=== PATIENT | female | born 1965 | race Caucasian/White ===

== ENCOUNTER 2017-08-16 19:47 | Emergency (ER) | payer OTHER ==
[2017-08-16 20:07] VITALS: BP 147/79; PULSE 69; TEMP 98.8; BMI 16.6
--- NOTE | 2017-08-16 20:09 | PDOC ---
Rapid Medical Evaluation Chief Complaint: Chest Pain Time Seen by Provider: 08/16/17 20:06 Medical Evaluation: Allergies Allergy/AdvReac Type Severity Reaction Status Date / Time No Known Allergies Allergy Verified 08/16/17 20:03 08/16/17 20:06 The patient presents with a chief complaint of: [Mid sternal chest pain to the left shoulder and back for one week. ] I have performed a brief in-person evaluation of this patient. Pertinent physical exam findings: vss, [Lungs clear, RRR,, ] I have ordered the following: [EKG] The patient will proceed to the ED for further evaluation. Discharge Disposition - Diagnosis Chest pain - Referrals - Patient Instructions - Post Discharge Activity
--- NOTE | 2017-08-16 20:58 | PDOC ---
History of Present Illness - General History Source: Patient <RosanaDari yuen - Last Filed: 08/17/17 00:51> <Nicky Landeros - Last Filed: 08/17/17 01:42> - General Chief Complaint: Chest Pain Stated Complaint: CHEST PAIN Time Seen by Provider: 08/16/17 20:06 - History of Present Illness Initial Comments: 08/16/17 22:29 The patient is a 52 year old female, with a significant past medical history of hypertension, H.Pylori, and a heart problem (reportedly prescribed verapamil in the past s/p echocardiogram) who presents to the emergency department with intermittent, anterior chest pain radiating to her posterior left shoulder for about 15 days. The patient states she was prompted to come to the ED today because her chest pain was much stronger. She reportedly took Tylenol for her chest pain with no relief. She denies any alleviating or exacerbating factors of pain. She also reports a few days with diffuse headache, nasal congestion, dry cough, nausea, and vomiting. The patients daughter at bedside states her mother vomits every day for a long time, however, the patient does not know why she vomits daily. The patient denies hematemesis or abdominal pain. She denies shortness of breath and dizziness. She denies fever, chills, diarrhea and constipation. She denies dysuria, frequency, urgency and hematuria. Allergies: NKDA Past surgical history: appendectomy, PCP: Dr. Slim Freed ([facility]) (Dari Harris) Past History <Dari Harris - Last Filed: 08/17/17 00:51> - Past Medical History COPD: No Diabetes: Yes Psychiatric Problems: Yes Other medical history: arthritis - Surgical History Appendectomy: Yes - Suicide/Smoking/Psychosocial Hx Smoking Status: No Smoking History: Never smoked Number of Cigarettes Smoked Daily: 0 If you are a former smoker, when did you quit?: 6 months ago Information on smoking cessation initiated: No <Nicky Landeros - Last Filed: 08/17/17 01:42> - Past Medical History Allergies/Adverse Reactions: Allergies Allergy/AdvReac Type Severity Reaction Status Date / Time No Known Allergies Allergy Verified 08/16/17 20:03 Review of Systems - Review of Systems Able to Perform ROS?: Yes <Dari Harris - Last Filed: 08/17/17 00:51> <Nicky Landeros - Last Filed: 08/17/17 01:42> - Review of Systems Comments:: 08/16/17 22:29 CONSTITUTIONAL: Absent: fever, chills, diaphoresis, generalized weakness, malaise, loss of appetite HEENT: (+) nasal congestion,Absent: rhinorrhea, throat pain, throat swelling, difficulty swallowing, mouth swelling, ear pain, eye pain, visual Changes CARDIOVASCULAR: (+) anterior chest pain radiating to back, Absent: syncope, palpitations, irregular heart rate, lightheadedness, peripheral edema RESPIRATORY: (+) dry cough. Absent: shortness of breath, dyspnea with exertion, orthopnea, wheezing, stridor, hemoptysis GASTROINTESTINAL: (+) nausea, vomiting, Absent: abdominal pain, abdominal distension,diarrhea, constipation, melena, hematochezia GENITOURINARY: Absent: dysuria, frequency, urgency, hesitancy, hematuria, flank pain, genital pain MUSCULOSKELETAL: Absent: myalgia, arthralgia, joint swelling SKIN: Absent: rash, itching, pallor HEMATOLOGIC/IMMUNOLOGIC: Absent: easy bleeding, easy bruising, lymphadenopathy, frequent infections ENDOCRINE: Absent: unexplained weight gain, unexplained weight loss, heat intolerance, cold intolerance NEUROLOGIC: (+) headache,Absent: focal weakness or paresthesias, dizziness, unsteady gait, seizure, mental status changes, bladder or bowel incontinence PSYCHIATRIC: Absent: anxiety, depression, suicidal or homicidal ideation, hallucinations. (Dari Harris) *Physical Exam <Dari Harris - Last Filed: 08/17/17 00:51> <Nicky Landeros - Last Filed: 08/17/17 01:42> - Vital Signs Last Vital Signs Temp Pulse Resp BP Pulse Ox 98.8 F 69 20 147/79 100 08/16/17 20:03 08/16/17 20:03 08/16/17 20:03 08/16/17 20:03 08/16/17 20:03 - Physical Exam Comments: 08/16/17 22:30 GENERAL: Well developed, well nourished. Awake and alert. No acute distress. HEENT: (+)dry mucous membranes. Normocephalic, atraumatic. PERRLA, EOMI. No conjunctival pallor. Sclera are non-icteric. Oropharynx is clear. NECK: Supple. Full ROM. No JVD. Carotid pulses 2+ and symmetric, without bruits. No thyromegaly. No lymphadenopathy. CARDIOVASCULAR: Regular rate and rhythm. No murmurs, rubs, or gallops. Distal pulses are 2+ and symmetric. PULMONARY: No evidence of respiratory distress. Lungs clear to auscultation bilaterally. No wheezing, rales or rhonchi. ABDOMINAL: Soft. Non-tender. Non-distended. No rebound or guarding. No organomegaly. Normoactive bowel sounds. MUSCULOSKELETAL Normal range of motion at all joints. No bony deformities or tenderness. No CVA tenderness. EXTREMITIES: No cyanosis. No clubbing. No edema. No calf tenderness. SKIN: Warm and dry. Normal capillary refill. No rashes. No jaundice. NEUROLOGICAL: Alert, awake, appropriate. Cranial nerves 2-12 intact. Normoreflexic in the upper and lower extremities. Normal speech. Toes are down-going bilaterally. Gait is normal without ataxia. PSYCHIATRIC: Cooperative. Good eye contact. Appropriate mood and affect. (Dari Harris) Heart Score/ECG Review <Dari Harris - Last Filed: 08/17/17 00:51> <Nicky Landeros - Last Filed: 08/17/17 01:42> - ECG Intrepretation Comment:: 08/16/17 23:58 EKG was read by Dr. Landeros at 20:13 Impression: Normal sinus rhythm, possible left atrial enlargement Vent. Rate: 63 bpm (Dari Harris) ED Treatment Course - LABORATORY CBC & Chemistry Diagram: 08/16/17 21:10 08/16/17 21:10 <Dari Harris - Last Filed: 08/17/17 00:51> - LABORATORY CBC & Chemistry Diagram: 08/16/17 21:10 08/16/17 21:10 <Nicky Landeros - Last Filed: 08/17/17 01:42> - ADDITIONAL ORDERS Additional order review: Laboratory Results 08/16/17 08/16/17 21:10 21:10 PT with INR 13.60 H INR 1.20 H Sodium 138 Potassium 4.4 Chloride 101 Carbon Dioxide 32 Anion Gap 5 L BUN 11 Creatinine 0.6 Creat Clearance w eGFR > 60 Random Glucose 296 H Calcium 8.0 L Magnesium 1.8 Total Bilirubin 0.1 L D AST 65 H ALT 94 H Alkaline Phosphatase 187 H Creatine Kinase 68 Troponin I < 0.02 Total Protein 6.6 Albumin 3.0 L 08/16/17 21:39 Influenza Types A,B Antigen (JOAO) - Final Nasopharyngeal Swab - Final 08/16/17 21:10 RBC 3.66 D MCV 85.5 MCHC 34.1 RDW 13.6 MPV 7.9 Neutrophils % 52.1 D Lymphocytes % 32.5 D Monocytes % 11.2 H Eosinophils % 3.1 Basophils % 1.1 D - RADIOLOGY Radiology Studies Ordered: Category Date Time Status CHEST X-RAY PORTABLE* [RAD] Stat Radiology 08/16/17 21:00 Completed ABDOMEN US -LIMITED [US] Stat Ultrasound 08/17/17 23:25 Taken Radiograph Interpretation: EXAM#: TYPE/EXAM: RESULT: [id number] RAD/CHEST X-RAY PORTABLE* Exam: Chest x-ray - single AP portable view. Indication: Chest pain. Comparison: None available. Findings: No evidence of airspace consolidation, pulmonary vascular congestion or pleural effusion. CT is more sensitive in detecting pulmonary nodules. There is no definable pneumothorax. Normal size of the cardiomediastinal silhouette. No abnormal deviation of the trachea. Impression: No evidence of airspace consolidation or pleural effusion. Reported By: Stefano Allen DO 08/17/17 0041 EXAM: ABDOMEN US -LIMITED HISTOR and Y: Abdominal pain COMPARISON: None. FINDINGS: Liver appears normal with no focal mass. Pancreas appears normal. Aorta appears normal. Inferior vena cava appears normal. Gallbladder is normal. Common bile duct is 4 mm which is normal. Right kidney appears normal. IMPRESSION: No acute findings Sohail Hobbs MD 08/17/2017 00:35 EST (Dari Harris) - Medications Given in the ED: ED Medications Discontinued Medications Generic Name Dose Route Start Last Admin Trade Name Freq PRN Reason Stop Dose Admin Aspirin 162 mg 08/16/17 20:59 08/16/17 21:15 Asa - PO 08/16/17 21:00 162 mg ONCE ONE Administration Diphenhydramine HCl 25 mg 08/16/17 23:32 08/16/17 23:51 Benadryl Injection - IVPUSH 08/16/17 23:33 25 mg ONCE ONE Administration Hydromorphone HCl 0.5 mg 08/16/17 23:23 08/16/17 23:25 Dilaudid Injection - IVPB 08/16/17 23:24 0.5 mg ONCE ONE Administration Sodium Chloride 1,000 mls @ 1,000 mls/hr 08/16/17 23:14 08/16/17 23:25 Normal Saline - IV 08/17/17 00:13 1,000 mls/hr ASDIR STA Administration Metoclopramide HCl 10 mg 08/16/17 23:31 08/16/17 23:51 Reglan Injection - IVPB 08/16/17 23:32 10 mg ONCE STA Administration Medical Decision Making <Dari Harris - Last Filed: 08/17/17 00:51> <Nicky Landeros - Last Filed: 08/17/17 01:42> - Medical Decision Making 08/16/17 22:01 52-year-old female presents with complaints of nasal congestion, headache, 15 days of left-sided chest pain radiating to his shoulder, chronic nausea and vomiting, hemorrhoids Past medical history significant for diabetes surgical history appendectomy, C- section 2 EKG is normal sinus rhythm at [address] Freed at [facility] cbc,comp,influenza (Nicky Landeros) *DC/Admit/Observation/Transfer <Dari Harris - Last Filed: 08/17/17 00:51> <Nicky Landeros - Last Filed: 08/17/17 01:42> Diagnosis at time of Disposition: Atypical chest pain, Nausea Diabetes Qualifiers: Diabetes mellitus type: type 1 Diabetes mellitus complication status: with hyperglycemia Qualified Code(s): E10.65 - Type 1 diabetes mellitus with hyperglycemia Pain in shoulder Qualifiers: Chronicity: unspecified Laterality: left Qualified Code(s): M25.512 - Pain in left shoulder - Discharge Dispostion Disposition: HOME Condition at time of disposition: Stable - Referrals Referrals: ON STAFF,NOT [Primary Care Provider] - - Patient Instructions Printed Discharge Instructions: DI for Nausea -- Adult, DI for Atypical Chest Pain, Type 1 Diabetes, DI for Diabetes Type 1 -- Adult, DI for Itching Additional Instructions: please followup with your doctor Continue your regular medications Print Language: BELARUSIAN - Post Discharge Activity - Attestations Scribe Attestion: 08/16/17 22:31 Documentation prepared by Dari Harris, acting as medical lab technologist for Nicky Landeros MD (Dari Harris)
[2017-08-16] MEDS ORDERED: ASPIRIN 81 MG CHEWABLE TABLETS PO ONE (20:59)
[2017-08-16] MEDS ORDERED: ASPIRIN COATED 81 MG TABLET.EC ONE (21:35)
[2017-08-16 21:42] LABS: BASO % 1.1 % (0-2.0); EOS % 3.1 % (0-4.5); HEMATOCRIT 31.3 % (32.4-45.2); HEMOGLOBIN 10.7 GM/dL (10.7-15.3); LYMPH % 32.5 % (8-40); MCH 29.2 pg (25.7-33.7); MCHC 34.1 g/dl (32.0-36.0); MEAN CELL VOLUME 85.5 fl (80-96); MEAN PLT VOLUME 7.9 fl (7.5-11.1); MONO % 11.2 % (3.8-10.2); NEUT % 52.1 % (42.8-82.8); PLATELET COUNT 401 K/MM3 (134-434); RBC 3.66 M/mm3 (3.60-5.2); RDW 13.6 % (11.6-15.6); WHITE BLOOD COUNT 6.5 K/mm3 (4.0-10.0)
[2017-08-16 21:52] LABS: INR 1.2 (0.82-1.09); PROTHROMBIN TIME (PATIENT) 13.6 SEC (9.98-11.88)
[2017-08-16 22:30] LABS: ANION GAP 5 (8-16); BILIRUBIN,TOTAL 0.1 mg/dL (0.2-1.0); BLOOD UREA NITROGEN 11 mg/dL (7-18); CHLORIDE 101 mmol/L (98-107); CO2 32 mmol/L (21-32); CREATININE 0.6 mg/dL (0.55-1.02); GLUCOSE,RANDOM 296 mg/dL (74-106); MAGNESIUM 1.8 mg/dL (1.8-2.4); POTASSIUM 4.4 mmol/L (3.5-5.1); SGOT/AST 65 U/L (15-37); SGPT/ALT 94 U/L (12-78); SODIUM 138 mmol/L (136-145); TOT PROT 6.6 g/dl (6.4-8.2)
[2017-08-16 22:34] LABS: ALK PHOS 187 U/L (45-117)
[2017-08-16] MEDS ORDERED: SODIUM CHLORIDE 1,000 ML IV STA (23:14)
[2017-08-16] MEDS ORDERED: HYDROmorphone HCL CARPU-JECT 1 MG/1 ML DISP.SYRIN IVPB ONE (23:23)
[2017-08-16] MEDS ORDERED: HYDROmorphone HCL CARPU-JECT 2 MG/1 ML DISP.SYRIN ONE (23:27)
[2017-08-16] MEDS ORDERED: METOCLOPRAMIDE HCL INJECTION 10 MG/2 ML VIAL IVPB STA (23:31)
[2017-08-16] MEDS ORDERED: METOCLOPRAMIDE HCL INJECTION 10 MG/2 ML VIAL ONE (23:32)
[2017-08-16] MEDS ORDERED: ONDANSETRON 4 MG/2 ML VIAL ONE (23:59)
--- NOTE | 2017-08-17 14:05 | EKG ---
Test Reason : Blood Pressure : / mmHG Vent. Rate : 063 BPM Atrial Rate : 063 BPM P-R Int : 146 ms QRS Dur : 090 ms QT Int : 416 ms P-R-T Axes : 065 078 079 degrees QTc Int : 425 ms NORMAL SINUS RHYTHM POSSIBLE LEFT ATRIAL ENLARGEMENT BORDERLINE ECG WHEN COMPARED WITH ECG OF 18-SEP-2011 15:45, NO SIGNIFICANT CHANGE WAS FOUND Confirmed by MD CHI, SHAYLA ([id number]) on 08/17/2017 2:05:41 PM Referred By: Confirmed By:SHAYLA MIRELES MD
== END 2017-08-17 01:38 | disposition home or self-care (01) ==
LOC: JER 19:47
PROC: 3E033NZ Introduction of Analgesics, Hypnotics, Sedatives into Peripheral Vein, Percutaneous Approach (ICD-10-PCS; principal; 2017-08-16)
PROC: 3E033GC Introduction of Other Therapeutic Substance into Peripheral Vein, Percutaneous Approach (ICD-10-PCS; 2017-08-16)
PROC: 3E033GC Introduction of Other Therapeutic Substance into Peripheral Vein, Percutaneous Approach (ICD-10-PCS; 2017-08-16)
DX: R07.89 Other chest pain (principal); M25.512 Pain in left shoulder; E10.65 Type 1 diabetes mellitus with hyperglycemia; I10 Essential (primary) hypertension
CPT/HCPCS: 36415; 71045-TC; 76705-TC; 80053; 82550; 83735; 84484; 85025; 85610; 87804; 93005; 93010; 96374; 96375; 96376; 99283-25

== ENCOUNTER 2017-12-04 11:08 | Emergency (ER) | payer OTHER ==
[2017-12-04 11:12] VITALS: BP 113/65; PULSE 79; TEMP 98.3; BMI 18.3
[2017-12-04] MEDS ORDERED: IBUPROFEN 400 MG TABLET (FP) PO ONE ×2 (12:20)
--- NOTE | 2017-12-04 12:32 | PDOC ---
History of Present Illness - General Chief Complaint: Eye Problem Stated Complaint: PAIN Time Seen by Provider: 12/04/17 11:31 History Source: Patient - History of Present Illness Timing/Duration: other (last night) Associated Symptoms: denies: headaches Past History - Past Medical History Allergies/Adverse Reactions: Allergies Allergy/AdvReac Type Severity Reaction Status Date / Time No Known Allergies Allergy Verified 12/04/17 11:11 Home Medications: Ambulatory Orders Hypromellose 0.5% Opth Soln [Artificial Tears] 1 - 2 drop OS DAILY #1 dropsbtl 12/04/17 Ibuprofen [Motrin -] 2 tab PO Q6H #30 tablet 12/04/17 COPD: No Diabetes: Yes Psychiatric Problems: Yes - Surgical History Appendectomy: Yes - Suicide/Smoking/Psychosocial Hx Smoking Status: No Smoking History: Never smoked Number of Cigarettes Smoked Daily: 0 If you are a former smoker, when did you quit?: 6 months ago Review of Systems - Review of Systems HEENTM: Yes: Eye Pain. No: Blurred Vision, Tearing Neurological: No: Headache, Dizziness *Physical Exam - Vital Signs Last Vital Signs Temp Pulse Resp BP Pulse Ox 98.3 F 79 18 113/65 100 12/04/17 11:09 12/04/17 11:09 12/04/17 11:09 12/04/17 11:09 12/04/17 11:09 - Physical Exam General Appearance: Yes: Appropriately Dressed. No: Apparent Distress HEENT: positive: Normal Voice, Other (b/l yellow fleshy deposits to nasal/ temporal conjunctiva of b/l eyes w/ erythema over L temporal pinguela extending to cornea w/ space between pinguela and edge of cornea c/w pingueculitis) Neck: positive: Supple Respiratory/Chest: negative: Respiratory Distress Integumentary: positive: Dry, Warm Neurologic: positive: Fully Oriented, Alert, Normal Mood/Affect Medical Decision Making - Medical Decision Making 12/04/17 12:23 52-year-old female, history of insulin-dependent diabetic, here with pain and redness to left eye that patient noticed last night. Denies discharge, tearing , photophobia, foreign body sensation or visual changes. No trauma and no contact lens use. No history of similar episode. Not on any blood thinners. See exam Possible pingueculitis Pt has b/l pinguecula w/ erythema over temporal pinguecula of L eye w/ space between pinguecula and edge of cornea -pain control in ER -dc w/ artificial tears and optho referral for further eval/management *DC/Admit/Observation/Transfer Diagnosis at time of Disposition: Pinguecula of both eyes, Pingueculitis of left eye - Discharge Dispostion Disposition: HOME Condition at time of disposition: Good - Prescriptions Prescriptions: Hypromellose 0.5% Opth Soln [Artificial Tears] 1 - 2 drop OS DAILY #1 dropsbtl Ibuprofen [Motrin -] 2 tab PO Q6H #30 tablet - Referrals Referrals: ON STAFF,NOT [Primary Care Provider] - Haseeb Ontiveros MD [Staff Physician] - - Patient Instructions Additional Instructions: It appears that she will have a condition called pinguecula of both eyes, which typically present as fleshy yellow deposits over the white area of your eyes. The redness and irritation of your left eye is possibly caused by inflammation of the pinguecula. Take Motrin for pain and use artificial tears as directed. You will need to follow-up with the eye doctor next week for further evaluation and management as necessary. Return to ER if symptoms worsen - Post Discharge Activity
== END 2017-12-04 12:48 | disposition home or self-care (01) ==
LOC: JERFT 11:08
DX: H10.813 Pingueculitis, bilateral (principal)
CPT/HCPCS: 99281-25

== ENCOUNTER 2018-04-26 01:49 | Inpatient (IN) | payer OTHER ==
[2018-04-26] MEDS ORDERED: PANTOPRAZOLE SODIUM 40 MG in SODIUM CHLORIDE 100 ML IVPB ONE (02:53)
[2018-04-26] MEDS ORDERED: ONDANSETRON 4 MG/2 ML VIAL IVPB ONE ×2 (02:53→05:50)
[2018-04-26] MEDS ORDERED: ACETAMINOPHEN 1000 MG/100 ML VIAL (NON FORMULARY) IVPB ONE (02:53)
--- NOTE | 2018-04-26 03:05 | PDOC ---
History of Present Illness - General Chief Complaint: Pain, Acute Stated Complaint: ABD PAIN,FEVER Time Seen by Provider: 04/26/18 02:45 - History of Present Illness Initial Comments: 04/26/18 02:55 52 F with h/o DM1, HTN, H pylori presenting with L sided abdominal pain and vomiting. Pt states that the pain began yesterday. It comes in waves and is severe when it occurs. Denies F/C. Endorses several episodes of vomiting. States that she started having dark colored vomitus with some blood. Denies BRBPR, denies melena. Has had prior and appendectomy. Denies flank pain. Past History - Past Medical History Allergies/Adverse Reactions: Allergies Allergy/AdvReac Type Severity Reaction Status Date / Time No Known Allergies Allergy Verified 04/26/18 02:03 Home Medications: Ambulatory Orders Hypromellose 0.5% Opth Soln [Artificial Tears] 1 - 2 drop OS DAILY #1 dropsbtl 12/04/17 Atorvastatin Calcium [Lipitor] 10 mg HS 04/26/18 Insulin Aspart [Novolog] 30 unit SQ AC 04/26/18 Insulin Glargine,Hum.rec.anlog [Basaglar Kwikpen U-100] 40 unit SQ BID 04/26/18 Montelukast Na [Singulair -] 10 mg PO HS 04/26/18 Polyethylene Glycol 3350 [Miralax (For Daily Use) -] 17 gm PO DAILY 04/26/18 Sennosides [Senna] 17.2 mg PO DAILY 04/26/18 Asthma: Yes COPD: No Diabetes: Yes GI Disorders: Yes (chronic constipation) HTN: No Hypercholesterolemia: Yes Psychiatric Problems: Yes - Surgical History Appendectomy: Yes - Immunization History Immunization Up to Date: Yes - Suicide/Smoking/Psychosocial Hx Smoking Status: No Smoking History: Never smoked Have you smoked in the past 12 months: No Number of Cigarettes Smoked Daily: 0 If you are a former smoker, when did you quit?: 6 months ago Information on smoking cessation initiated: No Hx Alcohol Use: No Drug/Substance Use Hx: No Review of Systems - Review of Systems Comments:: 04/26/18 02:58 GENERAL/CONSTITUTIONAL: No fever or chills. No weakness. HEAD, EYES, EARS, NOSE AND THROAT: No change in vision. No ear pain or discharge. No sore throat. CARDIOVASCULAR: No chest pain or shortness of breath. RESPIRATORY: No cough, wheezing, or hemoptysis. GASTROINTESTINAL: + abdominal pain, nausea, and vomiting, no diarrhea or constipation. GENITOURINARY: No dysuria, frequency, or change in urination. MUSCULOSKELETAL: No joint or muscle swelling or pain. No neck or back pain. SKIN: No rash NEUROLOGIC: No headache, vertigo, loss of consciousness, or change in strength/ sensation. ENDOCRINE: No increased thirst. No abnormal weight change. HEMATOLOGIC/LYMPHATIC: No anemia, easy bleeding, or history of blood clots. ALLERGIC/IMMUNOLOGIC: No hives or skin allergy. *Physical Exam - Vital Signs Last Vital Signs Temp Pulse Resp BP Pulse Ox 98.3 F 81 18 138/76 98 04/26/18 01:50 04/26/18 01:50 04/26/18 01:50 04/26/18 01:50 04/26/18 01:50 - Physical Exam Comments: 04/26/18 02:59 GENERAL: Awake, alert, and fully oriented, in no acute distress. HEAD: No signs of trauma EYES: PERRLA, EOMI, sclera anicteric, conjunctiva clear ENT: Auricles normal inspection, hearing grossly normal, nares patent, oropharynx clear without exudates. Moist mucosa NECK: Nontender, no stepoffs, Normal ROM, supple, no lymphadenopathy, JVD, or masses LUNGS: Breath sounds equal, clear to auscultation bilaterally. No wheezes, and no crackles HEART: Regular rate and rhythm, normal S1 and S2, no murmurs, rubs or gallops ABDOMEN: +LUQ and LLQ TTP, normoactive bowel sounds. No guarding, no rebound. No masses EXTREMITIES: Normal range of motion, no edema. No clubbing or cyanosis. No cords, erythema, or tenderness NEUROLOGICAL: Cranial nerves II through XII intact. 5/5 strength and sensation in all extremities, Normal speech, normal gait, normal cerebellar function SKIN: Warm, Dry, normal turgor, no rashes or lesions noted. ED Treatment Course - LABORATORY CBC & Chemistry Diagram: 04/26/18 03:18 04/26/18 03:18 - RADIOLOGY Radiology Studies Ordered: Category Date Time Status ABDOMEN & PELVIS CT WITH CONTR [CT] Stat CT Scan 04/26/18 02:53 Ordered Medical Decision Making - Medical Decision Making 04/26/18 02:59 52 F with L sided abdominal pain. Suspect gastritis vs PUD vs gastroparesis. Will obtain CT to r/o colitis vs diverticulitis. - Labs, lipase - CTAP - IVF, zofran, protonix 04/26/18 05:[address] shows duodenitis Pt reassessed - stilll complaining of nausea and lightheadedness. Will order more zofran, fluids, and maalox *DC/Admit/Observation/Transfer Diagnosis at time of Disposition: Duodenitis Nausea and vomiting Qualifiers: Vomiting type: unspecified Vomiting Intractability: intractable Qualified Code( s): R11.2 - Nausea with vomiting, unspecified Diabetes Qualifiers: Diabetes mellitus type: type 2 Diabetes mellitus care home insulin use: unspecified intermediate accountant insulin use status Diabetes mellitus complication status: with unspecified complications Qualified Code(s): E11.8 - Type 2 diabetes mellitus with unspecified complications - Discharge Dispostion Condition at time of disposition: Fair - Referrals - Patient Instructions - Post Discharge Activity - Attestations Physician Attestion: 04/26/18 20:22 I, Dr. Terrance Madrigal MD, attest that this document has been prepared under my direction and personally reviewed by me in its entirety. I further attest, that it accurately reflects all work, treatment, procedures and medical decision -making performed by me.
[2018-04-26 03:29] LABS: BASO % 0.2 % (0-2.0); EOS % 3.2 % (0-4.5); HEMATOCRIT 34.1 % (32.4-45.2); HEMOGLOBIN 11.7 GM/dL (10.7-15.3); LYMPH % 12.4 % (8-40); MCH 29.3 pg (25.7-33.7); MCHC 34.4 g/dl (32.0-36.0); MEAN CELL VOLUME 85.1 fl (80-96); MEAN PLT VOLUME 7.2 fl (7.5-11.1); MONO % 9.6 % (3.8-10.2); NEUT % 74.6 % (42.8-82.8); PLATELET COUNT 395 K/MM3 (134-434); RDW 12.9 % (11.6-15.6); WHITE BLOOD COUNT 11.6 K/mm3 (4.0-10.0)
[2018-04-26 03:54] LABS: ALBUMIN 3.2 g/dl (3.4-5.0); ALK PHOS 142 U/L (45-117); ANION GAP 5 MMOL/L (8-16); BILIRUBIN,TOTAL 0.3 mg/dL (0.2-1); BLOOD UREA NITROGEN 8 mg/dL (7-18); CALCIUM 8.6 mg/dL (8.5-10.1); CHLORIDE 99 mmol/L (98-107); CO2 31 mmol/L (21-32); CREATININE 0.5 mg/dL (0.55-1.3); GLUCOSE,RANDOM 255 mg/dL (74-106); LIPASE 69 U/L (73-393); POTASSIUM 4.8 mmol/L (3.5-5.1); SGOT/AST 21 U/L (15-37); SGPT/ALT 39 U/L (13-61); SODIUM 135 mmol/L (136-145)
[2018-04-26 04:30] LABS: ACETONE SERUM NEGATIVE (NEGATIVE)
[2018-04-26] MEDS ORDERED: morphine CARPU-JECT 4 MG/1 ML DISP.SYRIN IVPUSH ONE (04:42)
[2018-04-26 04:45] LABS: URINE APPEARANCE CLEAR; URINE BILIRUBIN NEGATIVE (<2.0 mg/dL); URINE COLOR STRAW; URINE GLUCOSE (UA) 3+ (NEGATIVE); URINE KETONE NEGATIVE (NEGATIVE); URINE LEUK ESTERASE NEGATIVE (NEGATIVE); URINE NITRITE NEGATIVE (NEGATIVE); URINE PROTEIN NEGATIVE (NEGATIVE); URINE UROBILINOGEN NEGATIVE mg/dL (0.2-1.0)
[2018-04-26] MEDS ORDERED: MAG HYDROX/AL HYDROX/SIMETH 30 ML UNIT-DOSE CUP PO ONE (05:50)
[2018-04-26] MEDS ORDERED: SODIUM CHLORIDE 1,000 ML IV STA (05:50)
[2018-04-26] MEDS ORDERED: MAG HYDROX/AL HYDROX/SIMETH 30 ML UNIT-DOSE CUP ONE (05:52)
[2018-04-26] MEDS ORDERED: ONDANSETRON 4 MG/2 ML VIAL ONE (05:53)
[2018-04-26] MEDS ORDERED: METOCLOPRAMIDE HCL INJECTION 10 MG/2 ML VIAL IVPUSH ONE (06:40)
[2018-04-26] MEDS ORDERED: METOCLOPRAMIDE HCL INJECTION 10 MG/2 ML VIAL ONE (06:47)
--- NOTE | 2018-04-26 07:52 | PDOC ---
*Physical Exam - Vital Signs Last Vital Signs Temp Pulse Resp BP Pulse Ox 98.3 F 81 18 138/76 98 04/26/18 01:50 04/26/18 01:50 04/26/18 01:50 04/26/18 01:50 04/26/18 01:50 - Physical Exam Comments: 04/26/18 07:48 Vital signs within normal limits Generally weak appearing, dry mucosa, no jaundice or pallor Heart is regular, lungs are clear Abdomen is soft and nondistended, diffusely tender without focal guarding or rebound, bowel sounds are slightly decreased ED Treatment Course - LABORATORY CBC & Chemistry Diagram: 04/26/18 03:18 04/26/18 03:18 - ADDITIONAL ORDERS Additional order review: Laboratory Results 04/26/18 04/26/18 04/26/18 04:38 03:18 03:18 Sodium Potassium Chloride Carbon Dioxide Anion Gap BUN Creatinine Creat Clearance w eGFR Random Glucose Calcium Phosphorus 3.3 Magnesium 1.9 Total Bilirubin AST ALT Alkaline Phosphatase Creatine Kinase Troponin I Total Protein Albumin Lipase Urine Color Straw Urine Appearance Clear Urine pH 7.0 Ur Specific [place] 1.020 Urine Protein Negative Urine Glucose (UA) 3+ H Urine Ketones Negative Urine Blood Negative Urine Nitrite Negative Urine Bilirubin Negative Urine Urobilinogen Negative Ur Leukocyte Esterase Negative Acetone, Qual 04/26/18 04/26/18 03:18 03:18 Sodium 135 L Potassium 4.8 Chloride 99 Carbon Dioxide 31 Anion Gap 5 L BUN 8 Creatinine 0.5 L Creat Clearance w eGFR > 60 Random Glucose 255 H Calcium 8.6 Phosphorus Magnesium Total Bilirubin 0.3 AST 21 ALT 39 Alkaline Phosphatase 142 H Creatine Kinase 46 Troponin I < 0.02 Total Protein 7.0 Albumin 3.2 L Lipase 69 L Urine Color Urine Appearance Urine pH Ur Specific [place] Urine Protein Urine Glucose (UA) Urine Ketones Urine Blood Urine Nitrite Urine Bilirubin Urine Urobilinogen Ur Leukocyte Esterase Acetone, Qual Negative L 04/26/18 03:18 RBC 4.00 MCV 85.1 MCHC 34.4 RDW 12.9 MPV 7.2 L Neutrophils % 74.6 D Lymphocytes % 12.4 D Monocytes % 9.6 Eosinophils % 3.2 Basophils % 0.2 - Medications Given in the ED: ED Medications Discontinued Medications Generic Name Dose Route Start Last Admin Trade Name Freq PRN Reason Stop Dose Admin Acetaminophen 1,000 mg 04/26/18 02:53 04/26/18 03:15 Ofirmev Injection - IVPB 04/26/18 02:54 1,000 mg ONCE ONE Administration Al Hydroxide/Mg Hydroxide 30 ml 04/26/18 05:50 04/26/18 06:00 Mylanta Oral Suspension - PO 04/26/18 05:51 30 ml ONCE ONE Administration Pantoprazole Sodium 40 mg/ 100 mls @ 200 mls/hr 04/26/18 02:53 04/26/18 03:15 Sodium Chloride IVPB 04/26/18 03:22 200 mls/hr ONCE ONE Administration Sodium Chloride 1,000 mls @ 1,000 mls/hr 04/26/18 05:50 04/26/18 06:00 Normal Saline - IV 04/26/18 06:49 1,000 mls/hr ASDIR STA Administration Metoclopramide HCl 10 mg 04/26/18 06:40 04/26/18 06:51 Reglan Injection - IVPUSH 04/26/18 06:41 10 mg ONCE ONE Administration Morphine Sulfate 4 mg 04/26/18 04:42 04/26/18 05:00 Morphine Injection - IVPUSH 04/26/18 04:43 4 mg ONCE ONE Administration Ondansetron HCl 4 mg 04/26/18 02:53 04/26/18 03:15 Zofran Injection IVPB 04/26/18 02:54 4 mg ONCE ONE Administration Ondansetron HCl 4 mg 04/26/18 05:50 04/26/18 06:00 Zofran Injection IVPB 04/26/18 05:51 4 mg ONCE ONE Administration Medical Decision Making - Medical Decision Making 04/26/18 07:49 This is a 52-year-old female with history of hypertension, diabetes, possible gastritis versus ulcer disease, surgical history significant for appendectomy and presents today with nausea/vomiting, possibly bloody. Vitals in the emergency department have been within normal limits, labs were also normal including lipase and urinalysis, a CAT scan of the abdomen and pelvis was preliminarily read as duodenitis but no evidence of obstruction. The patient's symptoms improved after one round of medications but then returned and required a second round. Plan at sign out was to reassess and disposition accordingly. On my reevaluation, the patient remains nauseous and in pain and is unwilling to tolerate by mouth at this time. Suspect severe gastritis with intractable nausea/vomiting versus gastroparesis picture in this diabetic patient. Patient states prior similar episodes have required admission , her last endoscopy was many years ago. Her primary care and GI specialist are D[facility]. Continue IV fluid hydration, admit. 04/26/18 08:23 Accepted for inpt med/surg by Dr. Andrews, signout given to Dr. Ibrahim *DC/Admit/Observation/Transfer Diagnosis at time of Disposition: Duodenitis Nausea and vomiting Qualifiers: Vomiting type: unspecified Vomiting Intractability: intractable Qualified Code( s): R11.2 - Nausea with vomiting, unspecified Diabetes Qualifiers: Diabetes mellitus type: type 2 Diabetes mellitus roasterman insulin use: unspecified roasterman insulin use status Diabetes mellitus complication status: with unspecified complications Qualified Code(s): E11.8 - Type 2 diabetes mellitus with unspecified complications - Discharge Dispostion Condition at time of disposition: Fair Decision to Admit order: Yes - Referrals - Patient Instructions - Post Discharge Activity
--- NOTE | 2018-04-26 08:26 | HP ---
CHIEF COMPLAINT: N/V and abdominal pain PCP: [facility] HISTORY OF PRESENT ILLNESS: 52yo F with history of DM1, HTN, previous H. Pylori infection multiple years ago who presents with nause, nonbilious vomiting and abdominal pain. With translation by her daughter, pt reports her nausea and vomiting starting about a month ago, however she came today to the ER because she started to see streaks of blood in her emesis. She reports seeing a submarine operator in [facility] who she follows with. Her last endoscopy was around 8 years ago and last colonscopy was around 6 years ago without any notable findings (per pt). Her last BM was around 2-3 days ago which was normal in caliber and quality, however she admits to using Miralax and Senna regularly due to constipation. Currently her abdominal pain as resolved, however upon admission she reports the pain was mostly LUQ without any particular radiation which gets better when eating food. ER course was notable for: (1) IVF hydration (1L NS total) (2) Multiple doses of Zofran and Reglan (3) Failed PO trial after treatment has initiated Recent Travel: Denies PAST MEDICAL HISTORY: As above PAST SURGICAL HISTORY: Appendectomy (when pt was child) x1 Social History: Smoking: Denies Alcohol: Denies Drugs: Denies Lives at home with daughter Family History: No history of colon, gastric, or pancreatic cancer Allergies No Known Allergies Allergy (Verified 04/26/18 02:03) HOME MEDICATIONS: Home Medications Medication Instructions Recorded Hypromellose 0.5% Opth Soln 1 - 2 drop OS DAILY #1 dropsbtl 12/04/17 [Artificial Tears] Atorvastatin Calcium [Lipitor] 10 mg HS 04/26/18 Montelukast Na [Singulair -] 10 mg PO HS 04/26/18 Polyethylene Glycol 3350 [Miralax 17 gm PO DAILY 04/26/18 (For Daily Use) -] Sennosides [Senna] 17.2 mg PO DAILY 04/26/18 REVIEW OF SYSTEMS CONSTITUTIONAL: Present: Loss of appetite Absent: fever, chills, diaphoresis, generalized weakness, malaise, weight change HEENT: Absent: rhinorrhea, nasal congestion, throat pain, throat swelling, difficulty swallowing, mouth swelling, ear pain, eye pain, visual changes CARDIOVASCULAR: Absent: chest pain, syncope, palpitations, irregular heart rate, lightheadedness , peripheral edema RESPIRATORY: Absent: cough, shortness of breath, dyspnea with exertion, orthopnea, wheezing, stridor, hemoptysis GASTROINTESTINAL: Present: Abdominal pain, nausea, vomiting Absent: abdominal distension, diarrhea, melena, hematochezia GENITOURINARY: Absent: dysuria, frequency, urgency, hesitancy, hematuria, flank pain MUSCULOSKELETAL: Absent: myalgia, arthralgia, joint swelling, back pain, neck pain SKIN: Absent: rash, itching, pallor PHYSICAL EXAMINATION Vital Signs - 24 hr 04/26/18 01:50 Temperature 98.3 F Pulse Rate 81 Respiratory 18 Rate Blood Pressure 138/76 O2 Sat by Pulse 98 Oximetry (%) GENERAL: NAD, awake, alert, and fully oriented HEENT: NC/AT, EOMi, SHAMA, sclera anicteric, [id number] mucosa NECK: No JVD LUNGS: CTA bilaterally. No wheezes, and no crackles. No accessory muscle use. HEART: RRR, normal S1 and S2 without murmur ABDOMEN: Soft, hypoactive BS, nondistended, tenderness in epigastric region L>R , minimal voluntary guarding, no masses, no ecchymotic regions, no hepatomegaly via percussion. RECTAL: Pt declined MUSCULOSKELETAL: No CVA tenderness. EXTREMITIES: 2+ DP pulses, warm, well-perfused. No peripheral edema PSYCHIATRIC: Cooperative. Good eye contact. Appropriate mood and affect. SKIN: Warm, dry, normal turgor, no rashes or lesions noted Laboratory Results - last 24 hr 04/26/18 04/26/18 04/26/18 03:18 03:18 03:18 WBC 11.6 H RBC 4.00 Hgb 11.7 Hct 34.1 MCV 85.1 MCH 29.3 MCHC 34.4 RDW 12.9 Plt Count 395 MPV 7.2 L Absolute Neuts (auto) 8.6 H Neutrophils % 74.6 D Lymphocytes % 12.4 D Monocytes % 9.6 Eosinophils % 3.2 Basophils % 0.2 Nucleated RBC % 0 Sodium 135 L Potassium 4.8 Chloride 99 Carbon Dioxide 31 Anion Gap 5 L BUN 8 Creatinine 0.5 L Creat Clearance w eGFR > 60 Random Glucose 255 H Calcium 8.6 Phosphorus Magnesium Total Bilirubin 0.3 AST 21 ALT 39 Alkaline Phosphatase 142 H Creatine Kinase 46 Troponin I < 0.02 Total Protein 7.0 Albumin 3.2 L Lipase 69 L Urine Color Urine Appearance Urine pH Ur Specific [place] Urine Protein Urine Glucose (UA) Urine Ketones Urine Blood Urine Nitrite Urine Bilirubin Urine Urobilinogen Ur Leukocyte Esterase Acetone, Qual Negative L 04/26/18 04/26/18 04/26/18 03:18 03:18 04:38 WBC RBC Hgb Hct MCV MCH MCHC RDW Plt Count MPV Absolute Neuts (auto) Neutrophils % Lymphocytes % Monocytes % Eosinophils % Basophils % Nucleated RBC % Sodium Potassium Chloride Carbon Dioxide Anion Gap BUN Creatinine Creat Clearance w eGFR Random Glucose Calcium Phosphorus 3.3 Magnesium 1.9 Total Bilirubin AST ALT Alkaline Phosphatase Creatine Kinase Troponin I Total Protein Albumin Lipase Urine Color Straw Urine Appearance Clear Urine pH 7.0 Ur Specific [place] 1.020 Urine Protein Negative Urine Glucose (UA) 3+ H Urine Ketones Negative Urine Blood Negative Urine Nitrite Negative Urine Bilirubin Negative Urine Urobilinogen Negative Ur Leukocyte Esterase Negative Acetone, Qual ASSESSMENT/PLAN: 52yo F with prolonged duration of nause and vomiting found to have duodenitis on CT a/p noncontrast and failed PO trial 1) Duodenitis with possible component of diabetic gastroparesis --Likely will need to r/o causes of duodenitis --H. Pylori stool Ag testing --TTG IgA --Streaks of blood seen is likely Vivi-Clemente tearing from multiple episodes of vomiting --GI consult placed --Zofran 4mg q4h PRN nausea --Reglan can alternate PRN for nausea if second agent needed --PO Trial once nausea and vomiting under control 2) DM --ISS --BGM ACHS --Pt's home medication Basaglar 40U BID and Novolog flexpen 20U TIDAC --Will place on Levem[place] 20U BID for basal insulin due to NPO status and will titrate as needed FEN: Fluids: LR@100cc/hr Electrolyte abnormalities: None currently Nutrition: Bowel rest for now PPX: DVT - SCDs; early ambulation GI - Protonix 40mg qDaily IVP Medications confirmed with pharmacy and patient Dispo: Admit to M/S Case discussed with Dr. Darryl Ibrahim, DO - IM PGY-2 Visit type - Emergency Visit Emergency Visit: Yes ED Registration Date: 04/26/18 Care time: The patient presented to the Emergency Department on the above date and was hospitalized for further evaluation of their emergent condition. - New Patient This patient is new to me today: Yes Date on this admission: 04/26/18 - Critical Care Critical Care patient: No
[2018-04-26] MEDS ORDERED: ONDANSETRON 4 MG/2 ML VIAL IVPUSH PRN (08:27)
[2018-04-26] MEDS ORDERED: SODIUM CHLORIDE 1,000 ML IV ONE (09:07)
[2018-04-26] MEDS: LACTATED RINGERS SOLUTION 1,000 ML/1,000 ML INFUS.BAG IV SCH ×2 (09:13→16:52)
--- NOTE | 2018-04-26 09:41 | PN ---
Teaching Attending Note Name of Resident: Earnest Ibrahim ATTENDING PHYSICIAN STATEMENT I saw and evaluated the patient. I reviewed the resident's note and discussed the case with the resident. I agree with the resident's findings and plan as documented. SUBJECTIVE: This is a 52 year old woman with a history of HTN, type 1 DM, H. pylori who comes to the ED complaining of abdominal pain, nausea, and vomiting. The pain is located in the LUQ and is relieved by eating. She has had symptoms for about 1 month. Today she noticed some bloody streaks when she vomited so she decided to come to the ED. She denies melena, rectal bleeding, weight loss, fever, chills. In the ED, she has been treated with IV fluid, Zofran, Reglan with no significant improvement. OBJECTIVE: Vital Signs Period Temp Pulse Resp BP Sys/Regalado Pulse Ox Last 24 Hr 98.3 F-98.4 F 64-81 17-18 89-138/56-76 98-98 HEART: S1S2, RRR LUNGS: Clear ABDOMEN: Soft, (+) epigastric tenderness, non-distended, normal BS EXTREMITIES: No edema Laboratory Tests 04/26/18 04/26/18 04/26/18 03:18 03:18 03:18 WBC 11.6 H RBC 4.00 Hgb 11.7 Hct 34.1 MCV 85.1 MCH 29.3 MCHC 34.4 RDW 12.9 Plt Count 395 MPV 7.2 L Absolute Neuts (auto) 8.6 H Neutrophils % 74.6 D Lymphocytes % 12.4 D Monocytes % 9.6 Eosinophils % 3.2 Basophils % 0.2 Nucleated RBC % 0 Sodium 135 L Potassium 4.8 Chloride 99 Carbon Dioxide 31 Anion Gap 5 L BUN 8 Creatinine 0.5 L Creat Clearance w eGFR > 60 Random Glucose 255 H Calcium 8.6 Phosphorus Magnesium Total Bilirubin 0.3 AST 21 ALT 39 Alkaline Phosphatase 142 H Creatine Kinase 46 Troponin I < 0.02 Total Protein 7.0 Albumin 3.2 L Lipase 69 L Urine Color Urine Appearance Urine pH Ur Specific [place] Urine Protein Urine Glucose (UA) Urine Ketones Urine Blood Urine Nitrite Urine Bilirubin Urine Urobilinogen Ur Leukocyte Esterase Acetone, Qual Negative L 04/26/18 04/26/18 04/26/18 03:18 03:18 04:38 WBC RBC Hgb Hct MCV MCH MCHC RDW Plt Count MPV Absolute Neuts (auto) Neutrophils % Lymphocytes % Monocytes % Eosinophils % Basophils % Nucleated RBC % Sodium Potassium Chloride Carbon Dioxide Anion Gap BUN Creatinine Creat Clearance w eGFR Random Glucose Calcium Phosphorus 3.3 Magnesium 1.9 Total Bilirubin AST ALT Alkaline Phosphatase Creatine Kinase Troponin I Total Protein Albumin Lipase Urine Color Straw Urine Appearance Clear Urine pH 7.0 Ur Specific [place] 1.020 Urine Protein Negative Urine Glucose (UA) 3+ H Urine Ketones Negative Urine Blood Negative Urine Nitrite Negative Urine Bilirubin Negative Urine Urobilinogen Negative Ur Leukocyte Esterase Negative Acetone, Qual Home Medications Medication Instructions Recorded Hypromellose 0.5% Opth Soln 1 - 2 drop OS DAILY #1 dropsbtl 12/04/17 [Artificial Tears] Atorvastatin Calcium [Lipitor] 10 mg HS 04/26/18 Montelukast Na [Singulair -] 10 mg PO HS 04/26/18 Polyethylene Glycol 3350 [Miralax 17 gm PO DAILY 04/26/18 (For Daily Use) -] Sennosides [Senna] 17.2 mg PO DAILY 04/26/18 ASSESSMENT AND PLAN: This is a 52 year old woman with a history of HTN, hyperlipidemia, asthma, type 1 DM, H. pylori who presented to the ED with abdominal pain, nausea, and vomiting, and was found to have duodenitis on CT. 1. Duodenitis with intractable nausea, vomiting - Blood may be secondary to Vivi-Clemente tear - NPO - IV fluid - Protonix - Monitor hgb - GI consult - will need EGD to evaluate for causes of duodenitis 2. Type 1 DM - Decrease long acting insulin while NPO - Fingersticks with Novolog sliding scale 3. Hyperlipidemia - Continue Lipitor 4. Asthma - Stable - Continue Singulair
[2018-04-26] MEDS ORDERED: PANTOPRAZOLE SODIUM 40 MG VIAL IVPUSH SCH (10:00)
[2018-04-26] MEDS ORDERED: PANTOPRAZOLE SODIUM 40 MG/100 ML BAG IVPB ONE (10:32)
[2018-04-26] MEDS: INSULIN SLIDING SCALE (NOVOLOG) 1 VIAL SQ SCH ×3 (11:07→22:51)
--- NOTE | 2018-04-26 11:46 | EKG ---
Test Reason : Blood Pressure : / mmHG Vent. Rate : 071 BPM Atrial Rate : 071 BPM P-R Int : 142 ms QRS Dur : 084 ms QT Int : 378 ms P-R-T Axes : 060 059 058 degrees QTc Int : 410 ms NORMAL SINUS RHYTHM NONSPECIFIC T WAVE ABNORMALITY ABNORMAL ECG WHEN COMPARED WITH ECG OF 16-AUG-2017 20:13, NO SIGNIFICANT CHANGE WAS FOUND Confirmed by Jose Enrique Springer MD ([id number]) on 04/26/2018 11:46:10 AM Referred By: Confirmed By:Jose Enrique Springer MD
[2018-04-26] MEDS: INSULIN (LEVEMIR) 100 UNITS/ML UNITS SQ SCH ×2 (11:51→22:50)
[2018-04-26] MEDS ORDERED: diphenhydrAMINE HCL 25 MG CAPSULE (FP) PO ONE ×2 (14:53→15:00)
[2018-04-26] MEDS ORDERED: PANTOPRAZOLE 40 MG TABLET (FP) PO SCH (18:45)
--- NOTE | 2018-04-26 18:58 | CON.GI ---
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 She received IV fluids, PPI, and Reglan which provided complete relief of her symptoms. - Alcohol/Substance Use Hx Alcohol Use: No - Smoking History Smoking history: Never smoked Have you smoked in the past 12 months: No Aproximately how many cigarettes per day: 0 If you are a former smoker, when did you quit?: 6 months ago Home Medications - Allergies Allergies/Adverse Reactions: Allergies Allergy/AdvReac Type Severity Reaction Status Date / Time No Known Allergies Allergy Verified 04/26/18 02:03 - Home Medications Home Medications: Ambulatory Orders Hypromellose 0.5% Opth Soln [Artificial Tears] 1 - 2 drop OS DAILY #1 dropsbtl 12/04/17 Atorvastatin Calcium [Lipitor] 10 mg HS 04/26/18 Insulin Aspart [Novolog] 30 unit SQ AC 04/26/18 Insulin Glargine,Hum.rec.anlog [Basaglar Kwikpen U-100] 40 unit SQ BID 04/26/18 Montelukast Na [Singulair -] 10 mg PO HS 04/26/18 Polyethylene Glycol 3350 [Miralax (For Daily Use) -] 17 gm PO DAILY 04/26/18 Sennosides [Senna] 17.2 mg PO DAILY 04/26/18 Physical Exam-GI Vital Signs: Vital Signs Temperature 98.6 F 04/26/18 18:00 Pulse Rate 69 04/26/18 18:00 Respiratory Rate 18 04/26/18 18:00 Blood Pressure 139/77 04/26/18 18:00 O2 Sat by Pulse Oximetry (%) 100 04/26/18 14:32 Constitutional: Yes: Well Nourished Eyes: Yes: Conjunctiva Clear HENT: Yes: Atraumatic Neck: Yes: Supple Cardiovascular: Yes: Regular Rate and Rhythm Respiratory: Yes: CTA Bilaterally ...Palpate: Yes: Soft. No: Firm/Rigid, Guarding, Hepatomegaly, Mass, Pulsatile Mass, Splenomegaly, Tenderness, Tenderness, Epigastium Labs: CBC, BMP 04/26/18 03:18 04/26/18 03:18 Problem List - Problems (1) Intractable vomiting Assessment/Plan: possibly MW tear R> Protonix 40mg bid for 1 week then daily Reglan 5mg 30 min ac made aware to follow for outpatient EGD advance diet as tolerated. Code(s): R11.10 - VOMITING, UNSPECIFIED
[2018-04-26 20:56] VITALS: BMI 20.1
[2018-04-26] MEDS: METOCLOPRAMIDE HCL 10 MG TABLET (FP) PO SCH (22:50)
[2018-04-27] MEDS: LACTATED RINGERS SOLUTION 1,000 ML/1,000 ML INFUS.BAG IV SCH ×3 (02:57→14:57)
[2018-04-27 06:11] LABS: HEMATOCRIT 31.3 % (32.4-45.2); HEMOGLOBIN 10.4 GM/dL (10.7-15.3); MCH 28.6 pg (25.7-33.7); MCHC 33.2 g/dl (32.0-36.0); MEAN CELL VOLUME 86.1 fl (80-96); MEAN PLT VOLUME 7.5 fl (7.5-11.1); PLATELET COUNT 318 K/MM3 (134-434); RBC 3.64 M/mm3 (3.60-5.2); WHITE BLOOD COUNT 7.8 K/mm3 (4.0-10.0)
[2018-04-27] MEDS: METOCLOPRAMIDE HCL 10 MG TABLET (FP) PO SCH ×3 (06:36→17:51)
[2018-04-27 06:41] LABS: ALBUMIN 2.8 g/dl (3.4-5.0); ALK PHOS 190 U/L (45-117); ANION GAP 5 MMOL/L (8-16); BILIRUBIN,TOTAL 0.2 mg/dL (0.2-1); BLOOD UREA NITROGEN 5 mg/dL (7-18); CALCIUM 8.6 mg/dL (8.5-10.1); CHLORIDE 105 mmol/L (98-107); CO2 29 mmol/L (21-32); CREATININE 0.5 mg/dL (0.55-1.3); GLUCOSE,RANDOM 201 mg/dL (74-106); PHOSPHOROUS 4.2 mg/dL (2.5-4.9); POTASSIUM 4.4 mmol/L (3.5-5.1); SGOT/AST 181 U/L (15-37); SGPT/ALT 94 U/L (13-61); SODIUM 139 mmol/L (136-145); TOT PROT 6.1 g/dl (6.4-8.2)
[2018-04-27] MEDS: INSULIN SLIDING SCALE (NOVOLOG) 1 VIAL SQ SCH ×5 (06:41→22:05)
[2018-04-27] MEDS: INSULIN (LEVEMIR) 100 UNITS/ML UNITS SQ SCH ×2 (06:41→22:06)
[2018-04-27] MEDS: PANTOPRAZOLE 40 MG TABLET (FP) PO SCH ×2 (10:08→22:05)
[2018-04-27 10:39] LABS: INR 1.14 (0.83-1.09); PROTHROMBIN TIME (PATIENT) 13.5 SEC (9.7-13.0)
[2018-04-27] MEDS: POLYETHYLENE GLYCOL 3350 119 GM BTL PO SCH ×2 (14:51→22:06)
[2018-04-27] MEDS: SENNOSIDES 8.6MG TABLET (FP) PO SCH ×2 (14:52→22:05)
--- NOTE | 2018-04-27 15:00 | PN ---
Physical Exam: SUBJECTIVE: Patient seen and examined this AM. She says that she still has some abdominal pain in the LLQ and also states she has not had a bowel movement in 4 days. Events noted overnight as per nursing pt refused protonix and reglan. OBJECTIVE: Vital Signs Period Temp Pulse Resp BP Sys/Regalado Pulse Ox Last 24 Hr 98.4 F-98.6 F 61-69 18-18 121-139/73-78 100 GENERAL: A&O, no acute distress HEAD: Normocephalic, atraumatic. EYES: PERRL, no scleral icterus EARS, NOSE, THROAT: oropharynx clear without exudates. Moist mucous membranes. NECK: supple without lymphadenopathy LUNGS: CTA b/l, no crackles or wheezes HEART: Regular rate and rhythm, normal S1 and S2 without murmur ABDOMEN: Soft, tender to palpation in LLQ, normoactive bowel sounds MUSCULOSKELETAL: No bony deformities or tenderness. EXTREMITIES: 2+ pulses, warm, well-perfused. No peripheral edema. NEUROLOGICAL: Cranial nerves II-XII grossly intact. Normal speech. PSYCHIATRIC: Cooperative. Good eye contact. Appropriate mood and affect. Laboratory Results - last 24 hr 04/26/18 04/26/18 04/27/18 16:52 22:46 03:21 WBC RBC Hgb Hct MCV MCH MCHC RDW Plt Count MPV PT with INR INR Sodium Potassium Chloride Carbon Dioxide Anion Gap BUN Creatinine Creat Clearance w eGFR POC Glucometer 99.92059 236 71 Random Glucose Calcium Phosphorus Magnesium Total Bilirubin AST ALT Alkaline Phosphatase Total Protein Albumin 04/27/18 04/27/18 04/27/18 03:38 06:00 06:00 WBC 7.8 RBC 3.64 Hgb 10.4 L Hct 31.3 L MCV 86.1 MCH 28.6 MCHC 33.2 RDW 13.0 Plt Count 318 MPV 7.5 PT with INR INR Sodium 139 Potassium 4.4 Chloride 105 Carbon Dioxide 29 Anion Gap 5 L BUN 5 L Creatinine 0.5 L Creat Clearance w eGFR > 60 POC Glucometer 93 Random Glucose 201 H Calcium 8.6 Phosphorus 4.2 Magnesium 2.0 Total Bilirubin 0.2 AST 181 H ALT 94 H Alkaline Phosphatase 190 H Total Protein 6.1 L Albumin 2.8 L 04/27/18 04/27/18 04/27/18 06:38 09:20 11:18 WBC RBC Hgb Hct MCV MCH MCHC RDW Plt Count MPV PT with INR 13.50 H INR 1.14 H Sodium Potassium Chloride Carbon Dioxide Anion Gap BUN Creatinine Creat Clearance w eGFR POC Glucometer 269 103 Random Glucose Calcium Phosphorus Magnesium Total Bilirubin AST ALT Alkaline Phosphatase Total Protein Albumin Active Medications Generic Name Dose Route Start Last Admin Trade Name Freq PRN Reason Stop Dose Admin Lactated Ringer's 1,000 ml in 1,000 mls @ 100 mls/hr 04/26/18 08:30 04/27/18 14:57 Lactated Ringers Solution IV 100 mls/hr ASDIR DARON Administration Insulin Aspart 1 vial 04/26/18 11:00 04/27/18 14:02 Novolog Vial Sliding Scale - SQ Not Given ACHS [facility] Protocol Insulin Detemir 20 units 04/26/18 11:30 04/27/18 06:41 Levemir Vial SQ 20 units BID@0700,2200 DARON Administration Metoclopramide HCl 5 mg 04/26/18 18:45 04/27/18 10:08 Reglan - PO 5 mg TIDAC DARON Administration Ondansetron HCl 4 mg 04/26/18 08:27 Zofran Injection IVPUSH Q4H PRN NAUSEA AND/OR VOMITING Pantoprazole Sodium 40 mg 04/27/18 10:00 04/27/18 10:08 Protonix - PO Not Given BID [facility] Polyethylene Glycol 17 gm 04/27/18 11:00 04/27/18 14:51 Miralax (For Daily Use) - PO 17 grams BID DARON Administration Senna 1 tab 04/27/18 11:00 04/27/18 14:52 Senna - PO 1 tab BID DARON Administration ASSESSMENT/PLAN: 52yo F with history of IDDM, HTN, previous H. Pylori infection multiple years ago, admitted for abdominal pain, nausea, and vomiting, likely duodenitis. Duodenitis with possible gastric paresis vs H. pylori -Pt pain and nausea greatly improved, refused reglan and protonix overnight -Requesting full diet, advanced to diabetic diet -Protonix 40 mg PO BID -Reglan 5 mg PO TIDAC -GI consult appreciated - outpatient f/u for EGD Transaminitis -RUQ US noted: no gall stones, possible fatty liver infiltrate -Trend LFTs -Hepatitis panel IDDM -Glargine 40 mg BID and Levemir 30 AC, as per pt and pharmacy on admission -Levemir 20 units BID, consider advancing to 40 as pt tolerates full diet Chronic Constipation -Pt with LLQ abdominal pain without bm in 4 days -CT scan noted with stool -Myralax and Senna -Bladder scan for possible retention, 25 cc's DVT Prophylaxis -SCDs FEN -Fluids: LR @ 100 cc/hr -Electrolytes: No electrolyte abnormalities, BMP in AM -Nutrition: Diabetic Diet Disposition Med/Surg Visit type - Emergency Visit Emergency Visit: Yes ED Registration Date: 04/26/18 Care time: The patient presented to the Emergency Department on the above date and was hospitalized for further evaluation of their emergent condition. - New Patient This patient is new to me today: Yes Date on this admission: 04/27/18 - Critical Care Critical Care patient: No
--- NOTE | 2018-04-27 15:15 | PN ---
Teaching Attending Note Name of Resident: Erlin Watkins ATTENDING PHYSICIAN STATEMENT I saw and evaluated the patient. I reviewed the resident's note and discussed the case with the resident. I agree with the resident's findings and plan as documented with exceptions below. SUBJECTIVE: patient seen and examined, some nausea, no further vomitting. reports some lower abdominal pain, no urinary symptoms. OBJECTIVE: Vital Signs Period Temp Pulse Resp BP Sys/Regalado Pulse Ox Last 24 Hr 98.4 F-98.6 F 61-69 -18 121-139/73-78 100 Intake & Output 04/24/18 04/25/18 04/26/18 04/27/18 23:59 23:59 23:59 23:59 Intake Total 550 900 Balance 550 900 Weight 121 lb 4 oz General: sitting in bed in no acute distress Abdomen:soft mild LLQ tenderness, no epigasric/upper quadrant tenderness,no voluntary or involuntary guarding or rigidity, positive bowel sounds, no CVA tenderness Chest: CTAB, no rales or wheezing Extremities: no edema Active Medications Lactated Ringer's (Lactated Ringers Solution) 1,000 ml in 1,000 mls @ 100 mls/ hr IV ASDIR [facility] Last Admin: 04/27/18 14:57 Dose: 100 mls/hr Insulin Aspart (Novolog Vial Sliding Scale -) 1 vial SQ [facility]; Protocol Last Admin: 04/27/18 14:02 Dose: Not Given Insulin Detemir (Levemir Vial) 20 units SQ BID@0700,2200 [facility] Last Admin: 04/27/18 06:41 Dose: 20 units Metoclopramide HCl (Reglan -) 5 mg PO TIDAC [facility] Last Admin: 04/27/18 10:08 Dose: 5 mg Ondansetron HCl (Zofran Injection) 4 mg IVPUSH Q4H PRN PRN Reason: NAUSEA AND/OR VOMITING Pantoprazole Sodium (Protonix -) 40 mg PO BID [facility] Last Admin: 04/27/18 10:08 Dose: Not Given Polyethylene Glycol (Miralax (For Daily Use) -) 17 gm PO BID [facility] Last Admin: 04/27/18 14:51 Dose: 17 grams Senna (Senna -) 1 tab PO BID [facility] Last Admin: 04/27/18 14:52 Dose: 1 tab Laboratory Results - last 24 hr 04/26/18 04/26/18 04/27/18 16:52 22:46 03:21 WBC RBC Hgb Hct MCV MCH MCHC RDW Plt Count MPV PT with INR INR Sodium Potassium Chloride Carbon Dioxide Anion Gap BUN Creatinine Creat Clearance w eGFR POC Glucometer 99.19145 236 71 Random Glucose Calcium Phosphorus Magnesium Total Bilirubin AST ALT Alkaline Phosphatase Total Protein Albumin 04/27/18 04/27/18 04/27/18 03:38 06:00 06:00 WBC 7.8 RBC 3.64 Hgb 10.4 L Hct 31.3 L MCV 86.1 MCH 28.6 MCHC 33.2 RDW 13.0 Plt Count 318 MPV 7.5 PT with INR INR Sodium 139 Potassium 4.4 Chloride 105 Carbon Dioxide 29 Anion Gap 5 L BUN 5 L Creatinine 0.5 L Creat Clearance w eGFR > 60 POC Glucometer 93 Random Glucose 201 H Calcium 8.6 Phosphorus 4.2 Magnesium 2.0 Total Bilirubin 0.2 AST 181 H ALT 94 H Alkaline Phosphatase 190 H Total Protein 6.1 L Albumin 2.8 L 04/27/18 04/27/18 04/27/18 06:38 09:20 11:18 WBC RBC Hgb Hct MCV MCH MCHC RDW Plt Count MPV PT with INR 13.50 H INR 1.14 H Sodium Potassium Chloride Carbon Dioxide Anion Gap BUN Creatinine Creat Clearance w eGFR POC Glucometer 269 103 Random Glucose Calcium Phosphorus Magnesium Total Bilirubin AST ALT Alkaline Phosphatase Total Protein Albumin Abdominal US - no gallstone, fatty liver ASSESSMENT AND PLAN: 52 yof with IDDM, Rondon's esophagus, ?h pylori infection admitted with vomiting, transient bloody vomitus and abdominal pain. -VOmitting/abdominal pain, ?gastroparesis, vs gastritis/duodenitis/PUD, r/o H.pylori infection -Transient hemetemesis,likely anton weston tear, resolved -Abnormal LFTs, ?etiology, ?hepatic steatosis, medication related -Constipation -Fibroid Plan: GI input noted. Protonix 40 mg BID, reglan AC outpatient follow up for EGD. Advance diet. Abdominal US noted, check hep panel. Trend LFts. Aggressive bowel regimen. Bladder scan x 1. levemir 20 units BID, ISs, titrate once po intake improved. DVTPPX with SCDs dispo pending clinical improvement. Plan discussed with patient in detail,all questions answered.
--- NOTE | 2018-04-27 15:24 | PN ---
Progress Note (short form) - Note Progress Note: patient noted to have mildly elevated LFTS mostlikely secondaryt ot statin use R> decrease statin to every other day further w/u as an outpatient Problem List - Problems (1) Intractable vomiting Code(s): R11.10 - VOMITING, UNSPECIFIED
[2018-04-27] MEDS ORDERED: diphenhydrAMINE HCL 25 MG CAPSULE (FP) PO ONE (19:34)
[2018-04-27] MEDS ORDERED: INSULIN (NOVOLOG) ASPART 100 UNITS/ML 10ML VIAL ONE (21:16)
[2018-04-28] MEDS ORDERED: IBUPROFEN 400 MG TABLET (FP) PO ONE (03:06)
[2018-04-28] MEDS: LACTATED RINGERS SOLUTION 1,000 ML/1,000 ML INFUS.BAG IV SCH ×2 (03:10→10:18)
[2018-04-28] MEDS: INSULIN SLIDING SCALE (NOVOLOG) 1 VIAL SQ SCH ×2 (06:49→12:07)
[2018-04-28] MEDS: INSULIN (LEVEMIR) 100 UNITS/ML UNITS SQ SCH (06:49)
[2018-04-28] MEDS: METOCLOPRAMIDE HCL 10 MG TABLET (FP) PO SCH ×2 (06:49→12:04)
[2018-04-28 07:38] LABS: ALBUMIN 2.8 g/dl (3.4-5.0); ALK PHOS 188 U/L (45-117); ANION GAP 5 MMOL/L (8-16); BILIRUBIN,TOTAL 0.2 mg/dL (0.2-1); BLOOD UREA NITROGEN 15 mg/dL (7-18); CALCIUM 9.2 mg/dL (8.5-10.1); CHLORIDE 101 mmol/L (98-107); CO2 32 mmol/L (21-32); CREATININE 0.6 mg/dL (0.55-1.3); GLUCOSE,RANDOM 179 mg/dL (74-106); MAGNESIUM 2.1 mg/dL (1.8-2.4); PHOSPHOROUS 4.9 mg/dL (2.5-4.9); POTASSIUM 4.5 mmol/L (3.5-5.1); SGOT/AST 45 U/L (15-37); SGPT/ALT 69 U/L (13-61); SODIUM 137 mmol/L (136-145); TOT PROT 6.5 g/dl (6.4-8.2)
--- NOTE | 2018-04-28 08:29 | PN ---
Teaching Attending Note Name of Resident: Erlin Watkins ATTENDING PHYSICIAN STATEMENT I saw and evaluated the patient. I reviewed the resident's note and discussed the case with the resident. I agree with the resident's findings and plan as documented with exceptions below. SUBJECTIVE: Patient seen and examined. no further nausea/vomiting/bleeding or abdominal pain. had a BM this AM OBJECTIVE: Vital Signs Period Temp Pulse Resp BP Sys/Regalado Pulse Ox Last 24 Hr 97.9 F-98.7 F 62-75 18-20 117-156/61-87 99-100 Intake & Output 04/25/18 04/26/18 04/27/18 04/28/18 23:59 23:59 23:59 23:59 Intake Total 550 2000 700 Balance 550 2000 700 Weight 121 lb 4 oz General: lying in bed in no acute distress Abdomen: soft, NT throughout, ND Active Medications Lactated Ringer's (Lactated Ringers Solution) 1,000 ml in 1,000 mls @ 100 mls/ hr IV ASDIR [facility] Last Admin: 04/28/18 03:10 Dose: 100 mls/hr Insulin Aspart (Novolog Vial Sliding Scale -) 1 vial SQ [facility]; Protocol Last Admin: 04/28/18 06:49 Dose: 4 units Insulin Detemir (Levemir Vial) 20 units SQ BID@0700,2200 [facility] Last Admin: 04/28/18 06:49 Dose: 20 units Metoclopramide HCl (Reglan -) 5 mg PO TIDAC [facility] Last Admin: 04/28/18 06:49 Dose: 5 mg Ondansetron HCl (Zofran Injection) 4 mg IVPUSH Q4H PRN PRN Reason: NAUSEA AND/OR VOMITING Pantoprazole Sodium (Protonix -) 40 mg PO BID [facility] Last Admin: 04/27/18 22:05 Dose: 40 mg Polyethylene Glycol (Miralax (For Daily Use) -) 17 gm PO BID [facility] Last Admin: 04/27/18 22:06 Dose: 17 grams Senna (Senna -) 1 tab PO BID [facility] Last Admin: 04/27/18 22:05 Dose: 1 tab Sodium Phosphate (Fleet Adult Rectal Enema -) 133 ml AL ONCE ONE Stop: 04/28/18 08:51 Laboratory Results - last 24 hr 04/27/18 04/27/18 04/27/18 09:20 11:18 16:52 PT with INR 13.50 H INR 1.14 H Sodium Potassium Chloride Carbon Dioxide Anion Gap BUN Creatinine Creat Clearance w eGFR POC Glucometer 103 143 Random Glucose Calcium Phosphorus Magnesium Total Bilirubin AST ALT Alkaline Phosphatase Total Protein Albumin 04/28/18 04/28/18 04/28/18 03:22 06:15 06:24 PT with INR INR Sodium 137 Potassium 4.5 Chloride 101 Carbon Dioxide 32 Anion Gap 5 L BUN 15 Creatinine 0.6 Creat Clearance w eGFR > 60 POC Glucometer 79 185 Random Glucose 179 H Calcium 9.2 Phosphorus 4.9 Magnesium 2.1 Total Bilirubin 0.2 AST 45 H ALT 69 H Alkaline Phosphatase 188 H Total Protein 6.5 Albumin 2.8 L 04/28/18 08:20 PT with INR INR Sodium Potassium Chloride Carbon Dioxide Anion Gap BUN Creatinine Creat Clearance w eGFR POC Glucometer 78 Random Glucose Calcium Phosphorus Magnesium Total Bilirubin AST ALT Alkaline Phosphatase Total Protein Albumin ASSESSMENT AND PLAN: 52 yof with IDDM, Rondon's esophagus, ?h pylori infection admitted with vomiting, transient bloody vomitus and abdominal pain. -Vomitting/abdominal pain, ?gastroparesis, vs gastritis/duodenitis/PUD, r/o H.pylori infection -Transient hemetemesis,likely anton weston tear, resolved -Abnormal LFTs, ?etiology, ?hepatic steatosis, vs statin induced vs from vomitting -Constipation -Fibroid Plan: GI input noted. Protonix 40 mg BID, reglan AC outpatient follow up for EGD. Tolerating diet. LFts improved,Abdominal US noted. Hep panel pending. Change statin to every other day. Bladder scan with no evidence of retention. Resume home insulin on dc Hep panel/h pylori ag pending Above dc instructions, pending labs, need for outpatient follow up for LFTs/EGD and change in statin dosing to every other day discussed in detail with patient. She relays full understanding and agrees to comply. DVTPPX with SCDs dispo d/c home with outpatient GI follow up and LFTs monitoring. Plan discussed with patient in detail,all questions answered.
[2018-04-28] MEDS ORDERED: SODIUM PHOSPHATE/NA BIPHOS 133 ML ENEMA PR ONE (09:15)
[2018-04-28] MEDS: POLYETHYLENE GLYCOL 3350 119 GM BTL PO SCH (10:17)
[2018-04-28] MEDS: PANTOPRAZOLE 40 MG TABLET (FP) PO SCH (10:18)
[2018-04-28] MEDS: SENNOSIDES 8.6MG TABLET (FP) PO SCH (10:18)
[2018-04-28] MEDS ORDERED: INSULIN SLIDING SCALE (NOVOLOG) 1 VIAL SQ SCH ×2 (11:49→11:50)
--- NOTE | 2018-04-28 12:32 | DS ---
Physical Exam: SUBJECTIVE: Patient seen and examined this AM. She says she is feeling much better and her pain is resolved. OBJECTIVE: Vital Signs Period Temp Pulse Resp BP Sys/Regalado Pulse Ox Last 24 Hr 97.8 F-98.7 F 64-75 20-20 115-156/61-87 99 PHYSICAL EXAM GENERAL: A&O, no acute distress HEAD: Normocephalic, atraumatic. EYES: PERRL, no scleral icterus EARS, NOSE, THROAT: oropharynx clear without exudates. Moist mucous membranes. NECK: supple without lymphadenopathy LUNGS: CTA b/l, no crackles or wheezes HEART: Regular rate and rhythm, normal S1 and S2 without murmur ABDOMEN: Soft, nontender to palpation, normoactive bowel sounds MUSCULOSKELETAL: No bony deformities or tenderness. EXTREMITIES: 2+ pulses, warm, well-perfused. No peripheral edema. NEUROLOGICAL: Cranial nerves II-XII grossly intact. Normal speech. PSYCHIATRIC: Cooperative. Good eye contact. Appropriate mood and affect. LABS Laboratory Results - last 24 hr 04/27/18 04/27/18 04/28/18 16:52 21:58 03:22 Sodium Potassium Chloride Carbon Dioxide Anion Gap BUN Creatinine Creat Clearance w eGFR POC Glucometer 143 441 79 Random Glucose Calcium Phosphorus Magnesium Total Bilirubin AST ALT Alkaline Phosphatase Total Protein Albumin 04/28/18 04/28/18 04/28/18 06:15 06:24 08:20 Sodium 137 Potassium 4.5 Chloride 101 Carbon Dioxide 32 Anion Gap 5 L BUN 15 Creatinine 0.6 Creat Clearance w eGFR > 60 POC Glucometer 185 78 Random Glucose 179 H Calcium 9.2 Phosphorus 4.9 Magnesium 2.1 Total Bilirubin 0.2 AST 45 H ALT 69 H Alkaline Phosphatase 188 H Total Protein 6.5 Albumin 2.8 L 04/28/18 04/28/18 08:52 11:41 Sodium Potassium Chloride Carbon Dioxide Anion Gap BUN Creatinine Creat Clearance w eGFR POC Glucometer 141 176 Random Glucose Calcium Phosphorus Magnesium Total Bilirubin AST ALT Alkaline Phosphatase Total Protein Albumin IMAGING: CT Abdomen/Pelvis: Questionable wall thickness of gastric antrum wall and duodenum, r/o gastritis, r/o duodenitis Abdomen US: Mild fatty infiltration of the liver HOSPITAL COURSE: Date of Admission:04/26/18 Date of Discharge: 04/28/18 52yo F with history of DM1, HTN, previous H. Pylori infection multiple years ago who presents with nause, nonbilious vomiting and abdominal pain. With translation by her daughter, pt reports her nausea and vomiting starting about a month ago, however she came today to the ER because she started to see streaks of blood in her emesis. She reports seeing a garde manger in [facility] who she follows with. Her last endoscopy was around 8 years ago and last colonscopy was around 6 years ago without any notable findings (per pt). Her last BM was around 2-3 days ago which was normal in caliber and quality, however she admits to using Miralax and Senna regularly due to constipation. Currently her abdominal pain as resolved, however upon admission she reports the pain was mostly LUQ without any particular radiation which gets better when eating food. Pt was seen by GI who recommended EGD as an outpatient. She had continued constipation and was given a fleet enema. As her pain and nausea had resolved, and she was tolerating PO intake well, she was deemed medically safe for discharge with follow up by GI. She was discharged with scripts for Protonix 40 mg PO BID, Reglan 5 mg PO TIDAC, Senna, Colace, and Myralax. Minutes to complete discharge: 40 Discharge Summary Reason For Visit: NAUSEA AND VOMITING/DUODENITIS Current Active Problems Diabetes (Chronic) Duodenitis (Chronic) Condition: Good - Instructions Diet, Activity, Other Instructions: You were admitted to the hospital with abdominal pain, nausea, and vomiting. You were found to have duodenitis, which is inflammation of a section of your intestine. The exact cause of the inflammation is unknown, however at this time your symptoms have resolved. You were seen by a GI doctor who recommended an EGD (a camera through your mouth and into your digestive tract) as an outpatient after you are discharged from the hospital for further evaluation. Of note, you were also having constipation for which you were given Myralax, Senna, and a fleet enema. At this time you are medically safe for discharge. You should begin taking Protonix 40 mg by mouth twice daily, one pill in the morning and one at night for 2 weeks. Your doctor may choose to continue this longer than 2 weeks. You should take Reglan 5 mg by mouth three times per day 30 minutes before meals for 2 weeks. Your doctor may also wish to continue this for longer. You should take Senna 1 tablet in the morning and one at night. You should take Colace 1 tablet daily. You can take Miralax up to 3 times daily as needed if you are still not having bowel movements. You should otherwise continue all of your home medications as they are prescribed to you prior to your admission to the hospital. Following blood work was sent results of which are pending: Transglutaminase A H. pylori antigen Hepatitis panel Please have your doctor follow up on the results in 1 week. You liver test were abnormal and will need close monitoring. Please take your atorvastatin every other day till seen by your doctor. Do not take tylenol or any OTC medications without discussion with your doctor. Following blood work in 1 week: LFT (liver function test) DIETARY CHANGES: Small meals at frequent intervals Do not eat for 2 hours before going to bed Avoid motrin or any other NSAIDs Try to keep head end of bed elevated Avoid alcohol/spicy foods. Continue insulin as before and advise blood sugar checks before meals and at bedtime till next doctor visit. Maintain a diary and notify your doctor if < 75 or persistently > 200 noted. You should follow up with your primary care physician within one week of discharge from the hospital. You should follow up with your GI doctor within one week to set up an EGD ( Endoscopy). The information for the GI doctor that saw you in the hospital has been provided in the discharge packet. If you have severe worsening of your abdominal pain, bloody or dark vomiting, or any bloody or abnormally dark stools, you should call your doctor or return to the emergency department for evaluation. Referrals: Darío Davalos MD [Staff Physician] - Disposition: HOME - Home Medications Comprehensive Discharge Medication List: Ambulatory Orders Hypromellose 0.5% Opth Soln [Artificial Tears] 1 - 2 drop OS DAILY #1 dropsbtl 12/04/17 Atorvastatin Calcium [Lipitor] 10 mg HS 04/26/18 Insulin Aspart [Novolog Flexpen] 30 unit SQ AC 04/26/18 Insulin Glargine,Hum.rec.anlog [Basaglar Kwikpen U-100] 40 unit SQ BID 04/26/18 Montelukast Na [Singulair -] 10 mg PO HS 04/26/18 Polyethylene Glycol 3350 [Miralax 119 gm Btl -] 17 gm PO DAILY 04/26/18 Docusate Sodium [Colace -] 100 mg PO DAILY #30 capsule 04/28/18 Metoclopramide HCl [Reglan -] 5 mg PO TIDAC #45 tablet 04/28/18 Pantoprazole Sodium [Protonix -] 40 mg PO BID #28 tablet.ec 04/28/18 Sennosides [Senna -] 1 tab PO BID #60 tablet 04/28/18 This patient is new to me today: No Emergency Visit: Yes ED Registration Date: 04/26/18 Care time: The patient presented to the Emergency Department on the above date and was hospitalized for further evaluation of their emergent condition. Critical Care patient: No - Discharge Referral Referred to [facility] Med P.C.: No
[2018-04-28 13:50] VITALS: BP 141/81; PULSE 69; TEMP 97.9
[2018-04-29 06:05] LABS: HEP.C VIRUS AB <0.1 s/co ratio (0.0-0.9)
== END 2018-04-28 13:50 | disposition home or self-care (01) | DRG 391 ==
LOC: JER 01:49 → JERBED 08:24 → J7W 19:51
PROVIDERS: ADMIT Internal Medicine; ATTEND Hospitalist
DX: K29.80 Duodenitis without bleeding (principal); K22.6 Gastro-esophageal laceration-hemorrhage syndrome; K22.70 Barrett's esophagus without dysplasia; I10 Essential (primary) hypertension; E78.00 Pure hypercholesterolemia, unspecified; Z79.4 Long term (current) use of insulin; E10.43 Type 1 diabetes mellitus with diabetic autonomic (poly)neuropathy; K31.84 Gastroparesis; J45.909 Unspecified asthma, uncomplicated; E78.5 Hyperlipidemia, unspecified; Z87.891 Personal history of nicotine dependence; R74.0 Nonspecific elevation of levels of transaminase and lactic acid dehydrogenase [LDH]; K59.09 Other constipation; D25.9 Leiomyoma of uterus, unspecified; R94.5 Abnormal results of liver function studies
CPT/HCPCS: 36415; 74177-TC; 76700-TC; 80053; 80074; 81003; 82009; 82550; 82962; 83516; 83690; 83735; 84100; 84484; 85025; 85027; 85610; 87338; 93005; 93010; 99284-25; J0131; J7030

== ENCOUNTER 2018-08-29 16:44 | Observation (INO) | payer OTHER ==
[2018-08-29 17:12] VITALS: BMI 25.6
--- NOTE | 2018-08-29 17:23 | PDOC ---
History of Present Illness - General Chief Complaint: Chest Pain Stated Complaint: CHEST PAIN Time Seen by Provider: 08/29/18 17:00 - History of Present Illness Initial Comments: 08/29/18 17:33 The patient is a 53 year old female with a PMH of IDDM, Depression, HLD presents to our ED c/o acute onset of chest pain. Pain is stabbing, L sided and sometimes radiates to her back and down her L arm. Onset @ 10:30 a.m. this morning while she was laying in bed. Worse with breathing and laying supine. Measured her blood glucose was in the 600's, so patient took 80 units of insulin and did not recheck her sugar. As her chest pain persisted she decided to come to the ED. Notes a 2-3 week h/o daily NBNB emesis, weakness. Recent evaluation by her PMD in 07/2018, was called and told there was an abnormal lab value and she needed to make a follow-up appointment which she has scheduled for later this week. Patient states her most recent HbA1c was 13 and states she measures her BS at home and they are usually 400-500's. H/o of previous cardiac evaluation for possible arrhythmia. Notes a 30 pound weight loss since March 2018. NKDA Surgical: C/S x2, Hysterectomy PMD: Dr. Freed ([facility]) Social: former smoker (1 ppd) quit two years previous, denies other toxic habits As per EMR patient previously evaluated for chest pain in our ED in 07/2017. Troponin (-) x1, was discharged home with supportive care and follow-up with PMD. Past History - Past Medical History Allergies/Adverse Reactions: Allergies Allergy/AdvReac Type Severity Reaction Status Date / Time No Known Allergies Allergy Verified 04/26/18 02:03 Home Medications: Ambulatory Orders Insulin Glargine,Hum.rec.anlog [Basaglar Kwikpen U-100] 40 unit SQ BID 04/26/18 Acetaminophen 325 mg PO PRN PRN 08/29/18 Aspirin [Aspirin EC] 81 mg PO DAILY 08/29/18 Atorvastatin Ca [Lipitor] 40 mg PO HS 08/29/18 Baclofen 10 mg PO BID 08/29/18 Diphenhydramine HCl 25 mg PO PRN PRN 08/29/18 Esomeprazole Magnesium 20 mg PO DAILY 08/29/18 Loratadine 10 mg PO DAILY 08/29/18 Metoclopramide HCl 5 mg PO AC 08/29/18 Mirtazapine 15 mg PO HS 08/29/18 Montelukast Sodium [Singulair] 10 mg PO DAILY 08/29/18 traZODone HCL [Trazodone HCl] 150 mg PO HS 08/29/18 Asthma: Yes COPD: No Diabetes: Yes GI Disorders: Yes (chronic constipation) HTN: No Hypercholesterolemia: Yes Psychiatric Problems: Yes - Surgical History Appendectomy: Yes - Immunization History Immunization Up to Date: Yes - Suicide/Smoking/Psychosocial Hx Smoking Status: No Smoking History: Never smoked Have you smoked in the past 12 months: No Number of Cigarettes Smoked Daily: 0 If you are a former smoker, when did you quit?: 6 months ago Information on smoking cessation initiated: No Hx Alcohol Use: No Drug/Substance Use Hx: No Hx Substance Use Treatment: No Review of Systems - Review of Systems Constitutional: No: Chills, Fever HEENTM: No: Recent change in vision, Throat Pain Respiratory: Yes: Cough. No: Shortness of Breath, Wheezing, Hemoptysis Cardiac (ROS): Yes: Chest Pain. No: Lightheadedness, Palpitations, Syncope ABD/GI: No: Constipated, Diarrhea, Nausea, Vomiting *Physical Exam - Vital Signs Last Vital Signs Temp Pulse Resp BP Pulse Ox 97.6 F 78 16 109/76 100 08/29/18 16:50 08/29/18 16:50 08/29/18 16:50 08/29/18 16:50 08/29/18 16:50 - Physical Exam General Appearance: Yes: Nourished, Thin HEENT: positive: Normal Voice, Hearing Grossly Normal Neck: positive: Trachea midline, Supple Respiratory/Chest: positive: Lungs Clear, Normal Breath Sounds. negative: Labored Respiration, Rapid RR Cardiovascular: positive: S1, S2. negative: Edema, JVD Vascular Pulses: Dorsalis-Pedis (R): 2+, Doralis-Pedis (L): 2+ Gastrointestinal/Abdominal: positive: Normal Bowel Sounds, Soft Musculoskeletal: negative: CVA Tenderness (R), CVA Tenderness (L) Extremity: positive: Normal Capillary Refill, Normal Inspection Integumentary: positive: Normal Color, Dry, Warm Neurologic: positive: Fully Oriented, Alert Moderate Sedation - Procedure Monitoring Vital Signs: Procedure Monitoring Vital Signs Temperature 97.6 F 08/29/18 16:50 Pulse Rate 78 08/29/18 16:50 Respiratory Rate 16 08/29/18 16:50 Blood Pressure 109/76 08/29/18 16:50 O2 Sat by Pulse Oximetry (%) 100 08/29/18 16:50 Heart Score/ECG Review - ECG Impressions Comment:: 08/29/18 17:28 EKG showing HR 81, MS 140, QRS 88, [id number], and normal axis with PVCs. ED Treatment Course - LABORATORY CBC & Chemistry Diagram: 08/30/18 07:43 08/30/18 07:43 Medical Decision Making - Medical Decision Making 08/29/18 18:45 53 year old female with pleuritic chest pain. VS unremarkable. DDx: includes r /o PE, r/o ACS, pericarditis, PNA, costochondritis, as well as DKA, HHONK, consider malignancy. Will obtain basic labs,D-dimer, VBG, Serum Acetone, CXR, Troponin x1. 1 L IV NS pending K+, patient possibly requires additional insulin. Fingerstick pending. Heart Score 4, moreover patient MMP with additional RF of poorly controlled IDDM, h/o limited cardiac evaluation. Likely disposition is admission. 08/29/18 19:00 My read of CXR shows no consolidation/infiltrate, clear costophrenic angles. Repeat FS 393 - will continue IV fluids, withold insulin at this time Labs including VBG, Serum Acetone, K+, D-dimer. Patient to be signed out to Dr. Carrillo (Resident) and Dr. Flaherty (Attending) with plan for stabilization and admission. 08/30/18 12:48 *DC/Admit/Observation/Transfer Diagnosis at time of Disposition: Chest pain Qualifiers: Chest pain type: unspecified Qualified Code(s): R07.9 - Chest pain, unspecified - Discharge Dispostion Condition at time of disposition: Fair - Referrals Referrals: ON STAFF,NOT [Primary Care Provider] - - Patient Instructions - Post Discharge Activity
[2018-08-29] MEDS ORDERED: SODIUM CHLORIDE 0.9% 500 ML INFUS.BAG IV ONE ×2 (18:16→19:35)
[2018-08-29] MEDS ORDERED: ACETAMINOPHEN 1000 MG/100 ML VIAL (NON FORMULARY) IVPB ONE (18:30)
[2018-08-29] MEDS ORDERED: ACETAMINOPHEN INJECTION 100 ML IVPB ONE (18:38)
[2018-08-29 18:39] LABS: BASO % 0.3 % (0-2.0); EOS % 6.1 % (0-4.5); HEMATOCRIT 33.5 % (32.4-45.2); HEMOGLOBIN 11.6 GM/dL (10.7-15.3); LYMPH % 26.9 % (8-40); MCH 30.5 pg (25.7-33.7); MCHC 34.7 g/dl (32.0-36.0); MEAN CELL VOLUME 88.1 fl (80-96); MEAN PLT VOLUME 8.1 fl (7.5-11.1); MONO % 10.8 % (3.8-10.2); NEUT % 55.9 % (42.8-82.8); PLATELET COUNT 381 K/MM3 (134-434); RBC 3.81 M/mm3 (3.60-5.2); RDW 12.7 % (11.6-15.6); WHITE BLOOD COUNT 7.5 K/mm3 (4.0-10.0)
[2018-08-29 18:40] LABS: VENOUS PC02 58.6 mmHg (38-52); VENOUS PH 7.35 (7.32-7.42); VENOUS PO2 24.6 mmHg (28-48)
--- NOTE | 2018-08-29 18:46 | PDOC ---
Attending Attestation - Resident Resident Name: Ayanna Avalos - ED Attending Attestation I have performed the following: I have examined & evaluated the patient, The case was reviewed & discussed with the resident, I agree w/resident's findings & plan, Exceptions are as noted - HPI HPI: 08/29/18 18:40 The patient is a 53 year old female with a PMH of IDDM, Depression, HLD who presents to the ER with chest pain today. Patient describes the chest pain as stabbing in nature, left sided, with associated left arm pain that worsens with coughing and deep inspiration. Endorses SOB. Pt denies any leg swelling. No recent travel/immobilization. Patient also reports vomiting daily for the past 3 weeks and has had 30 lbs weight loss over the past 5 months. Denies diarrhea. Denies abdominal pain. She notes that her sugars have been running very high as well. She states that they are usually 400-500. Today, her sugar was 600. She gave herself 80u insulin and came to ED. Patient was seen by her PCP in July and was told to follow up this week for abnormal blood work, but pt does not know what was abnormal. Allergies: NKA Past surgical history: None reported. Social history: No reported alcohol, drug or cigarette use. - Physicial Exam PE: 08/29/18 18:46 GENERAL: Awake, alert, and fully oriented, in no acute distress. HEAD: No signs of trauma EYES: PERRLA, EOMI, sclera anicteric, conjunctiva clear ENT: Auricles normal inspection, hearing grossly normal, nares patent, oropharynx clear without exudates. Moist mucosa NECK: Nontender, no stepoffs, Normal ROM, supple, no lymphadenopathy, JVD, or masses LUNGS: Breath sounds equal, clear to auscultation bilaterally. No wheezes, and no crackles HEART: Regular rate and rhythm, normal S1 and S2, no murmurs, rubs or gallops ABDOMEN: Soft, nontender, normoactive bowel sounds. No guarding, no rebound. No masses EXTREMITIES: Normal range of motion, no edema. No clubbing or cyanosis. No cords, erythema, or tenderness NEUROLOGICAL: Cranial nerves II through XII intact. 5/5 strength and sensation in all extremities, Normal speech, normal gait, normal cerebellar function SKIN: Warm, Dry, normal turgor, no rashes or lesions noted. - Medical Decision Making 08/29/18 18:46 53 F with pleuritic chest pain and SOB. Etiology unclear. Pain is very atypical for ACS but will obtain serial trops. Pt with no cough or fevers to suggest infectious process. Will r/o PE with ddimer. Pt also with elevated sugars and vomiting. Will need to evaluate for DKA. - Labs, acetone, trop, ddimer - CXR - IVF, tylenol - CTA chest if indicated
[2018-08-29 19:11] LABS: ALBUMIN 3.2 g/dl (3.4-5.0); ALK PHOS 203 U/L (45-117); ANION GAP 7 MMOL/L (8-16); BILIRUBIN,TOTAL 0.2 mg/dL (0.2-1); BLOOD UREA NITROGEN 17 mg/dL (7-18); CALCIUM 9.2 mg/dL (8.5-10.1); CHLORIDE 97 mmol/L (98-107); CO2 30 mmol/L (21-32); CREATININE 0.8 mg/dL (0.55-1.3); SGOT/AST 26 U/L (15-37); SGPT/ALT 46 U/L (13-61); SODIUM 134 mmol/L (136-145); TOT PROT 6.9 g/dl (6.4-8.2)
[2018-08-29 19:12] LABS: GLUCOSE,RANDOM 371 mg/dL (74-106)
--- NOTE | 2018-08-29 21:17 | PDOC ---
*Physical Exam - Vital Signs Last Vital Signs Temp Pulse Resp BP Pulse Ox 97.6 F 78 16 109/76 100 08/29/18 16:50 08/29/18 16:50 08/29/18 16:50 08/29/18 16:50 08/29/18 16:50 Heart Score/ECG Review - History History: Moderately suspicious - Electrocardiogram EKG: Non specific repolarization disturbance - Age Age: 45-65 - Risk Factors Risk Factors Heart Score: Yes Hx Hypercholesterolemia, Yes Hx Diabetes Based on the list above the patient has:: 1-2 risk factors - Troponin Troponin: </= normal limit - Score Heart Score - Total: 4 ED Treatment Course - LABORATORY CBC & Chemistry Diagram: 08/29/18 18:04 08/29/18 18:04 - ADDITIONAL ORDERS Additional order review: Laboratory Results 08/29/18 08/29/18 08/29/18 18:30 18:09 18:08 D-Dimer 230 VBG pH 7.35 POC VBG pCO2 58.6 H POC VBG pO2 24.6 L Mixed VBG HCO3 31.6 H Sodium Potassium Chloride Carbon Dioxide Anion Gap BUN Creatinine Creat Clearance w eGFR POC Glucometer Random Glucose Calcium Total Bilirubin AST ALT Alkaline Phosphatase Creatine Kinase Troponin I B-Natriuretic Peptide Total Protein Albumin Acetone, Qual Negative L 08/29/18 08/29/18 08/29/18 18:04 18:02 17:22 D-Dimer VBG pH POC VBG pCO2 POC VBG pO2 Mixed VBG HCO3 Sodium 134 L Potassium 5.0 Chloride 97 L Carbon Dioxide 30 Anion Gap 7 L BUN 17 Creatinine 0.8 Creat Clearance w eGFR > 60 POC Glucometer 393 Random Glucose 371 H* Calcium 9.2 Total Bilirubin 0.2 AST 26 ALT 46 Alkaline Phosphatase 203 H Creatine Kinase 52 Troponin I < 0.02 B-Natriuretic Peptide 21.3 Total Protein 6.9 Albumin 3.2 L Acetone, Qual 08/29/18 08/29/18 18:04 18:02 RBC 3.81 MCV 88.1 MCHC 34.7 RDW 12.7 MPV 8.1 Neutrophils % 55.9 D Lymphocytes % 26.9 D Monocytes % 10.8 H Eosinophils % 6.1 H D Basophils % 0.3 POC Glucometer 393 - Medications Given in the ED: ED Medications Discontinued Medications Generic Name Dose Route Start Last Admin Trade Name Freq PRN Reason Stop Dose Admin Acetaminophen 1,000 mg 08/29/18 18:30 08/29/18 18:58 Ofirmev Injection - IVPB 08/29/18 18:31 1,000 mg ONCE ONE Administration Sodium Chloride 1,000 ml 08/29/18 18:16 08/29/18 18:58 Normal Saline - IV 08/29/18 18:17 1,000 ml ONCE ONE Administration Sodium Chloride 1,000 ml 08/29/18 19:35 08/29/18 20:47 Normal Saline - IV 08/29/18 19:36 1,000 ml ONCE ONE Administration Medical Decision Making - Medical Decision Making 53 year old with chest pain and HS of 4. EKG showing rate 81, OK 140, QRS 88, [id number], and normal axis with PVCs. Spoke to Jesus Manuel and she wants to consult Dr. Mcfarlane as well. 08/29/18 21:12 *DC/Admit/Observation/Transfer Diagnosis at time of Disposition: Chest pain Qualifiers: Chest pain type: unspecified Qualified Code(s): R07.9 - Chest pain, unspecified - Discharge Dispostion Condition at time of disposition: Fair Decision to Admit order: Yes Decision to Admit order Date/Time: Decision to Admit Order Category Date Time Status Decision to Admit to Hospital Routine Admission 08/29/18 21:06 Ordered - Referrals Referrals: ON STAFF,NOT [Primary Care Provider] - - Patient Instructions - Post Discharge Activity
[2018-08-29] MEDS ORDERED: ASPIRIN 81 MG CHEWABLE TABLETS PO ONE (21:53)
--- NOTE | 2018-08-29 22:49 | HP ---
Admitting History and Physical - Primary Care Physician PCP: Carmen Ken - Admission Chief Complaint: chest pain History of Present Illness: 53 year old female with a PMH of IDDM, Depression, HLD presents to our ED c/o acute onset of chest pain. Pain is stabbing, L sided and sometimes radiates to her back and down her arm and started around 10:30 a.m. this morning while she was laying in bed. Worse with breathing and laying supine. Measured her blood glucose was in the 600's, so patient took 80 units of insulin and did not recheck her sugar. As her chest pain persisted she decided to come to the ED. Notes a 2-3 week h/o daily NBNB emesis, weakness. Recent evaluation by her PMD in 07/2018, was called and told there was an abnormal lab value and she needed to make a follow-up appointment which she has scheduled for later this week. At that time patient states her HbA1c was 13 and states she measures her BS at home and they are usually 400-500's. H/o of previous cardiac evaluation for possible arrhythmia. Notes a 30 pound weight loss since March 2018. - Past Medical History Cardiovascular: Yes: Hyperlipdemia Endocrine: Yes: Diabetes Mellitus - Smoking History Smoking history: Never smoked Have you smoked in the past 12 months: No Aproximately how many cigarettes per day: 0 If you are a former smoker, when did you quit?: 6 months ago - Alcohol/Substance Use Hx Alcohol Use: No Home Medications - Allergies Allergies/Adverse Reactions: Allergies Allergy/AdvReac Type Severity Reaction Status Date / Time No Known Allergies Allergy Verified 04/26/18 02:03 - Home Medications Home Medications: Ambulatory Orders Insulin Glargine,Hum.rec.anlog [Basaglar Kwikpen U-100] 40 unit SQ BID 04/26/18 Acetaminophen 325 mg PO PRN PRN 08/29/18 Aspirin [Aspirin EC] 81 mg PO DAILY 08/29/18 Atorvastatin Ca [Lipitor] 40 mg PO HS 08/29/18 Baclofen 10 mg PO BID 08/29/18 Diphenhydramine HCl 25 mg PO PRN PRN 08/29/18 Esomeprazole Magnesium 20 mg PO DAILY 08/29/18 Loratadine 10 mg PO DAILY 08/29/18 Metoclopramide HCl 5 mg PO AC 08/29/18 Mirtazapine 15 mg PO HS 08/29/18 Montelukast Sodium [Singulair] 10 mg PO DAILY 08/29/18 traZODone HCL [Trazodone HCl] 150 mg PO HS 08/29/18 Physical Examination Vital Signs: Vital Signs Temperature 97.6 F 08/29/18 16:50 Pulse Rate 78 08/29/18 16:50 Respiratory Rate 16 08/29/18 16:50 Blood Pressure 109/76 08/29/18 16:50 O2 Sat by Pulse Oximetry (%) 100 08/29/18 16:50 Constitutional: Yes: No Distress HENT: Yes: Atraumatic Neck: Yes: Supple Cardiovascular: Yes: Regular Rate and Rhythm Respiratory: Yes: CTA Bilaterally Gastrointestinal: Yes: Normal Bowel Sounds Extremities: Yes: WNL Edema: No Peripheral Pulses WNL: Yes Neurological: Yes: Alert, Oriented Labs: CBC, BMP 08/29/18 18:04 08/29/18 18:04 Imaging - Results X-ray: Report Reviewed Problem List - Problems (1) HLD (hyperlipidemia) Assessment/Plan: on meds Code(s): E78.5 - HYPERLIPIDEMIA, UNSPECIFIED (2) Chest pain Assessment/Plan: tele monitoring fu cardiac profile cardiology consult Code(s): R07.9 - CHEST PAIN, UNSPECIFIED Qualifiers: Chest pain type: unspecified Qualified Code(s): R07.9 - Chest pain, unspecified (3) Diabetes Assessment/Plan: on insulin bgms Code(s): E11.9 - TYPE 2 DIABETES MELLITUS WITHOUT COMPLICATIONS Assessment/Plan Laboratory Results - last 24 hr 08/29/18 08/29/18 08/29/18 17:22 18:02 18:04 WBC 7.5 RBC 3.81 Hgb 11.6 Hct 33.5 MCV 88.1 MCH 30.5 MCHC 34.7 RDW 12.7 Plt Count 381 MPV 8.1 Absolute Neuts (auto) 4.2 Neutrophils % 55.9 D Lymphocytes % 26.9 D Monocytes % 10.8 H Eosinophils % 6.1 H D Basophils % 0.3 Nucleated RBC % 0 D-Dimer VBG pH POC VBG pCO2 POC VBG pO2 Mixed VBG HCO3 Sodium Potassium Chloride Carbon Dioxide Anion Gap BUN Creatinine Creat Clearance w eGFR POC Glucometer 393 Random Glucose Calcium Total Bilirubin AST ALT Alkaline Phosphatase Creatine Kinase Troponin I B-Natriuretic Peptide 21.3 Total Protein Albumin Acetone, Qual 08/29/18 08/29/18 08/29/18 18:04 18:08 18:09 WBC RBC Hgb Hct MCV MCH MCHC RDW Plt Count MPV Absolute Neuts (auto) Neutrophils % Lymphocytes % Monocytes % Eosinophils % Basophils % Nucleated RBC % D-Dimer VBG pH 7.35 POC VBG pCO2 58.6 H POC VBG pO2 24.6 L Mixed VBG HCO3 31.6 H Sodium 134 L Potassium 5.0 Chloride 97 L Carbon Dioxide 30 Anion Gap 7 L BUN 17 Creatinine 0.8 Creat Clearance w eGFR > 60 POC Glucometer Random Glucose 371 H* Calcium 9.2 Total Bilirubin 0.2 AST 26 ALT 46 Alkaline Phosphatase 203 H Creatine Kinase 52 Troponin I < 0.02 B-Natriuretic Peptide Total Protein 6.9 Albumin 3.2 L Acetone, Qual Negative L 08/29/18 08/29/18 18:30 22:08 WBC RBC Hgb Hct MCV MCH MCHC RDW Plt Count MPV Absolute Neuts (auto) Neutrophils % Lymphocytes % Monocytes % Eosinophils % Basophils % Nucleated RBC % D-Dimer 230 VBG pH POC VBG pCO2 POC VBG pO2 Mixed VBG HCO3 Sodium Potassium Chloride Carbon Dioxide Anion Gap BUN Creatinine Creat Clearance w eGFR POC Glucometer 292 Random Glucose Calcium Total Bilirubin AST ALT Alkaline Phosphatase Creatine Kinase Troponin I B-Natriuretic Peptide Total Protein Albumin Acetone, Qual Active Medications Generic Name Dose Route Start Last Admin Trade Name Freq PRN Reason Stop Dose Admin Atorvastatin Calcium 10 mg 08/30/18 22:00 08/29/18 23:40 Lipitor - PO 10 mg Q2D@2200 DARON Administration Insulin Aspart 30 units 08/30/18 07:00 08/30/18 11:07 Novolog Vial SQ Not Given TIDAC DARON Insulin Aspart 1 vial 08/30/18 07:00 08/30/18 11:06 Novolog Vial Sliding Scale - SQ 6 units ACHS DARON Administration Protocol Montelukast Sodium 10 mg 08/30/18 22:00 Singulair - PO HS DARON Pantoprazole Sodium 40 mg 08/30/18 10:00 08/30/18 10:40 Protonix - PO 40 mg BID DARON Administration Polyethylene Glycol 17 gm 08/30/18 10:00 08/30/18 10:40 Miralax (For Daily Use) - PO 17 grams DAILY DARON Administration Senna 1 tab 08/30/18 10:00 08/30/18 10:41 Senna - PO Not Given BID DARON
[2018-08-29] MEDS ORDERED: ATORVASTATIN CA 10 MG TABLET (FP) ONE (23:38)
[2018-08-30 08:20] LABS: BASO % 0.3 % (0-2.0); EOS % 6.6 % (0-4.5); HEMATOCRIT 31.1 % (32.4-45.2); HEMOGLOBIN 11.1 GM/dL (10.7-15.3); LYMPH % 34.9 % (8-40); MCH 31.5 pg (25.7-33.7); MCHC 35.8 g/dl (32.0-36.0); MONO % 10.4 % (3.8-10.2); NEUT % 47.8 % (42.8-82.8); PLATELET COUNT 363 K/MM3 (134-434); RBC 3.53 M/mm3 (3.60-5.2); RDW 12.7 % (11.6-15.6); WHITE BLOOD COUNT 6.9 K/mm3 (4.0-10.0)
[2018-08-30 08:27] LABS: ANION GAP 3 MMOL/L (8-16); BLOOD UREA NITROGEN 13 mg/dL (7-18); CALCIUM 8.3 mg/dL (8.5-10.1); CHLORIDE 104 mmol/L (98-107); CO2 32 mmol/L (21-32); CREATININE 0.5 mg/dL (0.55-1.3); GLUCOSE,RANDOM 95 mg/dL (74-106); POTASSIUM 4.2 mmol/L (3.5-5.1); SODIUM 138 mmol/L (136-145)
[2018-08-30] MEDS: INSULIN SLIDING SCALE (NOVOLOG) 1 VIAL SQ SCH ×2 (09:10→11:06)
[2018-08-30] MEDS: INSULIN (NOVOLOG) ASPART 100 UNITS/ML 10ML VIAL SQ SCH ×2 (09:10→11:07)
[2018-08-30] MEDS ORDERED: POLYETHYLENE GLYCOL 3350 119 GM BTL PO SCH (10:00)
[2018-08-30] MEDS ORDERED: PANTOPRAZOLE 40 MG TABLET (FP) PO SCH (10:00)
[2018-08-30] MEDS ORDERED: SENNOSIDES 8.6MG TABLET (FP) PO SCH (10:00)
[2018-08-30] MEDS ORDERED: PANTOPRAZOLE 40 MG TABLET (FP) ONE ×2 (10:39→10:57)
--- NOTE | 2018-08-30 15:03 | PN ---
Progress Note, Physician History of Present Illness: feeling good no chest pain - Current Medication List Current Medications: Active Medications Atorvastatin Calcium (Lipitor -) 10 mg PO Q2D@2200 [facility] Last Admin: 08/29/18 23:40 Dose: 10 mg Insulin Aspart (Novolog Vial) 30 units SQ TIDAC [facility] Last Admin: 08/30/18 11:07 Dose: Not Given Insulin Aspart (Novolog Vial Sliding Scale -) 1 vial SQ ACHS [facility]; Protocol Last Admin: 08/30/18 11:06 Dose: 6 units Montelukast Sodium (Singulair -) 10 mg PO [facility] Pantoprazole Sodium (Protonix -) 40 mg PO BID [facility] Last Admin: 08/30/18 10:40 Dose: 40 mg Polyethylene Glycol (Miralax (For Daily Use) -) 17 gm PO DAILY [facility] Last Admin: 08/30/18 10:40 Dose: 17 grams Senna (Senna -) 1 tab PO BID [facility] Last Admin: 08/30/18 10:41 Dose: Not Given - Objective Vital Signs: Vital Signs Temperature 98.2 F 08/30/18 09:00 Pulse Rate 72 08/30/18 09:00 Respiratory Rate 22 H 08/30/18 09:00 Blood Pressure 114/78 08/30/18 09:00 O2 Sat by Pulse Oximetry (%) 98 08/30/18 09:00 Constitutional: Yes: No Distress HENT: Yes: Atraumatic Neck: Yes: Supple Cardiovascular: Yes: Regular Rate and Rhythm Respiratory: Yes: CTA Bilaterally Gastrointestinal: Yes: Normal Bowel Sounds Extremities: Yes: WNL Edema: No Peripheral Pulses WNL: Yes Neurological: Yes: Alert, Oriented Labs: CBC, BMP 08/30/18 07:43 08/30/18 07:43 Problem List - Problems (1) HLD (hyperlipidemia) Assessment/Plan: on meds Code(s): E78.5 - HYPERLIPIDEMIA, UNSPECIFIED (2) Chest pain Assessment/Plan: tele monitoring fu cardiac profile...troponins negative cardiology consult..awaiting Code(s): R07.9 - CHEST PAIN, UNSPECIFIED Qualifiers: Chest pain type: unspecified Qualified Code(s): R07.9 - Chest pain, unspecified (3) Diabetes Assessment/Plan: on insulin bgms Code(s): E11.9 - TYPE 2 DIABETES MELLITUS WITHOUT COMPLICATIONS
[2018-08-30 15:38] VITALS: BP 111/74; PULSE 74; TEMP 98.8
--- NOTE | 2018-08-30 15:38 | ECHO ---
Name: MARLEE DE LEON Exam:Adult Echocardiogram Study Date: 08/30/2018 10:36 AM Age: 53 yrs Reason For Study: Chest pain Height: 62 in Weight: 140 lb BSA: 1.6 m2 MMode/2D Measurements & Calculations IVSd: 1.3 cm Ao root diam: 2.9 cm LVIDd: 4.0 cm LA dimension: 2.5 cm LVIDs: 2.1 cm LVPWd: 0.87 cm EDV(Teich): 69.1 ml LAV (MOD-bp): 59.1 ml ESV(Teich): 14.5 ml Doppler Measurements & Calculations MV E max kalani: 86.3 cm/sec MV A max kalani: 84.9 cm/sec MV dec slope: 709.7 cm/sec2 MV E/A: 1.0 MV dec time: 0.10 sec TR max kalani: 245.7 cm/sec Med Peak E' Kalani: 8.3 cm/sec TR max P.1 mmHg Med E/e': 10.4 Lat Peak E' Kalani: 9.8 cm/sec Lat E/e': 8.8 PI Vmax: 182.6 cm/sec Procedure A complete two-dimensional transthoracic echocardiogram was performed (2D, M-mode, Doppler and color flow Doppler). The study was technically good with many images being of high quality. Left Ventricle The left ventricle is normal in size. Left ventricular systolic function is normal. Left Ventricular Filling pattern is normal for age. No regional wall motion abnormalities noted. Right Ventricle The right ventricle is normal size. The right ventricular systolic function is normal. Atria The left atrial size is normal. Right atrial size is normal. Mitral Valve The mitral valve is normal in structure and function. There is no mitral regurgitation noted. Tricuspid Valve The tricuspid valve is normal in structure and function. No tricuspid regurgitation. There was insuff icient TR detected to calculate RV systolic pressure. Aortic Valve The aortic valve is normal in structure and function. No aortic regurgitation is present. Pulmonic Valve The pulmonic valve is not well visualized. Great Vessels The aortic root is normal size. Pericardium/Pleura There is no pericardial effusion. Interpretation Summary This was essentially a normal study. Dhruv Sue 08/30/2018 03:37 PM
--- NOTE | 2018-08-30 16:31 | EKG ---
Test Reason : Blood Pressure : / mmHG Vent. Rate : 081 BPM Atrial Rate : 081 BPM P-R Int : 140 ms QRS Dur : 088 ms QT Int : 358 ms P-R-T Axes : 049 061 069 degrees QTc Int : 415 ms NORMAL SINUS RHYTHM POSSIBLE LEFT ATRIAL ENLARGEMENT NONSPECIFIC T WAVE ABNORMALITY ABNORMAL ECG WHEN COMPARED WITH ECG OF 26-APR-2018 03:32, NO SIGNIFICANT CHANGE WAS FOUND Confirmed by Dhruv Sue ([id number]) on 08/30/2018 4:30:59 PM Referred By: Confirmed By:Dhruv Sue
[2018-08-30] MEDS ORDERED: ATORVASTATIN CA 10 MG TABLET (FP) PO SCH (22:00)
[2018-08-30] MEDS ORDERED: MONTELUKAST NA 10 MG TABLET PO SCH (22:00)
--- NOTE | 2018-08-31 16:43 | DS ---
Physical Examination Vital Signs: Vital Signs Temperature 98.8 F 08/30/18 12:30 Pulse Rate 74 08/30/18 12:30 Respiratory Rate 18 08/30/18 12:30 Blood Pressure 111/74 08/30/18 12:30 O2 Sat by Pulse Oximetry (%) 99 08/30/18 12:30 Labs: CBC, BMP 08/30/18 07:43 08/30/18 07:43 Discharge Summary Reason For Visit: CHEST PAIN Condition: Fair - Instructions Referrals: ON STAFF,NOT [Primary Care Provider] - Disposition: AGAINST MEDICAL ADVICE - Home Medications Comprehensive Discharge Medication List: Ambulatory Orders Insulin Glargine,Hum.rec.anlog [Basaglar Kwikpen U-100] 40 unit SQ BID 04/26/18 Acetaminophen 325 mg PO PRN PRN 08/29/18 Aspirin [Aspirin EC] 81 mg PO DAILY 08/29/18 Atorvastatin Ca [Lipitor] 40 mg PO HS 08/29/18 Baclofen 10 mg PO BID 08/29/18 Diphenhydramine HCl 25 mg PO PRN PRN 08/29/18 Esomeprazole Magnesium 20 mg PO DAILY 08/29/18 Loratadine 10 mg PO DAILY 08/29/18 Metoclopramide HCl 5 mg PO AC 08/29/18 Mirtazapine 15 mg PO HS 08/29/18 Montelukast Sodium [Singulair] 10 mg PO DAILY 08/29/18 traZODone HCL [Trazodone HCl] 150 mg PO HS 08/29/18 AMA
== END 2018-08-30 16:20 | disposition left against medical advice (07) ==
LOC: JER 16:44 → JERBED 21:06
PROVIDERS: ADMIT Internal Medicine; ATTEND Internal Medicine
PROC: 3E033NZ Introduction of Analgesics, Hypnotics, Sedatives into Peripheral Vein, Percutaneous Approach (ICD-10-PCS; principal; 2018-08-29)
PROC: 3E0337Z Introduction of Electrolytic and Water Balance Substance into Peripheral Vein, Percutaneous Approach (ICD-10-PCS; 2018-08-29)
PROC: 3E013VG Introduction of Insulin into Subcutaneous Tissue, Percutaneous Approach (ICD-10-PCS; 2018-08-29)
DX: R07.9 Chest pain, unspecified (principal); E11.9 Type 2 diabetes mellitus without complications; E78.5 Hyperlipidemia, unspecified; F32.9 Major depressive disorder, single episode, unspecified; J45.909 Unspecified asthma, uncomplicated; Z79.82 Long term (current) use of aspirin; Z79.4 Long term (current) use of insulin; Z90.710 Acquired absence of both cervix and uterus
CPT/HCPCS: 36415; 71045-TC-FY; 80048; 80053; 82009; 82550; 82803; 82962; 83880; 84484; 85025; 85379; 93005; 93010; 93306-TC; 96372; 96374; 99285-25; G0378; J0131

== ENCOUNTER 2020-08-08 22:15 | Inpatient (IN) | payer OTHER ==
[2020-08-08] MEDS ORDERED: ONDANSETRON 4 MG/2 ML VIAL IVPUSH ONE (22:24)
[2020-08-08] MEDS ORDERED: PANTOPRAZOLE SODIUM 40 MG VIAL IVPUSH ONE (22:24)
[2020-08-08] MEDS ORDERED: SODIUM CHLORIDE 1,000 ML IV SCH (22:30)
[2020-08-08] MEDS ORDERED: ONDANSETRON 4 MG/2 ML VIAL ONE ×2 (22:41→22:46)
[2020-08-08] MEDS ORDERED: PANTOPRAZOLE SODIUM 40 MG VIAL ONE (22:46)
[2020-08-08] MEDS ORDERED: ACETAMINOPHEN 1000 MG/100 ML VIAL (NON FORMULARY) IVPB ONE (22:54)
[2020-08-08 22:55] LABS: BASO % 0.6 % (0-2.0); EOS % 0.1 % (0-4.5); HEMATOCRIT 34.7 % (32.4-45.2); HEMOGLOBIN 10.7 GM/dL (10.7-15.3); MCH 29.2 pg (25.7-33.7); MCHC 30.9 g/dl (32.0-36.0); MEAN CELL VOLUME 94.4 fl (80-96); MEAN PLT VOLUME 8.3 fl (7.5-11.1); MONO % 5.7 % (3.8-10.2); NEUT % 86.6 % (42.8-82.8); PLATELET COUNT 609 K/MM3 (134-434); RBC 3.68 M/mm3 (3.60-5.2); RDW 13.8 % (11.6-15.6); WHITE BLOOD COUNT 19.7 K/mm3 (4.0-10.0)
[2020-08-08 22:56] LABS: VENOUS BASE EXCESS -22.2 mmol/L (-2-2); VENOUS O2 SATURATION 81.3 % (70-80); VENOUS PCO2 21.8 mmHg (38-52)
[2020-08-08] MEDS ORDERED: ACETAMINOPHEN INJECTION 100 ML IVPB ONE (22:59)
[2020-08-08 23:03] LABS: INR 1.07 (0.83-1.09); PROTHROMBIN TIME (PATIENT) 12.9 SEC (9.7-13.0)
[2020-08-08 23:16] LABS: CHLORIDE 90 mmol/L (98-107); POTASSIUM 5.3 mmol/L (3.5-5.1); SODIUM 131 mmol/L (136-145)
[2020-08-08 23:18] LABS: ALBUMIN 3.3 g/dl (3.4-5.0); ANION GAP 33 MMOL/L (8-16); CALCIUM 9.6 mg/dL (8.5-10.1); CO2 8 mmol/L (21-32)
[2020-08-08 23:19] LABS: BLOOD UREA NITROGEN 41.1 mg/dL (7-18); MAGNESIUM 3.8 mg/dL (1.8-2.4)
[2020-08-08 23:21] LABS: SGPT/ALT 17 U/L (13-61)
[2020-08-08 23:22] LABS: SGOT/AST 8 U/L (15-37)
[2020-08-08 23:23] LABS: BILIRUBIN,TOTAL 0.5 mg/dL (0.2-1); PHOSPHOROUS 8.3 mg/dL (2.5-4.9); TOT PROT 7.3 g/dl (6.4-8.2)
[2020-08-08 23:24] LABS: ALK PHOS 153 U/L (45-117)
[2020-08-08] MEDS ORDERED: INSULIN REGULAR HUMAN 100 UNITS/ML *VIAL* (FOR IVP) IVPUSH ONE (23:29)
[2020-08-08] MEDS ORDERED: INSULIN REGULAR 100 UNITS in SODIUM CHLORIDE 99 ML IVPB SCH (23:30)
[2020-08-08] MEDS ORDERED: INSULIN REGULAR HUMAN 100 UNITS/ML *VIAL ONE (23:32)
[2020-08-08] MEDS ORDERED: LACTATED RINGERS SOLUTION 1000 ML INFUS.BAG IV ONE (23:32)
[2020-08-08 23:34] LABS: VENOUS PH 7.072 (7.310-7.410)
[2020-08-08 23:39] LABS: ANISOCYTOSIS 0; MACROCYTOSIS 0; PLATELET ESTIMATE INCREASED; TARGET CELLS 1+
[2020-08-08 23:46] LABS: GLUCOSE,RANDOM 797 mg/dL (74-106)
[2020-08-09] MEDS ORDERED: HEPARIN NA (PORCINE) 5,000 UNITS/ML 1ML VIAL IVPUSH ONE (01:34)
[2020-08-09] MEDS ORDERED: LACTATED RINGERS SOLUTION 1,000 ML/1,000 ML INFUS.BAG IV SCH (01:45)
[2020-08-09] MEDS ORDERED: ONDANSETRON 4 MG/2 ML VIAL IVPUSH ONE (02:42)
[2020-08-09] MEDS ORDERED: HEPARIN NA (PORCINE) 5,000 UNITS/ML 1ML VIAL SQ ONE (02:50)
[2020-08-09] MEDS ORDERED: MUPIROCIN 2% TOPICAL OINTMENT FOR DECOLONIZATION NS SCH ×2 (10:00→22:00)
[2020-08-09 10:12] LABS: BASO % 0.4 % (0-2.0); HEMATOCRIT 28.3 % (32.4-45.2); HEMOGLOBIN 9.6 GM/dL (10.7-15.3); LYMPH % 7.5 % (8-40); MCH 29.5 pg (25.7-33.7); MEAN CELL VOLUME 86.7 fl (80-96); MEAN PLT VOLUME 7.8 fl (7.5-11.1); MONO % 11.3 % (3.8-10.2); NEUT % 80.8 % (42.8-82.8); PLATELET COUNT 458 K/MM3 (134-434); RBC 3.27 M/mm3 (3.60-5.2); RDW 12.9 % (11.6-15.6); WHITE BLOOD COUNT 19.1 K/mm3 (4.0-10.0)
[2020-08-09 10:37] LABS: CALCIUM 8.7 mg/dL (8.5-10.1)
[2020-08-09 10:38] LABS: ALBUMIN 2.6 g/dl (3.4-5.0); BLOOD UREA NITROGEN 32.8 mg/dL (7-18); MAGNESIUM 3.7 mg/dL (1.8-2.4)
[2020-08-09 10:41] LABS: CREATININE 1.5 mg/dL (0.55-1.3); PHOSPHOROUS 1.8 mg/dL (2.5-4.9)
[2020-08-09 10:42] LABS: BILIRUBIN,TOTAL 0.3 mg/dL (0.2-1); TOT PROT 6.1 g/dl (6.4-8.2)
[2020-08-09] MEDS ORDERED: DEXTROSE 5%-LACTATED RINGERS 1,000 ML IV SCH (10:45)
[2020-08-09] MEDS ORDERED: INSULIN (LEVEMIR) 100 UNITS/ML UNITS SQ SCH (11:00)
[2020-08-09] MEDS: INSULIN SLIDING SCALE (NOVOLOG) 1 VIAL SQ SCH ×3 (12:20→21:16)
[2020-08-09 12:46] LABS: HEMATOCRIT 28.7 % (32.4-45.2); HEMOGLOBIN 9.5 GM/dL (10.7-15.3); MCH 28.7 pg (25.7-33.7); MCHC 33.2 g/dl (32.0-36.0); MEAN PLT VOLUME 7.6 fl (7.5-11.1); PLATELET COUNT 495 K/MM3 (134-434); RBC 3.32 M/mm3 (3.60-5.2); RDW 12.9 % (11.6-15.6); WHITE BLOOD COUNT 19.3 K/mm3 (4.0-10.0)
[2020-08-09 13:19] LABS: MEAN CELL VOLUME 86.4 fl (80-96)
[2020-08-09 13:20] LABS: BLOOD UREA NITROGEN 30.3 mg/dL (7-18); CALCIUM 8.8 mg/dL (8.5-10.1)
[2020-08-09 13:23] LABS: CREATININE 1.3 mg/dL (0.55-1.3)
[2020-08-09] MEDS: HEPARIN NA (PORCINE) 5,000 UNITS/ML 1ML VIAL SQ SCH ×2 (15:24→21:14)
[2020-08-09] MEDS ORDERED: SODIUM CHLORIDE 1,000 ML IV SCH (16:15)
[2020-08-09 17:21] LABS: POTASSIUM 4.6 mmol/L (3.5-5.1)
[2020-08-09 17:22] LABS: BLOOD UREA NITROGEN 25.2 mg/dL (7-18); CALCIUM 8.5 mg/dL (8.5-10.1)
[2020-08-09 17:26] LABS: CREATININE 1.1 mg/dL (0.55-1.3)
[2020-08-09] MEDS ORDERED: ALBUTEROL SO4 HFA INHALER IH PRN (18:03)
[2020-08-09] MEDS: MIRTAZAPINE 15 MG TABLET (FP) PO SCH (21:14)
[2020-08-09] MEDS: ATORVASTATIN CA 40 MG TABLET (FP) PO SCH (21:14)
[2020-08-09] MEDS: INSULIN (LEVEMIR) 100 UNITS/ML UNITS SQ SCH (21:14)
[2020-08-09] MEDS ORDERED: CHLORHEXIDINE GLUCONATE 4% CLEANSER FOR DECOLONIZATION TP SCH ×2 (22:00)
[2020-08-09] MEDS ORDERED: ATORVASTATIN CA 40 MG TABLET (FP) PO SCH (22:00)
[2020-08-10] MEDS: HEPARIN NA (PORCINE) 5,000 UNITS/ML 1ML VIAL SQ SCH ×3 (06:12→21:30)
[2020-08-10] MEDS: INSULIN SLIDING SCALE (NOVOLOG) 1 VIAL SQ SCH ×5 (06:13→21:28)
[2020-08-10] MEDS: INSULIN (LEVEMIR) 100 UNITS/ML UNITS SQ SCH ×2 (06:13→21:24)
[2020-08-10] MEDS: MONTELUKAST NA 10 MG TABLET PO SCH (10:06)
[2020-08-10] MEDS: ASPIRIN COATED 81 MG TABLET.EC PO SCH (10:06)
[2020-08-10 12:52] LABS: BASO % 0.7 % (0-2.0); HEMATOCRIT 27.3 % (32.4-45.2); HEMOGLOBIN 9.4 GM/dL (10.7-15.3); LYMPH % 19.3 % (8-40); MCH 29.9 pg (25.7-33.7); MCHC 34.4 g/dl (32.0-36.0); MEAN CELL VOLUME 86.8 fl (80-96); MEAN PLT VOLUME 8.1 fl (7.5-11.1); PLATELET COUNT 385 K/MM3 (134-434); RBC 3.15 M/mm3 (3.60-5.2); RDW 13.4 % (11.6-15.6); WHITE BLOOD COUNT 8.3 K/mm3 (4.0-10.0)
[2020-08-10 13:15] LABS: POTASSIUM 3.9 mmol/L (3.5-5.1)
[2020-08-10 13:20] LABS: CREATININE 0.9 mg/dL (0.55-1.3)
[2020-08-10] MEDS ORDERED: ONDANSETRON 4 MG/2 ML VIAL IVPUSH PRN (13:31)
[2020-08-10] MEDS: DOCUSATE SODIUM 100 MG CAPSULE (FP) PO SCH ×2 (17:21→21:23)
[2020-08-10] MEDS: ATORVASTATIN CA 40 MG TABLET (FP) PO SCH (21:23)
[2020-08-10] MEDS: MIRTAZAPINE 15 MG TABLET (FP) PO SCH (21:23)
[2020-08-10] MEDS: SENNOSIDES 8.6MG TABLET (FP) PO SCH (21:23)
[2020-08-11] MEDS: INSULIN (LEVEMIR) 100 UNITS/ML UNITS SQ SCH (06:22)
[2020-08-11] MEDS: HEPARIN NA (PORCINE) 5,000 UNITS/ML 1ML VIAL SQ SCH (06:22)
[2020-08-11] MEDS: INSULIN SLIDING SCALE (NOVOLOG) 1 VIAL SQ SCH ×2 (06:22→11:41)
[2020-08-11] MEDS: ASPIRIN COATED 81 MG TABLET.EC PO SCH (09:52)
[2020-08-11] MEDS: SENNOSIDES 8.6MG TABLET (FP) PO SCH (09:52)
[2020-08-11] MEDS: MONTELUKAST NA 10 MG TABLET PO SCH (09:53)
[2020-08-11] MEDS: DOCUSATE SODIUM 100 MG CAPSULE (FP) PO SCH (09:53)
[2020-08-11 10:27] VITALS: BP 127/74; PULSE 71; TEMP 98.7
[2020-08-11] MEDS ORDERED: POLYETHYLENE GLYCOL 3350 119 GM BTL PO ONE (12:10)
== END 2020-08-11 14:25 | disposition home or self-care (01) | DRG 638 ==
LOC: JER 22:15 → JERBED 23:30 → JICU 08-09 02:26 → J6S 08-09 19:08
PROVIDERS: ADMIT Internal Medicine; ATTEND Student in an Organized Health Care Education/Training Program
DX: E11.10 Type 2 diabetes mellitus with ketoacidosis without coma (principal); E87.1 Hypo-osmolality and hyponatremia; N17.9 Acute kidney failure, unspecified; K92.0 Hematemesis; J45.909 Unspecified asthma, uncomplicated; E78.5 Hyperlipidemia, unspecified; F32.9 Major depressive disorder, single episode, unspecified; E87.5 Hyperkalemia; K59.09 Other constipation; D64.9 Anemia, unspecified; Z79.4 Long term (current) use of insulin; G47.00 Insomnia, unspecified; K21.9 Gastro-esophageal reflux disease without esophagitis
CPT/HCPCS: 36415; 71045-TC-FY; 80048; 80053; 82010; 82550; 82803; 82962; 83036; 83605; 83690; 83735; 84100; 84484; 85025; 85027; 85610; 85730; 86850; 86900; 86901; 93005; 93010; 99291; C9803; J0131; J1644; U0003

== ENCOUNTER 2020-11-26 15:31 | Inpatient (IN) | payer OTHER ==
[2020-11-26] MEDS ORDERED: LACTATED RINGERS SOLUTION 1000 ML INFUS.BAG IV ONE ×4 (16:15→18:53)
[2020-11-26] MEDS ORDERED: METOCLOPRAMIDE HCL INJECTION 10 MG/2 ML VIAL IVPUSH ONE (16:46)
[2020-11-26] MEDS ORDERED: METOCLOPRAMIDE HCL INJECTION 10 MG/2 ML VIAL ONE (16:58)
[2020-11-26] MEDS ORDERED: INSULIN REGULAR HUMAN 100 UNITS/ML *VIAL* (FOR IVP) IVPUSH ONE ×2 (16:59→18:51)
[2020-11-26] MEDS ORDERED: INSULIN REGULAR 100 UNITS in SODIUM CHLORIDE 99 ML IVPB SCH ×2 (17:00→19:00)
[2020-11-26 17:06] LABS: BASO % 0.6 % (0-2.0); EOS % 0.1 % (0-4.5); HEMOGLOBIN 11.2 GM/dL (10.7-15.3); LYMPH % 6.4 % (8-40); MCH 29.9 pg (25.7-33.7); MCHC 32.8 g/dl (32.0-36.0); MEAN CELL VOLUME 91.2 fl (80-96); MEAN PLT VOLUME 8.4 fl (7.5-11.1); MONO % 3.9 % (3.8-10.2); PLATELET COUNT 586 K/MM3 (134-434); RBC 3.73 M/mm3 (3.60-5.2); RDW 14.1 % (11.6-15.6); VENOUS BASE EXCESS -20.4 mmol/L (-2-2); VENOUS O2 SATURATION 39.4 % (70-80); VENOUS PCO2 26.4 mmHg (38-52); WHITE BLOOD COUNT 11.4 K/mm3 (4.0-10.0)
[2020-11-26 17:13] LABS: INR 1.13 (0.83-1.09); PROTHROMBIN TIME (PATIENT) 13.6 SEC (9.7-13.0)
[2020-11-26 17:16] LABS: ACTIVATED PTT 34.2 SECONDS (25.2-36.5)
[2020-11-26 17:18] LABS: VENOUS PH 7.093 (7.310-7.410)
[2020-11-26 17:31] LABS: CHLORIDE 100 mmol/L (98-107); MAGNESIUM 2.1 mg/dL (1.8-2.4); SODIUM 134 mmol/L (136-145)
[2020-11-26 17:34] LABS: ANION GAP 27 MMOL/L (8-16); BLOOD UREA NITROGEN 22.8 mg/dL (7-18); CO2 7 mmol/L (21-32)
[2020-11-26 17:35] LABS: PHOSPHOROUS 6.5 mg/dL (2.5-4.9)
[2020-11-26 17:37] LABS: CREATININE 1.4 mg/dL (0.55-1.3); SGOT/AST 6 U/L (15-37); SGPT/ALT 10 U/L (13-61)
[2020-11-26 17:38] LABS: BILIRUBIN,TOTAL 0.4 mg/dL (0.2-1); TOT PROT 7.3 g/dl (6.4-8.2)
[2020-11-26 17:39] LABS: ALK PHOS 144 U/L (45-117)
[2020-11-26] MEDS ORDERED: ONDANSETRON 4 MG/2 ML VIAL IVPUSH ONE (17:48)
[2020-11-26 18:01] LABS: GLUCOSE,RANDOM 613 mg/dL (74-106); LACTIC ACID 2.2 mmol/L (0.4-2.0)
[2020-11-26] MEDS ORDERED: ONDANSETRON 4 MG/2 ML VIAL ONE (18:30)
[2020-11-26] MEDS ORDERED: INSULIN REGULAR HUMAN 100 UNITS/ML *VIAL ONE (18:30)
[2020-11-26] MEDS ORDERED: LACTATED RINGERS SOLUTION 1,000 ML/1,000 ML INFUS.BAG IV SCH ×2 (19:00→19:41)
[2020-11-26 20:22] LABS: VENOUS BASE EXCESS -18.5 mmol/L (-2-2); VENOUS O2 SATURATION 27.5 % (70-80); VENOUS PCO2 29.1 mmHg (38-52)
[2020-11-26 20:25] LABS: VENOUS PH 7.126 (7.310-7.410)
[2020-11-26 20:45] LABS: CHLORIDE 106 mmol/L (98-107); SODIUM 140 mmol/L (136-145)
[2020-11-26 20:46] LABS: CALCIUM 8.4 mg/dL (8.5-10.1)
[2020-11-26 20:47] LABS: ANION GAP 23 MMOL/L (8-16); BLOOD UREA NITROGEN 21.2 mg/dL (7-18); CO2 11 mmol/L (21-32); MAGNESIUM 1.7 mg/dL (1.8-2.4)
[2020-11-26 20:50] LABS: CREATININE 1.3 mg/dL (0.55-1.3); GLUCOSE,RANDOM 480 mg/dL (74-106); PHOSPHOROUS 4.1 mg/dL (2.5-4.9)
[2020-11-26] MEDS ORDERED: LACTATED RINGERS SOLUTION 1,000 ML with POTASSIUM CHLORIDE 20 MEQ IV ONE (21:11)
[2020-11-26] MEDS ORDERED: MAGNESIUM SULF 50% (8.12 MEQ/2 ML-1 GM VIAL) IVPB ONE (21:15)
[2020-11-26] MEDS ORDERED: METOCLOPRAMIDE HCL INJECTION 10 MG/2 ML VIAL IVPUSH PRN (21:22)
[2020-11-26] MEDS ORDERED: MAGNESIUM SULF 50% (8.12 MEQ/2 ML-1 GM VIAL) ONE (21:26)
[2020-11-26] MEDS: PANTOPRAZOLE SODIUM 40 MG VIAL IVPUSH SCH (21:42)
[2020-11-26] MEDS: MUPIROCIN 2% TOPICAL OINTMENT FOR DECOLONIZATION NS SCH (21:48)
[2020-11-26 21:57] LABS: LIPASE 84 U/L (73-393)
[2020-11-26] MEDS ORDERED: CHLORHEXIDINE GLUCONATE 4% CLEANSER FOR DECOLONIZATION TP SCH (22:00)
[2020-11-26 22:10] LABS: CHLORIDE 107 mmol/L (98-107); SODIUM 139 mmol/L (136-145)
[2020-11-26 22:11] LABS: CALCIUM 8.7 mg/dL (8.5-10.1)
[2020-11-26 22:12] LABS: ANION GAP 17 MMOL/L (8-16); BLOOD UREA NITROGEN 19.8 mg/dL (7-18); CO2 15 mmol/L (21-32)
[2020-11-26 22:15] LABS: CREATININE 1.1 mg/dL (0.55-1.3)
[2020-11-26 22:27] LABS: GLUCOSE,RANDOM 402 mg/dL (74-106)
[2020-11-26 23:55] LABS: EPI CELLS 3 /uL (0-25.1); HYALINE CASTS 0 /uL (0-3.1); URINE APPEARANCE CLEAR; URINE BACTERIA 131 /uL (0-1359); URINE BILIRUBIN NEGATIVE (NEGATIVE); URINE COLOR YELLOW; URINE GLUCOSE (UA) 3+ (NEGATIVE); URINE KETONE 4+ (NEGATIVE); URINE LEUK ESTERASE NEGATIVE (NEGATIVE); URINE NITRITE NEGATIVE (NEGATIVE); URINE PROTEIN 2+ (NEGATIVE); URINE RBC 5 /uL (0-23.9); URINE UROBILINOGEN 0.2 mg/dL (0.2-1.0); URINE WBC 7 /uL (0-25.8)
[2020-11-27 00:11] LABS: CALCIUM 8.3 mg/dL (8.5-10.1)
[2020-11-27 00:13] LABS: BLOOD UREA NITROGEN 19.2 mg/dL (7-18)
[2020-11-27 00:15] LABS: CREATININE 1.2 mg/dL (0.55-1.3)
[2020-11-27] MEDS ORDERED: INSULIN (LEVEMIR) 100 UNITS/ML UNITS SQ SCH ×4 (01:45→15:24)
[2020-11-27] MEDS: INSULIN (LEVEMIR) 100 UNITS/ML UNITS SQ SCH ×3 (01:58→22:30)
[2020-11-27] MEDS ORDERED: SODIUM CHLORIDE NASAL SPRAY 44 ML BOTTLE NS ONE (03:55)
[2020-11-27] MEDS: SODIUM CHLORIDE 1,000 ML IV SCH ×2 (04:06→14:28)
[2020-11-27 06:11] LABS: VENOUS BASE EXCESS -0.9 mmol/L (-2-2); VENOUS O2 SATURATION 94.6 % (70-80); VENOUS PCO2 36.9 mmHg (38-52); VENOUS PH 7.42 (7.310-7.410)
[2020-11-27 06:24] LABS: EOS % 0.2 % (0-4.5); HEMATOCRIT 24.1 % (32.4-45.2); HEMOGLOBIN 8.6 GM/dL (10.7-15.3); LYMPH % 12.7 % (8-40); MCH 30.6 pg (25.7-33.7); MCHC 35.8 g/dl (32.0-36.0); MEAN CELL VOLUME 85.6 fl (80-96); MEAN PLT VOLUME 7.7 fl (7.5-11.1); MONO % 11.1 % (3.8-10.2); PLATELET COUNT 449 K/MM3 (134-434); RBC 2.82 M/mm3 (3.60-5.2); RDW 13.6 % (11.6-15.6); WHITE BLOOD COUNT 13.4 K/mm3 (4.0-10.0)
[2020-11-27 06:25] LABS: INR 1.09 (0.83-1.09); PROTHROMBIN TIME (PATIENT) 13.1 SEC (9.7-13.0)
[2020-11-27 06:27] LABS: ACTIVATED PTT 29.3 SECONDS (25.2-36.5)
[2020-11-27] MEDS: INSULIN SLIDING SCALE (NOVOLOG) 1 VIAL SQ SCH ×4 (06:31→21:44)
[2020-11-27 06:33] LABS: MAGNESIUM 1.9 mg/dL (1.8-2.4)
[2020-11-27 06:37] LABS: PHOSPHOROUS 2.2 mg/dL (2.5-4.9)
[2020-11-27] MEDS ORDERED: PNEUMOC 13-VAL CONJ-DIP CRM/PF 0.5 ML DISP.SYRIN IM ONE (10:00)
[2020-11-27] MEDS ORDERED: ONDANSETRON 4 MG/2 ML VIAL IVPUSH ONE (10:27)
[2020-11-27] MEDS: PANTOPRAZOLE SODIUM 40 MG VIAL IVPUSH SCH (10:49)
[2020-11-27] MEDS: MUPIROCIN 2% TOPICAL OINTMENT FOR DECOLONIZATION NS SCH (10:51)
[2020-11-27] MEDS ORDERED: METOCLOPRAMIDE HCL INJECTION 10 MG/2 ML VIAL IVPUSH PRN (17:04)
[2020-11-27] MEDS ORDERED: MUPIROCIN 2% TOPICAL OINTMENT FOR DECOLONIZATION NS SCH (22:00)
[2020-11-27] MEDS ORDERED: CHLORHEXIDINE GLUCONATE 4% CLEANSER FOR DECOLONIZATION TP SCH (22:00)
[2020-11-28] MEDS: INSULIN (LEVEMIR) 100 UNITS/ML UNITS SQ SCH ×2 (06:28→22:04)
[2020-11-28] MEDS: INSULIN SLIDING SCALE (NOVOLOG) 1 VIAL SQ SCH ×4 (06:29→22:04)
[2020-11-28 08:37] LABS: BASO % 0.9 % (0-2.0); EOS % 0.9 % (0-4.5); HEMATOCRIT 24.6 % (32.4-45.2); HEMOGLOBIN 8.6 GM/dL (10.7-15.3); LYMPH % 24.4 % (8-40); MCHC 34.9 g/dl (32.0-36.0); MEAN CELL VOLUME 86.1 fl (80-96); MEAN PLT VOLUME 7.8 fl (7.5-11.1); MONO % 9.1 % (3.8-10.2); NEUT % 64.7 % (42.8-82.8); PLATELET COUNT 321 K/MM3 (134-434); RBC 2.86 M/mm3 (3.60-5.2); RDW 13.8 % (11.6-15.6)
[2020-11-28 09:08] LABS: CALCIUM 7.8 mg/dL (8.5-10.1)
[2020-11-28 09:09] LABS: BLOOD UREA NITROGEN 8.3 mg/dL (7-18); MAGNESIUM 1.7 mg/dL (1.8-2.4)
[2020-11-28 09:12] LABS: CREATININE 0.5 mg/dL (0.55-1.3)
[2020-11-28 09:13] LABS: BILIRUBIN,TOTAL 0.5 mg/dL (0.2-1)
[2020-11-28 09:14] LABS: TOT PROT 5.3 g/dl (6.4-8.2)
[2020-11-28 09:16] LABS: ALBUMIN 2.2 g/dl (3.4-5.0)
[2020-11-28] MEDS: PANTOPRAZOLE SODIUM 40 MG VIAL IVPUSH SCH (10:07)
[2020-11-28] MEDS ORDERED: MAGNESIUM SULF 50% (8.12 MEQ/2 ML-1 GM VIAL) IVPB ONE (12:15)
[2020-11-28] MEDS: ENOXAPARIN NA (PORCINE) 40 MG/0.4 ML DISP.SYRIN SQ SCH (15:03)
[2020-11-28] MEDS ORDERED: BISACODYL 5 MG TABLET.DR (FP) PO ONE (19:10)
[2020-11-29] MEDS: INSULIN (LEVEMIR) 100 UNITS/ML UNITS SQ SCH ×2 (06:29→22:53)
[2020-11-29] MEDS: INSULIN SLIDING SCALE (NOVOLOG) 1 VIAL SQ SCH ×4 (06:31→22:52)
[2020-11-29] MEDS ORDERED: INSULIN (NOVOLOG) ASPART 100 UNITS/ML 10ML VIAL ONE ×3 (08:00→22:38)
[2020-11-29 08:22] LABS: BASO % 1.3 % (0-2.0); EOS % 3.1 % (0-4.5); HEMATOCRIT 27.2 % (32.4-45.2); HEMOGLOBIN 9.5 GM/dL (10.7-15.3); LYMPH % 31.5 % (8-40); MCH 29.9 pg (25.7-33.7); MEAN CELL VOLUME 85.5 fl (80-96); MEAN PLT VOLUME 7.7 fl (7.5-11.1); MONO % 9.8 % (3.8-10.2); NEUT % 54.3 % (42.8-82.8); PLATELET COUNT 369 K/MM3 (134-434); RBC 3.19 M/mm3 (3.60-5.2); RDW 13.3 % (11.6-15.6); WHITE BLOOD COUNT 5.5 K/mm3 (4.0-10.0)
[2020-11-29] MEDS ORDERED: BISACODYL 10 MG SUPP.RECT PR ONE ×2 (08:27→11:30)
[2020-11-29 08:56] LABS: ALBUMIN 2.3 g/dl (3.4-5.0)
[2020-11-29 08:57] LABS: BLOOD UREA NITROGEN 10.1 mg/dL (7-18)
[2020-11-29 09:00] LABS: CREATININE 0.5 mg/dL (0.55-1.3)
[2020-11-29 09:01] LABS: BILIRUBIN,TOTAL 0.3 mg/dL (0.2-1); TOT PROT 5.8 g/dl (6.4-8.2)
[2020-11-29] MEDS: PANTOPRAZOLE SODIUM 40 MG VIAL IVPUSH SCH (10:22)
[2020-11-29] MEDS: ENOXAPARIN NA (PORCINE) 40 MG/0.4 ML DISP.SYRIN SQ SCH (10:22)
[2020-11-29] MEDS ORDERED: PT OWN MED DRAWER 7, Y5N ONE (11:03)
[2020-11-29] MEDS ORDERED: BISACODYL 5 MG TABLET.DR (FP) PO ONE (11:30)
[2020-11-29] MEDS: POTASSIUM CHLORIDE TABS 20 MEQ TABLET.ER (FP) PO SCH ×2 (11:36→21:20)
[2020-11-30] MEDS: INSULIN (LEVEMIR) 100 UNITS/ML UNITS SQ SCH ×2 (06:22→21:31)
[2020-11-30] MEDS: INSULIN SLIDING SCALE (NOVOLOG) 1 VIAL SQ SCH ×4 (06:23→21:31)
[2020-11-30 08:21] LABS: EOS % 3.4 % (0-4.5); HEMATOCRIT 27.7 % (32.4-45.2); HEMOGLOBIN 9.6 GM/dL (10.7-15.3); LYMPH % 27.5 % (8-40); MCHC 34.7 g/dl (32.0-36.0); MEAN CELL VOLUME 86.4 fl (80-96); MEAN PLT VOLUME 7.8 fl (7.5-11.1); MONO % 9.9 % (3.8-10.2); NEUT % 58.2 % (42.8-82.8); PLATELET COUNT 394 K/MM3 (134-434); RBC 3.21 M/mm3 (3.60-5.2); RDW 13.5 % (11.6-15.6); WHITE BLOOD COUNT 6.3 K/mm3 (4.0-10.0)
[2020-11-30 08:32] LABS: ALBUMIN 2.4 g/dl (3.4-5.0); BLOOD UREA NITROGEN 12.6 mg/dL (7-18)
[2020-11-30 08:33] LABS: CALCIUM 8.3 mg/dL (8.5-10.1)
[2020-11-30 08:36] LABS: PHOSPHOROUS 3.4 mg/dL (2.5-4.9)
[2020-11-30 08:37] LABS: BILIRUBIN,TOTAL 0.2 mg/dL (0.2-1); CREATININE 0.6 mg/dL (0.55-1.3); TOT PROT 5.8 g/dl (6.4-8.2)
[2020-11-30] MEDS: ENOXAPARIN NA (PORCINE) 40 MG/0.4 ML DISP.SYRIN SQ SCH (09:36)
[2020-11-30] MEDS: PANTOPRAZOLE SODIUM 40 MG VIAL IVPUSH SCH (09:36)
[2020-11-30 19:01] VITALS: BMI 17.8
[2020-11-30] MEDS ORDERED: INSULIN (NOVOLOG) ASPART 100 UNITS/ML 10ML VIAL ONE (21:14)
[2020-12-01] MEDS: INSULIN (LEVEMIR) 100 UNITS/ML UNITS SQ SCH (06:23)
[2020-12-01] MEDS: INSULIN SLIDING SCALE (NOVOLOG) 1 VIAL SQ SCH ×2 (06:23→11:35)
[2020-12-01] MEDS ORDERED: INSULIN (LEVEMIR) 100 UNITS/ML UNITS SQ SCH (08:17)
[2020-12-01] MEDS ORDERED: LISINOPRIL 5 MG TABLET PO SCH (10:00)
[2020-12-01] MEDS ORDERED: POLYETHYLENE GLYCOL 3350 119 GM BTL PO SCH (10:00)
[2020-12-01] MEDS: ENOXAPARIN NA (PORCINE) 40 MG/0.4 ML DISP.SYRIN SQ SCH (11:19)
[2020-12-01] MEDS ORDERED: PANTOPRAZOLE 40 MG TABLET PO SCH (11:45)
[2020-12-01] MEDS: PANTOPRAZOLE SODIUM 40 MG VIAL IVPUSH SCH (12:33)
[2020-12-01 14:57] VITALS: BP 122/72; PULSE 79; TEMP 98.4
== END 2020-12-01 14:59 | disposition home or self-care (01) | DRG 638 ==
LOC: JER 15:31 → JERBED 18:06 → JICU 20:45 → J6S 11-27 16:25
PROVIDERS: ADMIT Internal Medicine; ATTEND Student in an Organized Health Care Education/Training Program
DX: E11.10 Type 2 diabetes mellitus with ketoacidosis without coma (principal); N17.9 Acute kidney failure, unspecified; K29.80 Duodenitis without bleeding; E78.5 Hyperlipidemia, unspecified; H11.153 Pinguecula, bilateral; K21.9 Gastro-esophageal reflux disease without esophagitis; K59.00 Constipation, unspecified; J45.20 Mild intermittent asthma, uncomplicated; E11.65 Type 2 diabetes mellitus with hyperglycemia
CPT/HCPCS: 36415; 70486-TC; 71045-TC-FY; 80048; 80053; 81003; 82010; 82550; 82570; 82803; 82962; 83036; 83605; 83690; 83735; 84100; 84156; 84484; 85025; 85027; 85610; 85730; 87086; 87804; 93005; 93010; 99291; C9803; U0003; U0005

== ENCOUNTER 2021-05-21 15:29 | Emergency (ER) | payer OTHER ==
[2021-05-21 15:56] VITALS: PULSE 73; TEMP 99; BMI 18.8
[2021-05-21] MEDS ORDERED: SODIUM CHLORIDE 1,000 ML IV STA (16:08)
[2021-05-21 18:20] LABS: VENOUS BASE EXCESS 1.1 mmol/L (-2-2); VENOUS O2 SATURATION 20.9 % (70-80); VENOUS PCO2 52.3 mmHg (38-52); VENOUS PH 7.334 (7.310-7.410)
[2021-05-21 18:26] LABS: EPI CELLS 18 /uL (0-25.1); HYALINE CASTS 0 /uL (0-3.1); PH,URINE 7.5 (5.0-8.0); URINE APPEARANCE CLEAR; URINE BACTERIA 140 /uL (0-1359); URINE BILIRUBIN NEGATIVE (NEGATIVE); URINE COLOR YELLOW; URINE GLUCOSE (UA) 3+ (NEGATIVE); URINE KETONE NEGATIVE (NEGATIVE); URINE LEUK ESTERASE NEGATIVE (NEGATIVE); URINE NITRITE NEGATIVE (NEGATIVE); URINE PROTEIN 2+ (NEGATIVE); URINE RBC 17 /uL (0-23.9); URINE UROBILINOGEN 0.2 mg/dL (0.2-1.0); URINE WBC 5 /uL (0-25.8)
[2021-05-21 18:29] LABS: INR 1.11 (0.83-1.09)
[2021-05-21 18:32] LABS: ACTIVATED PTT 34.7 SECONDS (25.2-36.5)
[2021-05-21 18:39] LABS: BASO % 2.2 % (0-2.0); EOS % 6.6 % (0-4.5); HEMATOCRIT 29.3 % (32.4-45.2); HEMOGLOBIN 9.8 GM/dL (10.7-15.3); LYMPH % 22.8 % (8-40); MCH 28.5 pg (25.7-33.7); MCHC 33.3 g/dl (32.0-36.0); MEAN CELL VOLUME 85.5 fl (80-96); MEAN PLT VOLUME 7.7 fl (7.5-11.1); MONO % 8.3 % (3.8-10.2); NEUT % 60.1 % (42.8-82.8); PLATELET COUNT 506 10^3/uL (134-434); RBC 3.43 M/mm3 (3.60-5.2); RDW 13.7 % (11.6-15.6); WHITE BLOOD COUNT 6.9 K/mm3 (4.0-10.0)
[2021-05-21 18:42] LABS: CHLORIDE 100 mmol/L (98-107); SODIUM 135 mmol/L (136-145)
[2021-05-21 18:45] LABS: ALBUMIN 2.2 g/dl (3.4-5.0); ANION GAP 8 MMOL/L (8-16); BLOOD UREA NITROGEN 18.2 mg/dL (7-18); CALCIUM 8.6 mg/dL (8.5-10.1); CO2 27 mmol/L (21-32)
[2021-05-21 18:47] LABS: CREATININE 1.1 mg/dL (0.55-1.3); MAGNESIUM 2.3 mg/dL (1.8-2.4); SGOT/AST 13 U/L (15-37); SGPT/ALT 18 U/L (13-61)
[2021-05-21 18:49] LABS: BILIRUBIN,TOTAL 0.1 mg/dL (0.2-1); TOT PROT 6.5 g/dl (6.4-8.2)
[2021-05-21 18:51] LABS: ALK PHOS 176 U/L (45-117)
[2021-05-21] MEDS ORDERED: INSULIN (NOVOLOG) ASPART 100 UNITS/ML 10ML VIAL SQ ONE (18:53)
[2021-05-21 18:56] LABS: GLUCOSE,RANDOM 532 mg/dL (74-106)
[2021-05-21] MEDS ORDERED: INSULIN REGULAR HUMAN 100 UNITS/ML *VIAL ONE (19:03)
[2021-05-21 20:18] VITALS: BP 172/95
== END 2021-05-21 20:49 | disposition home or self-care (01) ==
LOC: JER 15:29
PROC: 3E0337Z Introduction of Electrolytic and Water Balance Substance into Peripheral Vein, Percutaneous Approach (ICD-10-PCS; principal; 2021-05-21)
DX: E11.65 Type 2 diabetes mellitus with hyperglycemia (principal); V87.7XXA Person injured in collision between other specified motor vehicles (traffic), initial encounter; Y92.9 Unspecified place or not applicable
CPT/HCPCS: 36415; 70450-TC; 71045-TC-FY; 80053; 80307; 81003; 82010; 82550; 82803; 82962; 83735; 84484; 85025; 85610; 85730; 93005; 93010; 99284-25; C9803; U0003; U0005

== ENCOUNTER 2021-07-17 13:49 | Emergency (ER) | payer OTHER ==
[2021-07-17 14:52] VITALS: BP 168/83; PULSE 68; TEMP 98; BMI 19.1
[2021-07-18 16:11] LABS: SARS-CoV-2 NAA Not Detected (Not Detected)
== END 2021-07-17 16:35 | disposition home or self-care (01) ==
LOC: JER 13:49 → JCOVINFU 13:49 → JER 16:35
DX: B34.9 Viral infection, unspecified (principal)
CPT/HCPCS: 87804; 99283-25; C9803; U0003; U0005

== ENCOUNTER 2021-09-11 11:36 | Emergency (ER) | payer OTHER ==
[2021-09-11 11:54] VITALS: PULSE 75; BMI 19.8
[2021-09-11 12:54] LABS: BASO % 1.3 % (0-2.0); EOS % 6.1 % (0-4.5); HEMATOCRIT 25.8 % (32.4-45.2); HEMOGLOBIN 8.9 GM/dL (10.7-15.3); LYMPH % 25.6 % (8-40); MCH 28.9 pg (25.7-33.7); MCHC 34.3 g/dl (32.0-36.0); MEAN CELL VOLUME 84.2 fl (80-96); MEAN PLT VOLUME 7.5 fl (7.5-11.1); MONO % 9.7 % (3.8-10.2); NEUT % 57.3 % (42.8-82.8); PLATELET COUNT 495 10^3/uL (134-434); RBC 3.07 M/mm3 (3.60-5.2); RDW 14.1 % (11.6-15.6); WHITE BLOOD COUNT 6.3 K/mm3 (4.0-10.0)
[2021-09-11 12:59] LABS: VENOUS BASE EXCESS -1.5 mmol/L (-2-2); VENOUS O2 SATURATION 39.6 % (70-80); VENOUS PCO2 45.9 mmHg (38-52); VENOUS PH 7.342 (7.310-7.410)
[2021-09-11 13:24] LABS: ALBUMIN 2.3 g/dl (3.4-5.0); BLOOD UREA NITROGEN 18.6 mg/dL (7-18); CALCIUM 8.3 mg/dL (8.5-10.1)
[2021-09-11 13:29] LABS: BILIRUBIN,TOTAL 0.1 mg/dL (0.2-1); TOT PROT 6.3 g/dl (6.4-8.2)
[2021-09-11] MEDS ORDERED: ONDANSETRON 4 MG/2 ML VIAL IVPUSH ONE (14:56)
[2021-09-11] MEDS ORDERED: SODIUM PHOSPHATE/NA BIPHOS 133 ML ENEMA PR ONE (14:57)
[2021-09-11] MEDS ORDERED: ONDANSETRON 4 MG/2 ML VIAL ONE (15:17)
[2021-09-11 17:16] VITALS: BP 156/79; TEMP 98.6
== END 2021-09-11 17:16 | disposition home or self-care (01) ==
LOC: JER 11:36
PROC: 3E033GC Introduction of Other Therapeutic Substance into Peripheral Vein, Percutaneous Approach (ICD-10-PCS; principal; 2021-09-11)
DX: K59.00 Constipation, unspecified (principal); R10.9 Unspecified abdominal pain
CPT/HCPCS: 36415; 71045-TC-FY; 74177-TC; 80053; 82010; 82550; 82803; 83690; 84484; 85025; 93005; 93010; 99285-25; Q9967

== ENCOUNTER 2022-02-08 14:41 | Emergency (ER) | payer OTHER ==
[2022-02-08 14:50] VITALS: BMI 23.3
[2022-02-08] MEDS ORDERED: ONDANSETRON 4 MG/2 ML VIAL IVPB ONE (15:11)
[2022-02-08] MEDS ORDERED: FAMOTIDINE 20 MG/50 ML IVPB 20 MG in PREMIX 50 IVPB ONE (15:11)
[2022-02-08] MEDS ORDERED: SODIUM CHLORIDE 1,000 ML IV ONE ×2 (15:11→17:17)
[2022-02-08] MEDS ORDERED: ACETAMINOPHEN 1000 MG/100 ML BAG IVPB ONE (15:16)
[2022-02-08] MEDS ORDERED: ACETAMINOPHEN INJECTION 100 ML IVPB ONE (15:33)
[2022-02-08] MEDS ORDERED: ONDANSETRON 4 MG/2 ML VIAL ONE (15:33)
[2022-02-08] MEDS ORDERED: FAMOTIDINE 20 MG/50 ML IVPB 20 MG/50 ML MG IVPB ONE (15:33)
[2022-02-08 16:17] LABS: HEMATOCRIT 25.7 % (32.4-45.2); HEMOGLOBIN 8.8 GM/dL (10.7-15.3); MCH 28.3 pg (25.7-33.7); MCHC 34.3 g/dl (32.0-36.0); MEAN CELL VOLUME 82.5 fl (80-96); MEAN PLT VOLUME 7.5 fl (7.5-11.1); PLATELET COUNT 326 10^3/uL (134-434); RBC 3.11 M/mm3 (3.60-5.2); RDW 13.9 % (11.6-15.6); WHITE BLOOD COUNT 3.2 K/mm3 (4.0-10.0)
[2022-02-08 16:23] LABS: INR 1.16 (0.83-1.09); PROTHROMBIN TIME (PATIENT) 13.4 SEC (9.7-13.0)
[2022-02-08 16:24] LABS: VENOUS BASE EXCESS -2.6 mmol/L (-2-2); VENOUS O2 SATURATION 70.3 % (70-80); VENOUS PCO2 42.6 mmHg (38-52); VENOUS PH 7.348 (7.310-7.410)
[2022-02-08 16:43] LABS: CALCIUM 7.9 mg/dL (8.5-10.1)
[2022-02-08 16:44] LABS: ALBUMIN 2.4 g/dl (3.4-5.0); ANISOCYTOSIS 0; BLOOD UREA NITROGEN 32.5 mg/dL (7-18); HELMET CELLS 0; HOWELL-JOLLY BODIES 0; MACROCYTOSIS 0; OVALOCYTE 0; ROULEAU 0; SICKELED CELLS 0; TARGET CELLS 0; TEAR DROP CELLS 0; TOXIC GRANULATION 0
[2022-02-08 16:47] LABS: CREATININE 1.6 mg/dL (0.55-1.3)
[2022-02-08 16:48] LABS: BILIRUBIN,TOTAL 0.1 mg/dL (0.2-1); TOT PROT 6.2 g/dl (6.4-8.2)
[2022-02-08 18:10] VITALS: TEMP 99.6
[2022-02-08 18:47] LABS: EPI CELLS 13 /uL (0-25.1); HYALINE CASTS 2 /uL (0-3.1); PH,URINE 6.5 (5.0-8.0); URINE APPEARANCE CLEAR; URINE BACTERIA 58 /uL (0-1359); URINE BILIRUBIN NEGATIVE (NEGATIVE); URINE COLOR YELLOW; URINE GLUCOSE (UA) TRACE (NEGATIVE); URINE KETONE NEGATIVE (NEGATIVE); URINE LEUK ESTERASE NEGATIVE (NEGATIVE); URINE NITRITE NEGATIVE (NEGATIVE); URINE PROTEIN 3+ (NEGATIVE); URINE RBC 85 /uL (0-23.9); URINE UROBILINOGEN 0.2 mg/dL (0.2-1.0); URINE WBC 6 /uL (0-25.8)
[2022-02-08 20:51] VITALS: BP 150/73; PULSE 68; RESP 18
[2022-02-08 21:19] LABS: BLOOD UREA NITROGEN 29.3 mg/dL (7-18); CALCIUM 7.1 mg/dL (8.5-10.1)
[2022-02-08 21:23] LABS: CREATININE 1.3 mg/dL (0.55-1.3)
[2022-02-08] MEDS ORDERED: ONDANSETRON *ODT* 4 MG TABLET SL ONE (21:44)
[2022-02-08] MEDS ORDERED: ONDANSETRON *ODT* 4 MG TABLET ONE (21:46)
== END 2022-02-08 22:49 | disposition home or self-care (01) ==
LOC: JER 14:41
PROC: 3E0333Z Introduction of Anti-inflammatory into Peripheral Vein, Percutaneous Approach (ICD-10-PCS; principal; 2022-02-08)
PROC: 3E033GC Introduction of Other Therapeutic Substance into Peripheral Vein, Percutaneous Approach (ICD-10-PCS; 2022-02-08)
PROC: 3E033GC Introduction of Other Therapeutic Substance into Peripheral Vein, Percutaneous Approach (ICD-10-PCS; 2022-02-08)
PROC: 3E0337Z Introduction of Electrolytic and Water Balance Substance into Peripheral Vein, Percutaneous Approach (ICD-10-PCS; 2022-02-08)
PROC: 3E0337Z Introduction of Electrolytic and Water Balance Substance into Peripheral Vein, Percutaneous Approach (ICD-10-PCS; 2022-02-08)
DX: U07.1 COVID-19 (principal); N17.9 Acute kidney failure, unspecified
CPT/HCPCS: 0241U-QW; 36415; 71045-TC-FY; 80048; 80053; 81003; 82803; 82962; 83605; 83690; 84484; 85025; 85610; 86850; 86900; 86901; 87040; 93005; 93010; 99285-25; Q0162

== ENCOUNTER 2022-02-13 17:33 | Emergency (ER) | payer OTHER ==
[2022-02-13 18:04] VITALS: RESP 18; TEMP 98; BMI 23.3
[2022-02-13] MEDS ORDERED: FAMOTIDINE 20 MG/50 ML IVPB 20 MG/50 ML MG IVPB ONE ×2 (18:16→18:45)
[2022-02-13] MEDS ORDERED: ACETAMINOPHEN 1000 MG/100 ML BAG IVPB ONE (18:16)
[2022-02-13] MEDS ORDERED: SODIUM CHLORIDE 0.9% 500 ML INFUS.BAG IV ONE ×2 (18:16→21:57)
[2022-02-13] MEDS ORDERED: ONDANSETRON 4 MG/2 ML VIAL IVPUSH ONE (18:17)
[2022-02-13] MEDS ORDERED: BEBTELOVIMAB (EUA) 175 MG/2 ML VIAL IVPUSH ONE (18:32)
[2022-02-13 18:38] LABS: BASO % 0.5 % (0-2.0); EOS % 1.1 % (0-4.5); HEMATOCRIT 26.7 % (32.4-45.2); HEMOGLOBIN 9.2 GM/dL (10.7-15.3); LYMPH % 24.2 % (8-40); MCH 28.2 pg (25.7-33.7); MCHC 34.3 g/dl (32.0-36.0); MEAN CELL VOLUME 82.2 fl (80-96); MEAN PLT VOLUME 7.1 fl (7.5-11.1); MONO % 11.4 % (3.8-10.2); NEUT % 62.8 % (42.8-82.8); PLATELET COUNT 327 10^3/uL (134-434); RBC 3.25 M/mm3 (3.60-5.2); RDW 13.6 % (11.6-15.6); WHITE BLOOD COUNT 5.3 K/mm3 (4.0-10.0)
[2022-02-13] MEDS ORDERED: ONDANSETRON 4 MG/2 ML VIAL ONE ×2 (18:45→18:46)
[2022-02-13] MEDS ORDERED: ACETAMINOPHEN INJECTION 100 ML IVPB ONE (18:45)
[2022-02-13 18:57] LABS: CALCIUM 7.8 mg/dL (8.5-10.1)
[2022-02-13 18:58] LABS: ALBUMIN 2.2 g/dl (3.4-5.0); BLOOD UREA NITROGEN 30.9 mg/dL (7-18)
[2022-02-13 19:01] LABS: CREATININE 1.4 mg/dL (0.55-1.3)
[2022-02-13 19:02] LABS: TOT PROT 5.9 g/dl (6.4-8.2)
[2022-02-13 19:03] LABS: BILIRUBIN,TOTAL 0.1 mg/dL (0.2-1)
[2022-02-13 21:26] VITALS: BP 143/80; PULSE 68
[2022-02-13 22:39] LABS: EPI CELLS 31 /uL (0-25.1); HYALINE CASTS 1 /uL (0-3.1); URINE APPEARANCE CLEAR; URINE BACTERIA 246 /uL (0-1359); URINE BILIRUBIN NEGATIVE (NEGATIVE); URINE COLOR YELLOW; URINE GLUCOSE (UA) NEGATIVE (NEGATIVE); URINE KETONE NEGATIVE (NEGATIVE); URINE LEUK ESTERASE NEGATIVE (NEGATIVE); URINE NITRITE NEGATIVE (NEGATIVE); URINE PROTEIN 3+ (NEGATIVE); URINE UROBILINOGEN 0.2 mg/dL (0.2-1.0); URINE WBC 23 /uL (0-25.8)
[2022-02-13 23:13] LABS: URINE RBC 21.6 /uL (0-23.9); YEAST NONE SEEN (NEGATIVE)
== END 2022-02-14 00:15 | disposition home or self-care (01) ==
LOC: JER 17:33
PROC: 3E0333Z Introduction of Anti-inflammatory into Peripheral Vein, Percutaneous Approach (ICD-10-PCS; principal; 2022-02-13)
PROC: 3E033GC Introduction of Other Therapeutic Substance into Peripheral Vein, Percutaneous Approach (ICD-10-PCS; 2022-02-13)
PROC: 3E03329 Introduction of Other Anti-infective into Peripheral Vein, Percutaneous Approach (ICD-10-PCS; 2022-02-13)
PROC: 3E033GC Introduction of Other Therapeutic Substance into Peripheral Vein, Percutaneous Approach (ICD-10-PCS; 2022-02-13)
DX: U07.1 COVID-19 (principal); R10.9 Unspecified abdominal pain; R07.9 Chest pain, unspecified
CPT/HCPCS: 36415; 71045-TC-FY; 80053; 81003; 83690; 84484; 85025; 87086; 93005; 93010; 96374; 96375; 99285-25; M0222; Q0222

== ENCOUNTER 2022-04-11 16:38 | Observation (INO) | payer OTHER ==
[2022-04-11] MEDS ORDERED: SODIUM CHLORIDE 0.9% 500 ML INFUS.BAG IV ONE (17:07)
[2022-04-11] MEDS ORDERED: ONDANSETRON 4 MG/2 ML VIAL ONE (17:07)
[2022-04-11] MEDS ORDERED: ONDANSETRON 4 MG/2 ML VIAL IVPUSH ONE (17:07)
[2022-04-11 17:38] LABS: BASO % 0.9 % (0-2.0); EOS % 1.1 % (0-4.5); HEMATOCRIT 29.3 % (32.4-45.2); HEMOGLOBIN 10.3 GM/dL (10.7-15.3); LYMPH % 19.7 % (8-40); MCH 29.6 pg (25.7-33.7); MCHC 35.2 g/dl (32.0-36.0); MEAN CELL VOLUME 84.3 fl (80-96); MEAN PLT VOLUME 7.4 fl (7.5-11.1); NEUT % 68.3 % (42.8-82.8); PLATELET COUNT 448 10^3/uL (134-434); RBC 3.48 M/mm3 (3.60-5.2); RDW 13.4 % (11.6-15.6); WHITE BLOOD COUNT 7.2 K/mm3 (4.0-10.0)
[2022-04-11 17:44] LABS: INR 1.09 (0.83-1.09); PROTHROMBIN TIME (PATIENT) 12.6 SEC (9.7-13.0)
[2022-04-11 17:47] LABS: ACTIVATED PTT 38.1 SECONDS (25.2-36.5)
[2022-04-11 17:59] LABS: MAGNESIUM 2.5 mg/dL (1.8-2.4)
[2022-04-11 18:00] LABS: ALBUMIN 2.8 g/dl (3.4-5.0); BLOOD UREA NITROGEN 28.2 mg/dL (7-18); CALCIUM 8.7 mg/dL (8.5-10.1)
[2022-04-11 18:02] LABS: CREATININE 1.6 mg/dL (0.55-1.3)
[2022-04-11 18:04] LABS: PHOSPHOROUS 3.8 mg/dL (2.5-4.9); TOT PROT 6.8 g/dl (6.4-8.2)
[2022-04-11 18:05] LABS: BILIRUBIN,TOTAL 0.2 mg/dL (0.2-1)
[2022-04-11] MEDS ORDERED: ACETAMINOPHEN 1000 MG/100 ML BAG IVPB ONE (19:56)
[2022-04-11] MEDS ORDERED: ACETAMINOPHEN INJECTION 100 ML IVPB ONE (20:31)
[2022-04-11] MEDS ORDERED: METOCLOPRAMIDE HCL INJECTION 10 MG/2 ML VIAL IVPUSH ONE (20:44)
[2022-04-11] MEDS ORDERED: METOCLOPRAMIDE HCL INJECTION 10 MG/2 ML VIAL ONE (20:46)
[2022-04-11 23:17] LABS: RETICULOCYTES 1.35 % (0.5-1.5)
[2022-04-11] MEDS: POLYETHYLENE GLYCOL (HEALTHYLAX) 3350 17 GM PACKET PO SCH (23:20)
[2022-04-12] MEDS: INSULIN SLIDING SCALE (NOVOLOG) 1 VIAL SQ SCH ×4 (07:54→21:20)
[2022-04-12 09:02] LABS: HEMATOCRIT 26.1 % (32.4-45.2); HEMOGLOBIN 8.9 GM/dL (10.7-15.3); MCH 28.9 pg (25.7-33.7); MCHC 34.3 g/dl (32.0-36.0); MEAN CELL VOLUME 84.2 fl (80-96); MEAN PLT VOLUME 6.7 fl (7.5-11.1); PLATELET COUNT 391 10^3/uL (134-434); RBC 3.09 M/mm3 (3.60-5.2); RDW 13.6 % (11.6-15.6); WHITE BLOOD COUNT 5.4 K/mm3 (4.0-10.0)
[2022-04-12] MEDS ORDERED: POLYETHYLENE GLYCOL (HEALTHYLAX) 3350 17 GM PACKET ONE (09:16)
[2022-04-12] MEDS ORDERED: MONTELUKAST NA 10 MG TABLET ONE (09:16)
[2022-04-12] MEDS ORDERED: ASPIRIN COATED 81 MG TABLET.EC ONE (09:16)
[2022-04-12] MEDS ORDERED: ENOXAPARIN NA (PORCINE) 40 MG/0.4 ML DISP.SYRIN SQ ONE (09:17)
[2022-04-12 09:20] LABS: BLOOD UREA NITROGEN 25.6 mg/dL (7-18); CALCIUM 8.1 mg/dL (8.5-10.1); MAGNESIUM 2.6 mg/dL (1.8-2.4)
[2022-04-12 09:21] LABS: ALBUMIN 2.5 g/dl (3.4-5.0)
[2022-04-12 09:23] LABS: CREATININE 1.5 mg/dL (0.55-1.3); PHOSPHOROUS 4.2 mg/dL (2.5-4.9)
[2022-04-12 09:25] LABS: BILIRUBIN,TOTAL 0.2 mg/dL (0.2-1); TOT PROT 5.8 g/dl (6.4-8.2)
[2022-04-12] MEDS: ENOXAPARIN NA (PORCINE) 40 MG/0.4 ML DISP.SYRIN SQ SCH (09:30)
[2022-04-12] MEDS: ASPIRIN COATED 81 MG TABLET.EC PO SCH (09:30)
[2022-04-12] MEDS: MONTELUKAST NA 10 MG TABLET PO SCH (09:30)
[2022-04-12] MEDS: POLYETHYLENE GLYCOL (HEALTHYLAX) 3350 17 GM PACKET PO SCH ×2 (09:30→21:14)
[2022-04-12] MEDS: MOMETASONE FUROATE 220 MCG/IH INHALER IH SCH (18:50)
[2022-04-12] MEDS ORDERED: ONDANSETRON 4 MG/2 ML VIAL IVPUSH ONE (20:59)
[2022-04-12] MEDS: ATORVASTATIN CA 40 MG TABLET (FP) PO SCH (21:14)
[2022-04-12] MEDS: MIRTAZAPINE 15 MG TABLET (FP) PO SCH (21:14)
[2022-04-13] MEDS: INSULIN SLIDING SCALE (NOVOLOG) 1 VIAL SQ SCH ×4 (06:08→21:40)
[2022-04-13] MEDS: ENOXAPARIN NA (PORCINE) 40 MG/0.4 ML DISP.SYRIN SQ SCH (11:07)
[2022-04-13] MEDS: ASPIRIN COATED 81 MG TABLET.EC PO SCH (11:07)
[2022-04-13] MEDS: POLYETHYLENE GLYCOL (HEALTHYLAX) 3350 17 GM PACKET PO SCH ×2 (11:07→21:35)
[2022-04-13] MEDS: MONTELUKAST NA 10 MG TABLET PO SCH (11:07)
[2022-04-13 11:09] VITALS: BMI 25.4
[2022-04-13] MEDS: NIFEdipine E.R 60 MG TABLET PO SCH (12:11)
[2022-04-13] MEDS: LISINOPRIL 10 MG TABLET PO SCH (12:11)
[2022-04-13 14:41] LABS: HEMATOCRIT 24.6 % (32.4-45.2); HEMOGLOBIN 8.4 GM/dL (10.7-15.3); MCH 28.7 pg (25.7-33.7); MCHC 34.1 g/dl (32.0-36.0); MEAN CELL VOLUME 84.1 fl (80-96); MEAN PLT VOLUME 7.4 fl (7.5-11.1); PLATELET COUNT 386 10^3/uL (134-434); RBC 2.92 M/mm3 (3.60-5.2); RDW 13.6 % (11.6-15.6); WHITE BLOOD COUNT 6.4 K/mm3 (4.0-10.0)
[2022-04-13 15:09] LABS: ALBUMIN 2.3 g/dl (3.4-5.0); BLOOD UREA NITROGEN 33.9 mg/dL (7-18)
[2022-04-13 15:12] LABS: CREATININE 1.7 mg/dL (0.55-1.3)
[2022-04-13 15:14] LABS: BILIRUBIN,TOTAL 0.2 mg/dL (0.2-1); TOT PROT 5.5 g/dl (6.4-8.2)
[2022-04-13] MEDS: MOMETASONE FUROATE 220 MCG/IH INHALER IH SCH (17:04)
[2022-04-13 17:50] LABS: EPI CELLS 30 /uL (0-25.1); HYALINE CASTS 2 /uL (0-3.1); PH,URINE 5.5 (5.0-8.0); URINE APPEARANCE CLEAR; URINE BACTERIA 251 /uL (0-1359); URINE BILIRUBIN NEGATIVE (NEGATIVE); URINE COLOR YELLOW; URINE GLUCOSE (UA) 1+ (NEGATIVE); URINE KETONE NEGATIVE (NEGATIVE); URINE LEUK ESTERASE NEGATIVE (NEGATIVE); URINE NITRITE NEGATIVE (NEGATIVE); URINE PROTEIN 3+ (NEGATIVE); URINE UROBILINOGEN 0.2 mg/dL (0.2-1.0); URINE WBC 16 /uL (0-25.8)
[2022-04-13 18:04] LABS: URINE RBC 44.2 /uL (0-23.9)
[2022-04-13] MEDS: LACTATED RINGERS SOLUTION 1,000 ML/1,000 ML INFUS.BAG IV SCH (18:04)
[2022-04-13] MEDS: ATORVASTATIN CA 40 MG TABLET (FP) PO SCH (21:35)
[2022-04-13] MEDS: MIRTAZAPINE 15 MG TABLET (FP) PO SCH (21:35)
[2022-04-14] MEDS: INSULIN SLIDING SCALE (NOVOLOG) 1 VIAL SQ SCH ×4 (06:19→21:48)
[2022-04-14] MEDS ORDERED: MAGNESIUM HYDROX 2400MG/30ML ORAL SUSPENSION 30 ML CUP PO PRN ×2 (07:38→22:15)
[2022-04-14 09:02] LABS: HEMATOCRIT 25.9 % (32.4-45.2); HEMOGLOBIN 8.8 GM/dL (10.7-15.3); MCH 28.9 pg (25.7-33.7); MCHC 34.1 g/dl (32.0-36.0); MEAN CELL VOLUME 84.8 fl (80-96); MEAN PLT VOLUME 7.7 fl (7.5-11.1); PLATELET COUNT 418 10^3/uL (134-434); RBC 3.05 M/mm3 (3.60-5.2); RDW 13.6 % (11.6-15.6); WHITE BLOOD COUNT 6.2 K/mm3 (4.0-10.0)
[2022-04-14 09:17] LABS: CALCIUM 8.3 mg/dL (8.5-10.1)
[2022-04-14 09:18] LABS: ALBUMIN 2.5 g/dl (3.4-5.0); BLOOD UREA NITROGEN 36.2 mg/dL (7-18)
[2022-04-14 09:21] LABS: CREATININE 1.6 mg/dL (0.55-1.3)
[2022-04-14 09:22] LABS: BILIRUBIN,TOTAL 0.1 mg/dL (0.2-1); TOT PROT 5.9 g/dl (6.4-8.2)
[2022-04-14] MEDS: ASPIRIN COATED 81 MG TABLET.EC PO SCH (09:59)
[2022-04-14] MEDS: MONTELUKAST NA 10 MG TABLET PO SCH (09:59)
[2022-04-14] MEDS: NIFEdipine E.R 60 MG TABLET PO SCH (09:59)
[2022-04-14] MEDS: ENOXAPARIN NA (PORCINE) 40 MG/0.4 ML DISP.SYRIN SQ SCH (09:59)
[2022-04-14] MEDS: LISINOPRIL 10 MG TABLET PO SCH (09:59)
[2022-04-14] MEDS ORDERED: BISACODYL 10 MG SUPP.RECT PR ONE (11:25)
[2022-04-14] MEDS: POLYETHYLENE GLYCOL (HEALTHYLAX) 3350 17 GM PACKET PO SCH ×2 (14:24→21:21)
[2022-04-14] MEDS: LACTATED RINGERS SOLUTION 1,000 ML/1,000 ML INFUS.BAG IV SCH (17:20)
[2022-04-14] MEDS: MOMETASONE FUROATE 220 MCG/IH INHALER IH SCH (17:43)
[2022-04-14] MEDS: ATORVASTATIN CA 40 MG TABLET (FP) PO SCH (21:21)
[2022-04-14] MEDS: MIRTAZAPINE 15 MG TABLET (FP) PO SCH (21:21)
[2022-04-14] MEDS ORDERED: LACTATED RINGERS SOLUTION 1,000 ML/1,000 ML INFUS.BAG IV SCH (22:15)
[2022-04-15] MEDS: POLYETHYLENE GLYCOL (HEALTHYLAX) 3350 17 GM PACKET PO SCH ×2 (05:58→14:19)
[2022-04-15] MEDS: INSULIN SLIDING SCALE (NOVOLOG) 1 VIAL SQ SCH ×2 (05:59→11:57)
[2022-04-15 08:59] VITALS: RESP 19
[2022-04-15 09:24] LABS: HEMATOCRIT 25.7 % (32.4-45.2); HEMOGLOBIN 8.7 GM/dL (10.7-15.3); MCHC 33.9 g/dl (32.0-36.0); MEAN CELL VOLUME 85.5 fl (80-96); MEAN PLT VOLUME 7.2 fl (7.5-11.1); PLATELET COUNT 401 10^3/uL (134-434); RBC 3.01 M/mm3 (3.60-5.2); RDW 13.8 % (11.6-15.6); WHITE BLOOD COUNT 5.6 K/mm3 (4.0-10.0)
[2022-04-15 09:47] LABS: CALCIUM 8.5 mg/dL (8.5-10.1)
[2022-04-15 09:48] LABS: ALBUMIN 2.6 g/dl (3.4-5.0); BLOOD UREA NITROGEN 30.8 mg/dL (7-18)
[2022-04-15 09:51] LABS: CREATININE 1.5 mg/dL (0.55-1.3)
[2022-04-15 09:53] LABS: BILIRUBIN,TOTAL 0.1 mg/dL (0.2-1); TOT PROT 5.9 g/dl (6.4-8.2)
[2022-04-15] MEDS ORDERED: NIFEdipine E.R 60 MG TABLET PO SCH (10:00)
[2022-04-15] MEDS ORDERED: ENOXAPARIN NA (PORCINE) 40 MG/0.4 ML DISP.SYRIN SQ SCH (10:00)
[2022-04-15] MEDS ORDERED: ASPIRIN COATED 81 MG TABLET.EC PO SCH (10:00)
[2022-04-15] MEDS ORDERED: LISINOPRIL 10 MG TABLET PO SCH (10:00)
[2022-04-15] MEDS ORDERED: MONTELUKAST NA 10 MG TABLET PO SCH (10:00)
[2022-04-15] MEDS ORDERED: MINERAL OIL ENEMA 133 ML ENEMA RC ONE (12:50)
[2022-04-15] MEDS ORDERED: SODIUM ZIRCONIUM CYCLOSILICATE (LOKELMA) 5 GM PACKET PO SCH (13:00)
[2022-04-15] MEDS ORDERED: DOCUSATE SODIUM 100 MG CAPSULE (FP) PO SCH (14:00)
[2022-04-15 15:33] VITALS: BP 131/76; PULSE 74; TEMP 98.2
[2022-04-15] MEDS ORDERED: MOMETASONE FUROATE 220 MCG/IH INHALER IH SCH (18:00)
[2022-04-15] MEDS ORDERED: MIRTAZAPINE 15 MG TABLET (FP) PO SCH (22:00)
[2022-04-15] MEDS ORDERED: ATORVASTATIN CA 40 MG TABLET (FP) PO SCH (22:00)
== END 2022-04-15 15:57 | disposition home or self-care (01) ==
LOC: JER 16:38 → INTOOBSV 18:58 → JERBED 18:58 → J4W 04-12 15:44 → J5S 04-14 21:59
PROVIDERS: ADMIT Internal Medicine; ATTEND Internal Medicine
PROC: 3E033NZ Introduction of Analgesics, Hypnotics, Sedatives into Peripheral Vein, Percutaneous Approach (ICD-10-PCS; principal; 2022-04-11)
PROC: 3E023GC Introduction of Other Therapeutic Substance into Muscle, Percutaneous Approach (ICD-10-PCS; 2022-04-11)
PROC: 3E033GC Introduction of Other Therapeutic Substance into Peripheral Vein, Percutaneous Approach (ICD-10-PCS; 2022-04-11)
PROC: 3E0337Z Introduction of Electrolytic and Water Balance Substance into Peripheral Vein, Percutaneous Approach (ICD-10-PCS; 2022-04-11)
DX: I12.9 Hypertensive chronic kidney disease with stage 1 through stage 4 chronic kidney disease, or unspecified chronic kidney disease (principal); N17.9 Acute kidney failure, unspecified; E10.10 Type 1 diabetes mellitus with ketoacidosis without coma; N18.9 Chronic kidney disease, unspecified; D64.9 Anemia, unspecified; K59.00 Constipation, unspecified; J45.909 Unspecified asthma, uncomplicated; R11.0 Nausea; R42 Dizziness and giddiness
CPT/HCPCS: 0241U-QW; 36415; 70450-TC; 70551-TC; 71045-TC-FY; 74019-TC-FY; 74176-TC; 76775-TC; 80053; 80061; 81003; 82550; 82570; 82728; 82962; 83036; 83540; 83550; 83605; 83690; 83735; 84100; 84156; 84439; 84443; 84484; 85025; 85027; 85045; 85610; 85730; 86850; 86900; 86901; 93005; 93010; 93306-TC; 93880-TC; 93971-TC; 96361; 96372; 96374; 96375; 96376; 99285-25; G0378

== ENCOUNTER 2022-04-22 10:04 | Inpatient (IN) | payer OTHER ==
[2022-04-22] MEDS ORDERED: ONDANSETRON 4 MG/2 ML VIAL IVPB ONE ×2 (10:40→12:10)
[2022-04-22] MEDS ORDERED: ONDANSETRON 4 MG/2 ML VIAL ONE ×2 (10:48→12:12)
[2022-04-22] MEDS: SODIUM CHLORIDE 1,000 ML IV SCH (11:06)
[2022-04-22 11:35] LABS: VENOUS BASE EXCESS -0.3 mmol/L (-2-2); VENOUS O2 SATURATION 40.7 % (70-80); VENOUS PCO2 49.5 mmHg (38-52); VENOUS PH 7.335 (7.310-7.410)
[2022-04-22 11:41] LABS: EOS % 0.8 % (0-4.5); HEMATOCRIT 26.9 % (32.4-45.2); HEMOGLOBIN 9.2 GM/dL (10.7-15.3); LYMPH % 13.8 % (8-40); MCH 29.3 pg (25.7-33.7); MCHC 34.3 g/dl (32.0-36.0); MEAN CELL VOLUME 85.5 fl (80-96); MEAN PLT VOLUME 7.5 fl (7.5-11.1); MONO % 7.8 % (3.8-10.2); NEUT % 76.6 % (42.8-82.8); PLATELET COUNT 433 10^3/uL (134-434); RBC 3.15 M/mm3 (3.60-5.2); RDW 13.7 % (11.6-15.6); WHITE BLOOD COUNT 6.1 K/mm3 (4.0-10.0)
[2022-04-22 11:52] LABS: INR 1.08 (0.83-1.09); PROTHROMBIN TIME (PATIENT) 12.4 SEC (9.7-13.0)
[2022-04-22 11:55] LABS: ACTIVATED PTT 35.8 SECONDS (25.2-36.5)
[2022-04-22 11:58] LABS: CALCIUM 8.4 mg/dL (8.5-10.1)
[2022-04-22 12:00] LABS: ALBUMIN 2.8 g/dl (3.4-5.0); BLOOD UREA NITROGEN 29.8 mg/dL (7-18)
[2022-04-22 12:01] LABS: LIPASE 108 U/L (73-393)
[2022-04-22 12:02] LABS: CREATININE 1.5 mg/dL (0.55-1.3)
[2022-04-22 12:03] LABS: TOT PROT 6.3 g/dl (6.4-8.2)
[2022-04-22 12:04] LABS: BILIRUBIN,TOTAL 0.2 mg/dL (0.2-1)
[2022-04-22 13:13] LABS: EPI CELLS 9 /uL (0-25.1); HYALINE CASTS 0 /uL (0-3.1); URINE APPEARANCE CLEAR; URINE BACTERIA 89 /uL (0-1359); URINE BILIRUBIN NEGATIVE (NEGATIVE); URINE COLOR YELLOW; URINE GLUCOSE (UA) 1+ (NEGATIVE); URINE KETONE NEGATIVE (NEGATIVE); URINE LEUK ESTERASE NEGATIVE (NEGATIVE); URINE NITRITE NEGATIVE (NEGATIVE); URINE PROTEIN 3+ (NEGATIVE); URINE UROBILINOGEN 0.2 mg/dL (0.2-1.0); URINE WBC 4 /uL (0-25.8)
[2022-04-22 13:41] LABS: URINE RBC 55 /uL (0-23.9); YEAST NEGATIVE (NEGATIVE)
[2022-04-22] MEDS ORDERED: ACETAMINOPHEN 1000 MG/100 ML BAG IVPB PRN (14:33)
[2022-04-22] MEDS ORDERED: ACETAMINOPHEN INJECTION 100 ML IVPB ONE (15:53)
[2022-04-22] MEDS ORDERED: ASPIRIN COATED 81 MG TABLET.EC ONE (15:53)
[2022-04-22] MEDS ORDERED: PANTOPRAZOLE SODIUM 40 MG VIAL ONE (15:54)
[2022-04-22] MEDS: ASPIRIN COATED 81 MG TABLET.EC PO SCH (15:55)
[2022-04-22] MEDS: PANTOPRAZOLE SODIUM 40 MG VIAL IVPUSH SCH (15:55)
[2022-04-22] MEDS: INSULIN SLIDING SCALE (NOVOLOG) 1 VIAL SQ SCH ×2 (17:52→22:32)
[2022-04-22] MEDS ORDERED: SODIUM ZIRCONIUM CYCLOSILICATE (LOKELMA) 5 GM PACKET PO ONE (17:57)
[2022-04-22] MEDS ORDERED: SODIUM ZIRCONIUM CYCLOSILICATE (LOKELMA) 5 GM PACKET ONE (18:14)
[2022-04-22] MEDS: HEPARIN NA (PORCINE) 5,000 UNITS/ML 1ML VIAL SQ SCH (22:24)
[2022-04-22] MEDS: ATORVASTATIN CA 40 MG TABLET (FP) PO SCH (22:24)
[2022-04-22] MEDS: INSULIN (LEVEMIR) 100 UNITS/ML UNITS SQ SCH (22:32)
[2022-04-23 03:46] VITALS: BMI 25.0
[2022-04-23] MEDS: INSULIN SLIDING SCALE (NOVOLOG) 1 VIAL SQ SCH ×4 (06:22→21:43)
[2022-04-23] MEDS: HEPARIN NA (PORCINE) 5,000 UNITS/ML 1ML VIAL SQ SCH ×3 (06:22→21:43)
[2022-04-23] MEDS: PROCHLORPERAZINE INJECTION 10 MG/2 ML VIAL IVPB PRN ×2 (06:22→23:19)
[2022-04-23] MEDS: INSULIN (LEVEMIR) 100 UNITS/ML UNITS SQ SCH ×2 (06:25→21:43)
[2022-04-23 08:16] LABS: HEMOGLOBIN 7.8 GM/dL (10.7-15.3); MCH 29.1 pg (25.7-33.7); MCHC 33.8 g/dl (32.0-36.0); MEAN CELL VOLUME 86.1 fl (80-96); MEAN PLT VOLUME 8.1 fl (7.5-11.1); PLATELET COUNT 365 10^3/uL (134-434); RBC 2.67 M/mm3 (3.60-5.2); RDW 13.9 % (11.6-15.6); WHITE BLOOD COUNT 5.3 K/mm3 (4.0-10.0)
[2022-04-23 08:42] LABS: BLOOD UREA NITROGEN 24.8 mg/dL (7-18); MAGNESIUM 2.3 mg/dL (1.8-2.4)
[2022-04-23 08:45] LABS: CREATININE 1.5 mg/dL (0.55-1.3); PHOSPHOROUS 3.9 mg/dL (2.5-4.9)
[2022-04-23] MEDS: LISINOPRIL 10 MG TABLET PO SCH (09:46)
[2022-04-23] MEDS: PANTOPRAZOLE SODIUM 40 MG VIAL IVPUSH SCH (09:46)
[2022-04-23] MEDS: NIFEdipine E.R 60 MG TABLET PO SCH (09:46)
[2022-04-23] MEDS: ASPIRIN COATED 81 MG TABLET.EC PO SCH (09:46)
[2022-04-23] MEDS: SODIUM CHLORIDE 1,000 ML IV SCH (09:47)
[2022-04-23] MEDS ORDERED: CLOPIDOGREL BISULFATE 75 MG TABLET (FP) PO SCH (10:00)
[2022-04-23] MEDS ORDERED: MECLIZINE HCL 12.5 MG TABLET PO PRN (15:36)
[2022-04-23] MEDS: ATORVASTATIN CA 40 MG TABLET (FP) PO SCH (21:43)
[2022-04-24 07:09] VITALS: PULSE 66; RESP 18
[2022-04-24] MEDS: HEPARIN NA (PORCINE) 5,000 UNITS/ML 1ML VIAL SQ SCH ×2 (07:14→14:55)
[2022-04-24] MEDS: PROCHLORPERAZINE INJECTION 10 MG/2 ML VIAL IVPB PRN (07:14)
[2022-04-24] MEDS: INSULIN SLIDING SCALE (NOVOLOG) 1 VIAL SQ SCH ×2 (07:15→12:36)
[2022-04-24] MEDS: INSULIN (LEVEMIR) 100 UNITS/ML UNITS SQ SCH (07:15)
[2022-04-24] MEDS: SODIUM CHLORIDE 1,000 ML IV SCH ×2 (07:22→09:37)
[2022-04-24 08:45] LABS: HEMATOCRIT 25.2 % (32.4-45.2); HEMOGLOBIN 8.4 GM/dL (10.7-15.3); MCH 28.5 pg (25.7-33.7); MCHC 33.4 g/dl (32.0-36.0); MEAN CELL VOLUME 85.2 fl (80-96); MEAN PLT VOLUME 7.8 fl (7.5-11.1); PLATELET COUNT 430 10^3/uL (134-434); RBC 2.96 M/mm3 (3.60-5.2); RDW 13.5 % (11.6-15.6); WHITE BLOOD COUNT 5.9 K/mm3 (4.0-10.0)
[2022-04-24 09:13] LABS: ALBUMIN 2.6 g/dl (3.4-5.0)
[2022-04-24 09:15] LABS: BLOOD UREA NITROGEN 25.4 mg/dL (7-18); CALCIUM 8.4 mg/dL (8.5-10.1)
[2022-04-24 09:16] LABS: CREATININE 1.5 mg/dL (0.55-1.3)
[2022-04-24 09:18] LABS: BILIRUBIN,TOTAL 0.2 mg/dL (0.2-1)
[2022-04-24 09:21] LABS: TOT PROT 6.1 g/dl (6.4-8.2)
[2022-04-24 09:25] VITALS: BP 134/65; TEMP 98.5
[2022-04-24] MEDS: PANTOPRAZOLE SODIUM 40 MG VIAL IVPUSH SCH (09:36)
[2022-04-24] MEDS: ASPIRIN COATED 81 MG TABLET.EC PO SCH (09:37)
[2022-04-24] MEDS: NIFEdipine E.R 60 MG TABLET PO SCH (09:37)
[2022-04-24] MEDS: LISINOPRIL 10 MG TABLET PO SCH (09:37)
[2022-04-24] MEDS ORDERED: CLOPIDOGREL BISULFATE 75 MG TABLET (FP) PO SCH (13:45)
== END 2022-04-24 15:55 | disposition home or self-care (01) | DRG 69 ==
LOC: JER 10:04 → JERBED 13:11 → J4W 20:01
PROVIDERS: ADMIT Internal Medicine; ATTEND Internal Medicine
DX: G45.9 Transient cerebral ischemic attack, unspecified (principal); J98.11 Atelectasis; E78.5 Hyperlipidemia, unspecified; Z79.4 Long term (current) use of insulin; E11.22 Type 2 diabetes mellitus with diabetic chronic kidney disease; I12.9 Hypertensive chronic kidney disease with stage 1 through stage 4 chronic kidney disease, or unspecified chronic kidney disease; N18.9 Chronic kidney disease, unspecified; D64.9 Anemia, unspecified; E11.319 Type 2 diabetes mellitus with unspecified diabetic retinopathy without macular edema; E11.40 Type 2 diabetes mellitus with diabetic neuropathy, unspecified; K59.09 Other constipation; J45.909 Unspecified asthma, uncomplicated; R29.810 Facial weakness; E87.5 Hyperkalemia; R42 Dizziness and giddiness; R11.2 Nausea with vomiting, unspecified; E11.65 Type 2 diabetes mellitus with hyperglycemia
CPT/HCPCS: 36415; 70450-TC; 70496-TC; 70498-TC; 70551-TC; 71045-TC-FY; 73502-TC-LT-FY; 73502-TC-RT-FY; 73560-TC-LT-FY; 73560-TC-RT-FY; 74176-TC; 80048; 80053; 80061; 80307; 81003; 82010; 82550; 82553; 82803; 82962; 83036; 83605; 83690; 83735; 84100; 84443; 84484; 85025; 85027; 85610; 85730; 86850; 86900; 86901; 93005; 93010; 93970-TC; 97116-GP; 97162-GP; 99285-25; C9803-CS; J1644; Q9967; U0003; U0005

== ENCOUNTER 2022-06-23 04:50 | Day surgery (SDC) | payer OTHER ==
[2022-06-18 14:05] VITALS: BMI 25.1
[2022-06-23 08:30] VITALS: RESP 18
[2022-06-23 11:55] VITALS: BP 139/79; PULSE 66; TEMP 98
== END 2022-06-23 11:55 | disposition home or self-care (01) ==
LOC: JASU-ENDO 04:50
PROVIDERS: ATTEND Student in an Organized Health Care Education/Training Program
PROC: 0DBH8ZX Excision of Cecum, Via Natural or Artificial Opening Endoscopic, Diagnostic (ICD-10-PCS; 2022-06-23)
PROC: 0DB48ZX Excision of Esophagogastric Junction, Via Natural or Artificial Opening Endoscopic, Diagnostic (ICD-10-PCS; 2022-06-23)
PROC: 0DB78ZX Excision of Stomach, Pylorus, Via Natural or Artificial Opening Endoscopic, Diagnostic (ICD-10-PCS; 2022-06-23)
PROC: 0DB68ZX Excision of Stomach, Via Natural or Artificial Opening Endoscopic, Diagnostic (ICD-10-PCS; 2022-06-23)
PROC: 0DBL8ZX Excision of Transverse Colon, Via Natural or Artificial Opening Endoscopic, Diagnostic (ICD-10-PCS; principal; 2022-06-23 08:30)
DX: D12.0 Benign neoplasm of cecum (principal); D12.3 Benign neoplasm of transverse colon; K20.90 Esophagitis, unspecified without bleeding; K29.50 Unspecified chronic gastritis without bleeding; K31.9 Disease of stomach and duodenum, unspecified
CPT/HCPCS: 36415; 82947; 82962; 88305-TC; 88342-TC

== ENCOUNTER 2022-07-15 14:51 | Emergency (ER) | payer OTHER ==
[2022-07-15 17:17] VITALS: BP 119/62; PULSE 66; RESP 20; TEMP 99.8; BMI 24.1
[2022-07-15] MEDS ORDERED: MAG HYDROX/AL HYDROX/SIMETH -MYLANTA- ORAL SUSPENSION PO ONE (17:54)
[2022-07-15] MEDS ORDERED: KETOROLAC TROMETHAMINE 15 MG/ML VIAL IM ONE (17:55)
[2022-07-15] MEDS ORDERED: SODIUM CHLORIDE 500 ML IV STA ×2 (17:56→20:07)
[2022-07-15] MEDS ORDERED: ONDANSETRON 4 MG/2 ML VIAL IVPUSH ONE (17:56)
[2022-07-15] MEDS ORDERED: ONDANSETRON 4 MG/2 ML VIAL ONE (18:10)
[2022-07-15] MEDS ORDERED: KETOROLAC TROMETHAMINE 15 MG/ML VIAL ONE (18:10)
[2022-07-15] MEDS ORDERED: MAG HYDROX/AL HYDROX/SIMETH 30 ML UNIT-DOSE CUP ONE (18:10)
[2022-07-15 19:18] LABS: BASO % 0.5 % (0-2.0); HEMATOCRIT 29.1 % (32.4-45.2); HEMOGLOBIN 9.6 GM/dL (10.7-15.3); MCH 27.9 pg (25.7-33.7); MCHC 32.9 g/dl (32.0-36.0); MEAN CELL VOLUME 84.7 fl (80-96); MEAN PLT VOLUME 7.8 fl (7.5-11.1); MONO % 11.5 % (3.8-10.2); PLATELET COUNT 334 10^3/uL (134-434); RBC 3.44 M/mm3 (3.60-5.2); RDW 12.3 % (11.6-15.6); WHITE BLOOD COUNT 6.6 K/mm3 (4.0-10.0)
[2022-07-15 19:35] LABS: ALBUMIN 2.5 g/dl (3.4-5.0); BLOOD UREA NITROGEN 37.7 mg/dL (7-18); CALCIUM 8.2 mg/dL (8.5-10.1)
[2022-07-15 19:38] LABS: CREATININE 2.1 mg/dL (0.55-1.3)
[2022-07-15 19:40] LABS: BILIRUBIN,TOTAL 0.3 mg/dL (0.2-1); TOT PROT 6.6 g/dl (6.4-8.2)
[2022-07-15 19:48] LABS: VENOUS BASE EXCESS -4.7 mmol/L (-2-2); VENOUS O2 SATURATION 43.8 % (70-80); VENOUS PCO2 40.9 mmHg (38-52); VENOUS PH 7.327 (7.310-7.410)
== END 2022-07-15 21:55 | disposition home or self-care (01) ==
LOC: JER 14:51
PROC: 3E0233Z Introduction of Anti-inflammatory into Muscle, Percutaneous Approach (ICD-10-PCS; principal; 2022-07-15)
PROC: 3E033GC Introduction of Other Therapeutic Substance into Peripheral Vein, Percutaneous Approach (ICD-10-PCS; 2022-07-15)
PROC: 3E0337Z Introduction of Electrolytic and Water Balance Substance into Peripheral Vein, Percutaneous Approach (ICD-10-PCS; 2022-07-15)
PROC: 3E0337Z Introduction of Electrolytic and Water Balance Substance into Peripheral Vein, Percutaneous Approach (ICD-10-PCS; 2022-07-15)
DX: J09.X2 Influenza due to identified novel influenza A virus with other respiratory manifestations (principal)
CPT/HCPCS: 0241U-QW; 36415; 71046-TC-FY; 74176-TC; 80053; 82550; 82803; 83605; 83690; 84484; 85025; 93005; 93010; 99285-25

== ENCOUNTER 2022-09-14 09:52 | Emergency (ER) | payer OTHER ==
[2022-09-14 10:08] VITALS: PULSE 69; BMI 25.0
[2022-09-14] MEDS ORDERED: SODIUM CHLORIDE 0.9% 500 ML INFUS.BAG IV ONE (11:01)
[2022-09-14] MEDS ORDERED: FAMOTIDINE 20 MG/50 ML IVPB 20 MG/50 ML MG IVPB ONE ×2 (11:01→11:27)
[2022-09-14] MEDS ORDERED: ONDANSETRON 4 MG/2 ML VIAL IVPUSH ONE (11:01)
[2022-09-14 11:27] LABS: VENOUS BASE EXCESS -3.7 mmol/L (-2-2); VENOUS O2 SATURATION 27.8 % (70-80); VENOUS PCO2 48.8 mmHg (38-52); VENOUS PH 7.288 (7.310-7.410)
[2022-09-14] MEDS ORDERED: ONDANSETRON 4 MG/2 ML VIAL ONE (11:27)
[2022-09-14 11:34] LABS: BASO % 1.3 % (0-2.0); EOS % 2.2 % (0-4.5); HEMATOCRIT 25.9 % (32.4-45.2); LYMPH % 19.1 % (8-40); MCH 29.2 pg (25.7-33.7); MCHC 34.6 g/dl (32.0-36.0); MEAN CELL VOLUME 84.5 fl (80-96); MEAN PLT VOLUME 7.7 fl (7.5-11.1); MONO % 9.4 % (3.8-10.2); PLATELET COUNT 395 10^3/uL (134-434); RBC 3.06 M/mm3 (3.60-5.2); RDW 13.2 % (11.6-15.6); WHITE BLOOD COUNT 5.5 K/mm3 (4.0-10.0)
[2022-09-14 11:36] LABS: EPI CELLS 17 /uL (0-25.1); HYALINE CASTS 2 /uL (0-3.1); PH,URINE 6.5 (5.0-8.0); URINE APPEARANCE CLEAR; URINE BACTERIA 86 /uL (0-1359); URINE BILIRUBIN NEGATIVE (NEGATIVE); URINE COLOR YELLOW; URINE GLUCOSE (UA) 2+ (NEGATIVE); URINE KETONE NEGATIVE (NEGATIVE); URINE LEUK ESTERASE NEGATIVE (NEGATIVE); URINE NITRITE NEGATIVE (NEGATIVE); URINE PROTEIN 4+ (NEGATIVE); URINE RBC 47 /uL (0-23.9); URINE UROBILINOGEN 0.2 mg/dL (0.2-1.0); URINE WBC 16 /uL (0-25.8)
[2022-09-14 12:01] LABS: CALCIUM 8.5 mg/dL (8.5-10.1)
[2022-09-14 12:02] LABS: ALBUMIN 2.6 g/dl (3.4-5.0); BLOOD UREA NITROGEN 40.4 mg/dL (7-18)
[2022-09-14 12:05] LABS: CREATININE 1.7 mg/dL (0.55-1.3)
[2022-09-14 12:07] LABS: BILIRUBIN,TOTAL 0.2 mg/dL (0.2-1)
[2022-09-14 12:10] LABS: TOT PROT 6.3 g/dl (6.4-8.2)
[2022-09-14] MEDS ORDERED: METOCLOPRAMIDE HCL INJECTION 10 MG/2 ML VIAL IVPB ONE (15:04)
[2022-09-14] MEDS ORDERED: METOCLOPRAMIDE HCL INJECTION 10 MG/2 ML VIAL ONE (15:16)
[2022-09-14 15:27] VITALS: BP 127/58; RESP 18; TEMP 97.6
== END 2022-09-14 16:44 | disposition home or self-care (01) ==
LOC: JER 09:52
PROC: 3E033GC Introduction of Other Therapeutic Substance into Peripheral Vein, Percutaneous Approach (ICD-10-PCS; principal; 2022-09-14)
PROC: 3E033GC Introduction of Other Therapeutic Substance into Peripheral Vein, Percutaneous Approach (ICD-10-PCS; 2022-09-14)
PROC: 3E033GC Introduction of Other Therapeutic Substance into Peripheral Vein, Percutaneous Approach (ICD-10-PCS; 2022-09-14)
DX: N39.0 Urinary tract infection, site not specified (principal); R11.2 Nausea with vomiting, unspecified
CPT/HCPCS: 36415; 71045-TC-FY; 74176-TC; 80053; 81003; 82803; 82962; 83605; 83690; 83735; 84484; 85025; 87086; 93005; 93010; 96374; 96375; 99285-25

== ENCOUNTER 2022-11-03 03:58 | Day surgery (SDC) | payer MEDICARE, OTHER ==
[2022-11-02 18:08] VITALS: BMI 25.7
[2022-11-03] MEDS ORDERED: MIDAZOLAM HCL 2 MG/2 ML SINGLE DOSE VIAL ONE (12:55)
[2022-11-03] MEDS ORDERED: FENTANYL CITRATE/PF 50 MCG/ML VIAL ONE (12:56)
[2022-11-03] MEDS ORDERED: MIDAZOLAM HCL 2 MG/2 ML SINGLE DOSE VIAL IVPUSH ONE ×2 (13:05→13:15)
[2022-11-03 14:39] VITALS: RESP 16
[2022-11-03 17:40] VITALS: BP 150/68; PULSE 67; TEMP 97.3
== END 2022-11-03 18:20 | disposition home or self-care (01) ==
LOC: JRADIR 03:58
PROVIDERS: ATTEND Internal Medicine
PROC: 0TB03ZX Excision of Right Kidney, Percutaneous Approach, Diagnostic (ICD-10-PCS; principal; 2022-11-03)
DX: E11.22 Type 2 diabetes mellitus with diabetic chronic kidney disease (principal); I12.9 Hypertensive chronic kidney disease with stage 1 through stage 4 chronic kidney disease, or unspecified chronic kidney disease; N18.9 Chronic kidney disease, unspecified; N17.9 Acute kidney failure, unspecified
CPT/HCPCS: 50200; 76775-TC; 88300-TC; 88329

== ENCOUNTER 2023-01-22 11:06 | Inpatient (IN) | payer MEDICARE, OTHER ==
[2023-01-22 11:16] VITALS: BMI 26.2
[2023-01-22] MEDS ORDERED: ONDANSETRON 4 MG/2 ML VIAL IVPUSH ONE (12:21)
[2023-01-22 12:25] LABS: BASO % 1.3 % (0-2.0); EOS % 2.6 % (0-4.5); HEMATOCRIT 27.2 % (32.4-45.2); MCH 28.1 pg (25.7-33.7); MEAN CELL VOLUME 85.1 fl (80-96); MEAN PLT VOLUME 7.9 fl (7.5-11.1); MONO % 9.2 % (3.8-10.2); NEUT % 65.9 % (42.8-82.8); PLATELET COUNT 405 10^3/uL (134-434); RDW 12.9 % (11.6-15.6); WHITE BLOOD COUNT 6.2 K/mm3 (4.0-10.0)
[2023-01-22] MEDS ORDERED: ONDANSETRON 4 MG/2 ML VIAL ONE (12:30)
[2023-01-22 12:33] LABS: INR 1.13 (0.83-1.09); PROTHROMBIN TIME (PATIENT) 13.1 SEC (9.7-13.0)
[2023-01-22 12:35] LABS: ACTIVATED PTT 37.2 SECONDS (25.2-36.5)
[2023-01-22 12:47] LABS: POTASSIUM 5.4 mmol/L (3.5-5.1)
[2023-01-22 12:49] LABS: CALCIUM 8.8 mg/dL (8.5-10.1)
[2023-01-22 12:50] LABS: MAGNESIUM 2.4 mg/dL (1.8-2.4)
[2023-01-22 12:52] LABS: ALBUMIN 2.6 g/dl (3.4-5.0); BLOOD UREA NITROGEN 43.9 mg/dL (7-18)
[2023-01-22 12:53] LABS: CREATININE 2.6 mg/dL (0.55-1.3)
[2023-01-22 12:55] LABS: TOT PROT 6.4 g/dl (6.4-8.2)
[2023-01-22 12:56] LABS: BILIRUBIN,TOTAL 0.2 mg/dL (0.2-1)
[2023-01-22] MEDS ORDERED: SODIUM ZIRCONIUM CYCLOSILICATE (LOKELMA) 5 GM PACKET PO ONE (12:58)
[2023-01-22] MEDS ORDERED: SODIUM CHLORIDE 1,000 ML IV STA (12:58)
[2023-01-22] MEDS ORDERED: SODIUM ZIRCONIUM CYCLOSILICATE (LOKELMA) 5 GM PACKET ONE (13:05)
[2023-01-22 15:14] LABS: EPI CELLS 15 /uL (0-25.1); HYALINE CASTS 0 /uL (0-3.1); URINE APPEARANCE CLEAR; URINE BACTERIA 146 /uL (0-1359); URINE BILIRUBIN NEGATIVE (NEGATIVE); URINE COLOR YELLOW; URINE GLUCOSE (UA) TRACE (NEGATIVE); URINE KETONE NEGATIVE (NEGATIVE); URINE LEUK ESTERASE NEGATIVE (NEGATIVE); URINE NITRITE NEGATIVE (NEGATIVE); URINE PROTEIN 3+ (NEGATIVE); URINE RBC 25 /uL (0-23.9); URINE UROBILINOGEN 0.2 mg/dL (0.2-1.0); URINE WBC 4 /uL (0-25.8)
[2023-01-22] MEDS: SODIUM CHLORIDE 0.45% 1,000 ML IV SCH (16:19)
[2023-01-22 16:35] LABS: BLOOD UREA NITROGEN 48.4 mg/dL (7-18); CALCIUM 8.4 mg/dL (8.5-10.1); CREATININE 2.4 mg/dL (0.55-1.3); POTASSIUM 5.2 mmol/L (3.5-5.1)
[2023-01-22] MEDS: ATORVASTATIN CA 40 MG TABLET (FP) PO SCH (23:39)
[2023-01-22] MEDS: HEPARIN NA (PORCINE) 5,000 UNITS/ML 1ML VIAL SQ SCH (23:39)
[2023-01-23] MEDS: HEPARIN NA (PORCINE) 5,000 UNITS/ML 1ML VIAL SQ SCH (06:36)
[2023-01-23 08:32] LABS: BASO % 1.4 % (0-2.0); EOS % 3.2 % (0-4.5); HEMATOCRIT 24.9 % (32.4-45.2); HEMOGLOBIN 8.2 GM/dL (10.7-15.3); LYMPH % 23.8 % (8-40); MCH 27.8 pg (25.7-33.7); MCHC 33.1 g/dl (32.0-36.0); MEAN CELL VOLUME 83.9 fl (80-96); MEAN PLT VOLUME 7.6 fl (7.5-11.1); MONO % 9.3 % (3.8-10.2); NEUT % 62.3 % (42.8-82.8); PLATELET COUNT 344 10^3/uL (134-434); RBC 2.96 M/mm3 (3.60-5.2); WHITE BLOOD COUNT 6.2 K/mm3 (4.0-10.0)
[2023-01-23 08:53] LABS: POTASSIUM 5.4 mmol/L (3.5-5.1)
[2023-01-23 08:57] LABS: BLOOD UREA NITROGEN 46.8 mg/dL (7-18); CALCIUM 8.4 mg/dL (8.5-10.1)
[2023-01-23 08:58] LABS: ALBUMIN 2.4 g/dl (3.4-5.0); MAGNESIUM 2.1 mg/dL (1.8-2.4)
[2023-01-23 09:01] LABS: CREATININE 2.8 mg/dL (0.55-1.3); PHOSPHOROUS 4.8 mg/dL (2.5-4.9)
[2023-01-23 09:02] LABS: BILIRUBIN,TOTAL 0.2 mg/dL (0.2-1); TOT PROT 5.8 g/dl (6.4-8.2)
[2023-01-23] MEDS: SODIUM ZIRCONIUM CYCLOSILICATE (LOKELMA) 5 GM PACKET PO SCH (11:59)
[2023-01-23] MEDS: CLOPIDOGREL BISULFATE 75 MG TABLET (FP) PO SCH (11:59)
[2023-01-23] MEDS: PANTOPRAZOLE 40 MG TABLET PO SCH (12:00)
[2023-01-23] MEDS: NIFEdipine E.R 60 MG TABLET PO SCH (12:00)
[2023-01-23] MEDS: MECLIZINE HCL 25 MG TABLET (FP) PO SCH ×2 (14:57→22:47)
[2023-01-23] MEDS: SODIUM CHLORIDE 0.45% 1,000 ML IV SCH (19:38)
[2023-01-23] MEDS ORDERED: HEPARIN NA (PORCINE) 5,000 UNITS/ML 1ML VIAL SQ SCH (22:00)
[2023-01-23] MEDS: ATORVASTATIN CA 40 MG TABLET (FP) PO SCH (22:47)
[2023-01-23] MEDS: ONDANSETRON 4 MG/2 ML VIAL IVPUSH PRN (22:59)
[2023-01-24] MEDS: MECLIZINE HCL 25 MG TABLET (FP) PO SCH ×3 (06:32→21:58)
[2023-01-24] MEDS ORDERED: INSULIN (LEVEMIR) 100 UNITS/ML UNITS SQ SCH (10:00)
[2023-01-24 10:43] LABS: BASO % 1.1 % (0-2.0); EOS % 2.8 % (0-4.5); HEMATOCRIT 24.2 % (32.4-45.2); HEMOGLOBIN 8.1 GM/dL (10.7-15.3); LYMPH % 18.8 % (8-40); MCHC 33.5 g/dl (32.0-36.0); MEAN CELL VOLUME 83.6 fl (80-96); MEAN PLT VOLUME 7.7 fl (7.5-11.1); MONO % 8.8 % (3.8-10.2); NEUT % 68.5 % (42.8-82.8); PLATELET COUNT 331 10^3/uL (134-434); WHITE BLOOD COUNT 5.3 K/mm3 (4.0-10.0)
[2023-01-24 11:00] LABS: POTASSIUM 5.2 mmol/L (3.5-5.1)
[2023-01-24 11:03] LABS: CALCIUM 8.1 mg/dL (8.5-10.1)
[2023-01-24 11:04] LABS: ALBUMIN 2.4 g/dl (3.4-5.0); BLOOD UREA NITROGEN 43.8 mg/dL (7-18); MAGNESIUM 1.8 mg/dL (1.8-2.4)
[2023-01-24 11:07] LABS: CREATININE 2.5 mg/dL (0.55-1.3)
[2023-01-24 11:09] LABS: BILIRUBIN,TOTAL 0.2 mg/dL (0.2-1); TOT PROT 5.7 g/dl (6.4-8.2)
[2023-01-24] MEDS: NIFEdipine E.R 60 MG TABLET PO SCH (11:11)
[2023-01-24] MEDS: PANTOPRAZOLE 40 MG TABLET PO SCH (11:11)
[2023-01-24] MEDS: CLOPIDOGREL BISULFATE 75 MG TABLET (FP) PO SCH (11:12)
[2023-01-24] MEDS: SODIUM ZIRCONIUM CYCLOSILICATE (LOKELMA) 5 GM PACKET PO SCH (11:12)
[2023-01-24] MEDS: SODIUM CHLORIDE 0.45% 1,000 ML IV SCH (18:18)
[2023-01-24] MEDS ORDERED: MAGNESIUM HYDROX 2400MG/30ML ORAL SUSPENSION 30 ML CUP PO PRN (19:53)
[2023-01-24] MEDS: INSULIN SLIDING SCALE (NOVOLOG) 1 VIAL SQ SCH ×2 (20:15→22:00)
[2023-01-24] MEDS: ATORVASTATIN CA 40 MG TABLET (FP) PO SCH (21:57)
[2023-01-24] MEDS: POLYETHYLENE GLYCOL (HEALTHYLAX) 3350 17 GM PACKET PO SCH (21:58)
[2023-01-24] MEDS: INSULIN (LEVEMIR) 100 UNITS/ML UNITS SQ SCH (21:59)
[2023-01-24] MEDS ORDERED: INSULIN SLIDING SCALE (NOVOLOG) 1 VIAL SQ SCH (22:00)
[2023-01-25] MEDS: ONDANSETRON 4 MG/2 ML VIAL IVPUSH PRN (03:12)
[2023-01-25 06:22] VITALS: RESP 18
[2023-01-25] MEDS: MECLIZINE HCL 25 MG TABLET (FP) PO SCH ×4 (06:52→22:27)
[2023-01-25] MEDS: INSULIN (LEVEMIR) 100 UNITS/ML UNITS SQ SCH ×2 (06:52→22:34)
[2023-01-25] MEDS: INSULIN SLIDING SCALE (NOVOLOG) 1 VIAL SQ SCH ×5 (06:53→23:01)
[2023-01-25] MEDS: INSULIN (NOVOLOG) ASPART 100 UNITS/ML 10ML VIAL SQ SCH ×3 (06:53→17:05)
[2023-01-25] MEDS: CLOPIDOGREL BISULFATE 75 MG TABLET (FP) PO SCH (09:43)
[2023-01-25] MEDS: NIFEdipine E.R 60 MG TABLET PO SCH (09:43)
[2023-01-25] MEDS: PANTOPRAZOLE 40 MG TABLET PO SCH (09:43)
[2023-01-25] MEDS: POLYETHYLENE GLYCOL (HEALTHYLAX) 3350 17 GM PACKET PO SCH ×4 (09:43→22:27)
[2023-01-25 10:04] LABS: BASO % 0.8 % (0-2.0); EOS % 2.5 % (0-4.5); HEMATOCRIT 24.7 % (32.4-45.2); HEMOGLOBIN 8.2 GM/dL (10.7-15.3); LYMPH % 16.1 % (8-40); MCH 28.4 pg (25.7-33.7); MCHC 33.3 g/dl (32.0-36.0); MEAN CELL VOLUME 85.4 fl (80-96); MEAN PLT VOLUME 8.1 fl (7.5-11.1); MONO % 9.5 % (3.8-10.2); NEUT % 71.1 % (42.8-82.8); PLATELET COUNT 347 10^3/uL (134-434); RBC 2.89 M/mm3 (3.60-5.2); RDW 12.8 % (11.6-15.6); WHITE BLOOD COUNT 6.1 K/mm3 (4.0-10.0)
[2023-01-25 10:25] LABS: POTASSIUM 4.9 mmol/L (3.5-5.1)
[2023-01-25 10:31] LABS: ALBUMIN 2.4 g/dl (3.4-5.0); BLOOD UREA NITROGEN 42.5 mg/dL (7-18); CALCIUM 8.5 mg/dL (8.5-10.1); MAGNESIUM 1.9 mg/dL (1.8-2.4)
[2023-01-25 10:33] LABS: CREATININE 2.4 mg/dL (0.55-1.3)
[2023-01-25 10:35] LABS: BILIRUBIN,TOTAL 0.2 mg/dL (0.2-1)
[2023-01-25] MEDS: METOCLOPRAMIDE HCL INJECTION 10 MG/2 ML VIAL IVPUSH SCH ×2 (12:00→17:26)
[2023-01-25] MEDS: SODIUM ZIRCONIUM CYCLOSILICATE (LOKELMA) 5 GM PACKET PO SCH (12:15)
[2023-01-25] MEDS: ATORVASTATIN CA 40 MG TABLET (FP) PO SCH (22:27)
[2023-01-25] MEDS: HEPARIN NA (PORCINE) 5,000 UNITS/ML 1ML VIAL SQ SCH (22:28)
[2023-01-25] MEDS: SODIUM CHLORIDE 0.45% 1,000 ML IV SCH (22:33)
[2023-01-26] MEDS: SODIUM CHLORIDE 0.45% 1,000 ML IV SCH ×2 (00:14→15:38)
[2023-01-26] MEDS: MECLIZINE HCL 25 MG TABLET (FP) PO SCH ×2 (06:31→13:35)
[2023-01-26] MEDS: POLYETHYLENE GLYCOL (HEALTHYLAX) 3350 17 GM PACKET PO SCH ×2 (06:31→13:35)
[2023-01-26] MEDS: METOCLOPRAMIDE HCL INJECTION 10 MG/2 ML VIAL IVPUSH SCH ×3 (06:31→15:38)
[2023-01-26] MEDS: INSULIN (LEVEMIR) 100 UNITS/ML UNITS SQ SCH (06:40)
[2023-01-26] MEDS: INSULIN SLIDING SCALE (NOVOLOG) 1 VIAL SQ SCH ×2 (06:41→12:00)
[2023-01-26] MEDS ORDERED: BISACODYL 5 MG TABLET.DR (FP) PO PRN (09:12)
[2023-01-26] MEDS ORDERED: MAGNESIUM HYDROX 2400MG/30ML ORAL SUSPENSION 30 ML CUP PO PRN (09:12)
[2023-01-26 09:52] LABS: BASO % 1.3 % (0-2.0); EOS % 2.3 % (0-4.5); HEMATOCRIT 25.4 % (32.4-45.2); HEMOGLOBIN 8.7 GM/dL (10.7-15.3); LYMPH % 25.4 % (8-40); MCHC 34.3 g/dl (32.0-36.0); MEAN CELL VOLUME 84.8 fl (80-96); MEAN PLT VOLUME 8.3 fl (7.5-11.1); MONO % 9.8 % (3.8-10.2); NEUT % 61.2 % (42.8-82.8); PLATELET COUNT 386 10^3/uL (134-434); RBC 2.99 M/mm3 (3.60-5.2); RDW 12.9 % (11.6-15.6); WHITE BLOOD COUNT 5.4 K/mm3 (4.0-10.0)
[2023-01-26] MEDS: PANTOPRAZOLE 40 MG TABLET PO SCH (09:55)
[2023-01-26] MEDS: HEPARIN NA (PORCINE) 5,000 UNITS/ML 1ML VIAL SQ SCH (09:55)
[2023-01-26] MEDS: CLOPIDOGREL BISULFATE 75 MG TABLET (FP) PO SCH (09:55)
[2023-01-26] MEDS ORDERED: NIFEdipine E.R. 90 MG TABLET PO SCH (10:00)
[2023-01-26] MEDS ORDERED: SENNOSIDES 8.6MG TABLET (FP) PO SCH (10:00)
[2023-01-26 10:10] LABS: ALBUMIN 2.5 g/dl (3.4-5.0); BLOOD UREA NITROGEN 47.4 mg/dL (7-18); CALCIUM 8.5 mg/dL (8.5-10.1); MAGNESIUM 1.9 mg/dL (1.8-2.4)
[2023-01-26 10:13] LABS: CREATININE 2.7 mg/dL (0.55-1.3)
[2023-01-26 10:15] LABS: BILIRUBIN,TOTAL 0.2 mg/dL (0.2-1); TOT PROT 6.2 g/dl (6.4-8.2)
[2023-01-26] MEDS: INSULIN (NOVOLOG) ASPART 100 UNITS/ML 10ML VIAL SQ SCH ×2 (12:00)
[2023-01-26] MEDS: SODIUM ZIRCONIUM CYCLOSILICATE (LOKELMA) 5 GM PACKET PO SCH (13:35)
[2023-01-26 14:47] VITALS: BP 148/67; PULSE 68; TEMP 98.3
== END 2023-01-26 16:01 | disposition home or self-care (01) | DRG 683 ==
LOC: JER 11:06 → UNDOADMOB 14:07 → INTOOBSV 14:07 → JERBED 14:07 → J5S 19:20 → OBSVTOIN 01-24 12:34
PROVIDERS: ADMIT Internal Medicine; ATTEND Internal Medicine
DX: N17.9 Acute kidney failure, unspecified (principal); Q61.02 Congenital multiple renal cysts; E11.65 Type 2 diabetes mellitus with hyperglycemia; E11.43 Type 2 diabetes mellitus with diabetic autonomic (poly)neuropathy; E87.5 Hyperkalemia; K59.00 Constipation, unspecified; N18.9 Chronic kidney disease, unspecified; J45.909 Unspecified asthma, uncomplicated; I10 Essential (primary) hypertension; K21.9 Gastro-esophageal reflux disease without esophagitis; E11.22 Type 2 diabetes mellitus with diabetic chronic kidney disease; E78.5 Hyperlipidemia, unspecified; K31.84 Gastroparesis
CPT/HCPCS: 36415; 70450-TC; 71045-TC-FY; 74176-TC; 76775-TC; 76856-TC; 80048; 80053; 80061; 81003; 82150; 82962; 83036; 83690; 83735; 84100; 84443; 84484; 85025; 85610; 85730; 87086; 93005; 93010; 99285-25; G0378; J1644

== ENCOUNTER 2023-03-02 18:48 | Observation (INO) | payer MEDICARE, OTHER ==
[2023-03-02 20:55] LABS: BASO % 0.8 % (0-2.0); EOS % 2.3 % (0-4.5); HEMATOCRIT 26.1 % (32.4-45.2); HEMOGLOBIN 8.8 GM/dL (10.7-15.3); LYMPH % 20.3 % (8-40); MCH 28.6 pg (25.7-33.7); MCHC 33.8 g/dl (32.0-36.0); MEAN CELL VOLUME 84.6 fl (80-96); MEAN PLT VOLUME 7.9 fl (7.5-11.1); NEUT % 65.6 % (42.8-82.8); PLATELET COUNT 413 10^3/uL (134-434); RBC 3.09 M/mm3 (3.60-5.2); RDW 12.9 % (11.6-15.6); WHITE BLOOD COUNT 6.8 K/mm3 (4.0-10.0)
[2023-03-02 21:07] LABS: POTASSIUM 5.2 mmol/L (3.5-5.1)
[2023-03-02 21:10] LABS: CALCIUM 8.3 mg/dL (8.5-10.1)
[2023-03-02 21:11] LABS: ALBUMIN 2.9 g/dl (3.4-5.0); BLOOD UREA NITROGEN 53.6 mg/dL (7-18); MAGNESIUM 2.3 mg/dL (1.8-2.4)
[2023-03-02 21:14] LABS: CREATININE 2.9 mg/dL (0.55-1.3)
[2023-03-02 21:16] LABS: BILIRUBIN,TOTAL 0.2 mg/dL (0.2-1); TOT PROT 7.1 g/dl (6.4-8.2)
[2023-03-02] MEDS ORDERED: ACETAMINOPHEN 1000 MG/100 ML BAG IVPB ONE (23:12)
[2023-03-02] MEDS ORDERED: ACETAMINOPHEN INJECTION 100 ML IVPB ONE (23:17)
[2023-03-03] MEDS: OXYMETAZOLINE 0.05% NASAL SOLUTION 15 ML BOTTLE NS SCH ×3 (02:10→21:56)
[2023-03-03] MEDS: SODIUM CHLORIDE 1,000 ML IV SCH ×2 (02:10→15:37)
[2023-03-03] MEDS ORDERED: MECLIZINE HCL 25 MG TABLET (FP) PO PRN (03:34)
[2023-03-03] MEDS ORDERED: ONDANSETRON 4 MG TABLET PO PRN (03:34)
[2023-03-03] MEDS ORDERED: ONDANSETRON *ODT* 4 MG TABLET ONE (03:45)
[2023-03-03 04:05] VITALS: BMI 29.8
[2023-03-03] MEDS ORDERED: POLYETHYLENE GLYCOL (HEALTHYLAX) 3350 17 GM PACKET PO SCH (06:00)
[2023-03-03 08:59] LABS: EOS % 2.7 % (0-4.5); HEMATOCRIT 23.2 % (32.4-45.2); HEMOGLOBIN 7.9 GM/dL (10.7-15.3); LYMPH % 21.2 % (8-40); MCH 28.9 pg (25.7-33.7); MCHC 34.2 g/dl (32.0-36.0); MEAN CELL VOLUME 84.7 fl (80-96); MEAN PLT VOLUME 8.1 fl (7.5-11.1); MONO % 10.9 % (3.8-10.2); NEUT % 64.2 % (42.8-82.8); PLATELET COUNT 372 10^3/uL (134-434); RBC 2.74 M/mm3 (3.60-5.2); RDW 12.9 % (11.6-15.6)
[2023-03-03] MEDS: PANTOPRAZOLE 40 MG TABLET PO SCH (09:19)
[2023-03-03] MEDS: NIFEdipine E.R 60 MG TABLET PO SCH (09:19)
[2023-03-03] MEDS: POLYETHYLENE GLYCOL (HEALTHYLAX) 3350 17 GM PACKET PO SCH ×2 (09:20→21:55)
[2023-03-03 09:33] LABS: CHLORIDE 115 mmol/L (98-107); POTASSIUM 5.8 mmol/L (3.5-5.1); SODIUM 143 mmol/L (136-145)
[2023-03-03 09:39] LABS: ALBUMIN 2.5 g/dl (3.4-5.0); ANION GAP 3 MMOL/L (8-16); CALCIUM 8.1 mg/dL (8.5-10.1); CO2 25 mmol/L (21-32)
[2023-03-03 09:40] LABS: BLOOD UREA NITROGEN 55.2 mg/dL (7-18); GLUCOSE,RANDOM 247 mg/dL (74-106); MAGNESIUM 2.1 mg/dL (1.8-2.4)
[2023-03-03 09:42] LABS: CREATININE 2.6 mg/dL (0.55-1.3); SGOT/AST 14 U/L (15-37); SGPT/ALT 20 U/L (13-61)
[2023-03-03 09:43] LABS: BILIRUBIN,TOTAL 0.2 mg/dL (0.2-1); PHOSPHOROUS 4.3 mg/dL (2.5-4.9)
[2023-03-03 09:44] LABS: ALK PHOS 151 U/L (45-117); TOT PROT 6.2 g/dl (6.4-8.2)
[2023-03-03] MEDS ORDERED: SODIUM ZIRCONIUM CYCLOSILICATE (LOKELMA) 5 GM PACKET PO SCH (10:00)
[2023-03-03] MEDS ORDERED: TOPIRAMATE 25 MG TABLET PO SCH (10:00)
[2023-03-03] MEDS ORDERED: LISINOPRIL 5 MG TABLET PO SCH (10:00)
[2023-03-03 14:43] LABS: EPI CELLS 2 /uL (0-25.1); HYALINE CASTS 0 /uL (0-3.1); PH,URINE 7.5 (5.0-8.0); URINE APPEARANCE CLEAR; URINE BACTERIA 27 /uL (0-1359); URINE BILIRUBIN NEGATIVE (NEGATIVE); URINE COLOR YELLOW; URINE GLUCOSE (UA) TRACE (NEGATIVE); URINE KETONE NEGATIVE (NEGATIVE); URINE LEUK ESTERASE NEGATIVE (NEGATIVE); URINE NITRITE NEGATIVE (NEGATIVE); URINE PROTEIN 3+ (NEGATIVE); URINE RBC 18 /uL (0-23.9); URINE UROBILINOGEN 0.2 mg/dL (0.2-1.0); URINE WBC 1 /uL (0-25.8)
[2023-03-03] MEDS: ATORVASTATIN CA 40 MG TABLET (FP) PO SCH (21:55)
[2023-03-03] MEDS: SODIUM ZIRCONIUM CYCLOSILICATE (LOKELMA) 5 GM PACKET PO SCH (21:55)
[2023-03-04] MEDS: SODIUM CHLORIDE 1,000 ML IV SCH (07:37)
[2023-03-04 08:01] LABS: BASO % 0.9 % (0-2.0); EOS % 3.3 % (0-4.5); HEMATOCRIT 22.7 % (32.4-45.2); HEMOGLOBIN 7.6 GM/dL (10.7-15.3); LYMPH % 24.6 % (8-40); MCH 27.7 pg (25.7-33.7); MCHC 33.3 g/dl (32.0-36.0); MEAN CELL VOLUME 83.3 fl (80-96); MEAN PLT VOLUME 7.6 fl (7.5-11.1); MONO % 9.7 % (3.8-10.2); NEUT % 61.5 % (42.8-82.8); PLATELET COUNT 360 10^3/uL (134-434); RBC 2.72 M/mm3 (3.60-5.2); RDW 13.2 % (11.6-15.6); WHITE BLOOD COUNT 6.1 K/mm3 (4.0-10.0)
[2023-03-04 08:09] LABS: CALCIUM 7.7 mg/dL (8.5-10.1)
[2023-03-04 08:10] LABS: ALBUMIN 2.4 g/dl (3.4-5.0); BLOOD UREA NITROGEN 51.2 mg/dL (7-18); MAGNESIUM 1.8 mg/dL (1.8-2.4)
[2023-03-04 08:13] LABS: CREATININE 2.4 mg/dL (0.55-1.3); PHOSPHOROUS 4.5 mg/dL (2.5-4.9)
[2023-03-04 08:14] LABS: BILIRUBIN,TOTAL 0.2 mg/dL (0.2-1)
[2023-03-04] MEDS: SODIUM ZIRCONIUM CYCLOSILICATE (LOKELMA) 5 GM PACKET PO SCH (10:33)
[2023-03-04] MEDS: NIFEdipine E.R 60 MG TABLET PO SCH (10:33)
[2023-03-04] MEDS: CLOPIDOGREL BISULFATE 75 MG TABLET (FP) PO SCH (10:33)
[2023-03-04] MEDS: PANTOPRAZOLE 40 MG TABLET PO SCH (10:33)
[2023-03-04] MEDS: POLYETHYLENE GLYCOL (HEALTHYLAX) 3350 17 GM PACKET PO SCH ×2 (10:33→21:54)
[2023-03-04] MEDS: OXYMETAZOLINE 0.05% NASAL SOLUTION 15 ML BOTTLE NS SCH (10:46)
[2023-03-04] MEDS: ATORVASTATIN CA 40 MG TABLET (FP) PO SCH (21:54)
[2023-03-05 08:05] LABS: HEMATOCRIT 23.4 % (32.4-45.2); HEMOGLOBIN 7.8 GM/dL (10.7-15.3); MCH 27.9 pg (25.7-33.7); MCHC 33.3 g/dl (32.0-36.0); MEAN CELL VOLUME 83.6 fl (80-96); MEAN PLT VOLUME 7.8 fl (7.5-11.1); PLATELET COUNT 386 10^3/uL (134-434); RDW 12.9 % (11.6-15.6); WHITE BLOOD COUNT 6.4 K/mm3 (4.0-10.0)
[2023-03-05 08:25] LABS: POTASSIUM 4.6 mmol/L (3.5-5.1)
[2023-03-05 08:29] LABS: BLOOD UREA NITROGEN 50.2 mg/dL (7-18); CALCIUM 7.9 mg/dL (8.5-10.1)
[2023-03-05 08:30] LABS: ALBUMIN 2.5 g/dl (3.4-5.0)
[2023-03-05 08:32] LABS: CREATININE 2.7 mg/dL (0.55-1.3); PHOSPHOROUS 4.8 mg/dL (2.5-4.9)
[2023-03-05 08:34] LABS: BILIRUBIN,TOTAL 0.4 mg/dL (0.2-1)
[2023-03-05 08:40] LABS: MAGNESIUM 2.1 mg/dL (1.8-2.4)
[2023-03-05] MEDS: CLOPIDOGREL BISULFATE 75 MG TABLET (FP) PO SCH (09:23)
[2023-03-05] MEDS: PANTOPRAZOLE 40 MG TABLET PO SCH (09:23)
[2023-03-05] MEDS: NIFEdipine E.R 60 MG TABLET PO SCH (09:23)
[2023-03-05] MEDS: SODIUM ZIRCONIUM CYCLOSILICATE (LOKELMA) 10 GM PACKET PO SCH (09:23)
[2023-03-05] MEDS: POLYETHYLENE GLYCOL (HEALTHYLAX) 3350 17 GM PACKET PO SCH ×2 (09:23→21:36)
[2023-03-05] MEDS: ATORVASTATIN CA 40 MG TABLET (FP) PO SCH (21:36)
[2023-03-06 07:18] LABS: HEMATOCRIT 21.4 % (32.4-45.2); HEMOGLOBIN 7.4 GM/dL (10.7-15.3); MCHC 34.5 g/dl (32.0-36.0); MEAN CELL VOLUME 84.1 fl (80-96); MEAN PLT VOLUME 7.7 fl (7.5-11.1); PLATELET COUNT 368 10^3/uL (134-434); RBC 2.54 M/mm3 (3.60-5.2); RDW 12.8 % (11.6-15.6); WHITE BLOOD COUNT 6.2 K/mm3 (4.0-10.0)
[2023-03-06 07:44] LABS: POTASSIUM 4.4 mmol/L (3.5-5.1)
[2023-03-06 07:45] LABS: CALCIUM 8.1 mg/dL (8.5-10.1)
[2023-03-06 07:46] LABS: ALBUMIN 2.4 g/dl (3.4-5.0); BLOOD UREA NITROGEN 60.8 mg/dL (7-18)
[2023-03-06 07:48] LABS: PHOSPHOROUS 5.3 mg/dL (2.5-4.9)
[2023-03-06 07:49] LABS: CREATININE 2.9 mg/dL (0.55-1.3)
[2023-03-06 07:51] LABS: BILIRUBIN,TOTAL 0.2 mg/dL (0.2-1)
[2023-03-06] MEDS: NIFEdipine E.R 60 MG TABLET PO SCH (09:29)
[2023-03-06] MEDS: PANTOPRAZOLE 40 MG TABLET PO SCH (09:29)
[2023-03-06] MEDS: CLOPIDOGREL BISULFATE 75 MG TABLET (FP) PO SCH (09:29)
[2023-03-06] MEDS: SODIUM ZIRCONIUM CYCLOSILICATE (LOKELMA) 10 GM PACKET PO SCH (09:30)
[2023-03-06] MEDS: POLYETHYLENE GLYCOL (HEALTHYLAX) 3350 17 GM PACKET PO SCH ×2 (09:30→22:08)
[2023-03-06] MEDS: ATORVASTATIN CA 40 MG TABLET (FP) PO SCH (22:07)
[2023-03-07 08:13] LABS: HEMATOCRIT 23.1 % (32.4-45.2); HEMOGLOBIN 7.7 GM/dL (10.7-15.3); MCHC 33.1 g/dl (32.0-36.0); MEAN CELL VOLUME 84.7 fl (80-96); MEAN PLT VOLUME 7.9 fl (7.5-11.1); PLATELET COUNT 381 10^3/uL (134-434); RBC 2.73 M/mm3 (3.60-5.2); RDW 12.9 % (11.6-15.6); WHITE BLOOD COUNT 6.2 K/mm3 (4.0-10.0)
[2023-03-07 08:52] LABS: POTASSIUM 4.3 mmol/L (3.5-5.1)
[2023-03-07 08:54] LABS: CALCIUM 8.1 mg/dL (8.5-10.1)
[2023-03-07 08:55] LABS: ALBUMIN 2.6 g/dl (3.4-5.0); BLOOD UREA NITROGEN 55.5 mg/dL (7-18)
[2023-03-07 08:58] LABS: CREATININE 2.9 mg/dL (0.55-1.3)
[2023-03-07 09:00] LABS: BILIRUBIN,TOTAL 0.2 mg/dL (0.2-1)
[2023-03-07] MEDS: CLOPIDOGREL BISULFATE 75 MG TABLET (FP) PO SCH (09:25)
[2023-03-07] MEDS: POLYETHYLENE GLYCOL (HEALTHYLAX) 3350 17 GM PACKET PO SCH (09:25)
[2023-03-07] MEDS: SODIUM ZIRCONIUM CYCLOSILICATE (LOKELMA) 10 GM PACKET PO SCH (09:25)
[2023-03-07] MEDS: PANTOPRAZOLE 40 MG TABLET PO SCH (09:26)
[2023-03-07] MEDS: NIFEdipine E.R 60 MG TABLET PO SCH (09:26)
[2023-03-07 14:02] VITALS: BP 153/85; PULSE 69; RESP 18; TEMP 98.4
== END 2023-03-07 15:14 | disposition home or self-care (01) ==
LOC: JER 18:48 → JERBED 21:51 → J4S 03-03 03:52
PROVIDERS: ADMIT Internal Medicine; ATTEND Internal Medicine
PROC: 3E033NZ Introduction of Analgesics, Hypnotics, Sedatives into Peripheral Vein, Percutaneous Approach (ICD-10-PCS; principal; 2023-03-02)
DX: R55 Syncope and collapse (principal); R04.0 Epistaxis; I12.9 Hypertensive chronic kidney disease with stage 1 through stage 4 chronic kidney disease, or unspecified chronic kidney disease; D64.9 Anemia, unspecified; E78.5 Hyperlipidemia, unspecified; K21.00 Gastro-esophageal reflux disease with esophagitis, without bleeding; J45.909 Unspecified asthma, uncomplicated; N18.9 Chronic kidney disease, unspecified; E10.42 Type 1 diabetes mellitus with diabetic polyneuropathy; K59.09 Other constipation; K86.1 Other chronic pancreatitis; Z86.73 Personal history of transient ischemic attack (TIA), and cerebral infarction without residual deficits; R42 Dizziness and giddiness; H35.00 Unspecified background retinopathy; K29.70 Gastritis, unspecified, without bleeding; Z79.4 Long term (current) use of insulin; Z96.41 Presence of insulin pump (external) (internal); Z87.891 Personal history of nicotine dependence
CPT/HCPCS: 36415; 70450-TC; 70486-TC; 70544-TC; 70547-TC; 70551-TC; 71045-TC-FY; 78264-TC; 80053; 80307; 81003; 82728; 82962; 83036; 83540; 83550; 83735; 84100; 84443; 84484; 85025; 85027; 85045; 93005; 93010; 96374; 97116-GP; 97161-GP; 99285-25; A9541; G0378

== ENCOUNTER 2023-05-21 14:59 | Inpatient (IN) | payer MEDICARE, OTHER ==
[2023-05-21] MEDS ORDERED: ACETAMINOPHEN 1000 MG/100 ML BAG IVPB ONE (16:30)
[2023-05-21] MEDS ORDERED: METOCLOPRAMIDE HCL INJECTION 10 MG/2 ML VIAL IVPB ONE (16:30)
[2023-05-21] MEDS ORDERED: METOCLOPRAMIDE HCL INJECTION 10 MG/2 ML VIAL ONE (16:40)
[2023-05-21] MEDS ORDERED: ACETAMINOPHEN INJECTION 100 ML IVPB ONE (16:41)
[2023-05-21 18:09] LABS: BASO % 0.9 % (0-2.0); HEMATOCRIT 25.7 % (32.4-45.2); HEMOGLOBIN 8.4 GM/dL (10.7-15.3); LYMPH % 19.8 % (8-40); MCHC 32.7 g/dl (32.0-36.0); MEAN CELL VOLUME 85.6 fl (80-96); MEAN PLT VOLUME 7.7 fl (7.5-11.1); MONO % 8.6 % (3.8-10.2); NEUT % 68.7 % (42.8-82.8); PLATELET COUNT 451 10^3/uL (134-434); RBC 3.01 M/mm3 (3.60-5.2); RDW 13.2 % (11.6-15.6); WHITE BLOOD COUNT 7.8 K/mm3 (4.0-10.0)
[2023-05-21 18:22] LABS: VENOUS BASE EXCESS -2.5 mmol/L (-2-2); VENOUS O2 SATURATION 31.2 % (70-80); VENOUS PCO2 44.7 mmHg (38-52); VENOUS PH 7.337 (7.310-7.410)
[2023-05-21 18:32] LABS: POTASSIUM 5.5 mmol/L (3.5-5.1)
[2023-05-21 18:34] LABS: ALBUMIN 2.8 g/dl (3.4-5.0); CALCIUM 8.3 mg/dL (8.5-10.1)
[2023-05-21 18:35] LABS: BLOOD UREA NITROGEN 40.2 mg/dL (7-18)
[2023-05-21 18:37] LABS: CREATININE 2.5 mg/dL (0.55-1.3)
[2023-05-21 18:39] LABS: BILIRUBIN,TOTAL 0.2 mg/dL (0.2-1); TOT PROT 6.6 g/dl (6.4-8.2)
[2023-05-22] MEDS ORDERED: SODIUM CHLORIDE 0.9% 500 ML INFUS.BAG IV ONE (02:04)
[2023-05-22] MEDS ORDERED: SODIUM CHLORIDE 1,000 ML IV SCH (04:30)
[2023-05-22] MEDS ORDERED: SODIUM POLYSTYRENE SULFONATE 15 GM/60 ML BOTTLE PO ONE (06:48)
[2023-05-22] MEDS ORDERED: CLOPIDOGREL BISULFATE 75 MG TABLET (FP) ONE (09:26)
[2023-05-22] MEDS ORDERED: NIFEdipine E.R 60 MG TABLET PO ONE (09:26)
[2023-05-22] MEDS ORDERED: NIFEdipine E.R 60 MG TABLET PO SCH (10:00)
[2023-05-22] MEDS ORDERED: CLOPIDOGREL BISULFATE 75 MG TABLET (FP) PO SCH (10:00)
[2023-05-22] MEDS ORDERED: NIFEdipine E.R. 30 MG TABLET PO ONE (10:07)
[2023-05-22] MEDS: NIFEdipine E.R. 90 MG TABLET PO SCH (10:11)
[2023-05-22] MEDS ORDERED: METOCLOPRAMIDE HCL 10 MG TABLET (FP) PO ONE (10:15)
[2023-05-22] MEDS: METOCLOPRAMIDE HCL 10 MG TABLET (FP) PO SCH ×2 (10:19→16:41)
[2023-05-22 12:07] LABS: EPI CELLS 18 /uL (0-25.1); HYALINE CASTS 0 /uL (0-3.1); URINE APPEARANCE CLEAR; URINE BACTERIA 267 /uL (0-1359); URINE BILIRUBIN NEGATIVE (NEGATIVE); URINE COLOR YELLOW; URINE GLUCOSE (UA) TRACE (NEGATIVE); URINE KETONE NEGATIVE (NEGATIVE); URINE LEUK ESTERASE NEGATIVE (NEGATIVE); URINE NITRITE NEGATIVE (NEGATIVE); URINE PROTEIN 3+ (NEGATIVE); URINE RBC 39 /uL (0-23.9); URINE UROBILINOGEN 0.2 mg/dL (0.2-1.0); URINE WBC 9 /uL (0-25.8)
[2023-05-22] MEDS ORDERED: HEPARIN NA (PORCINE) 5,000 UNITS/ML 1ML VIAL ONE (14:16)
[2023-05-22] MEDS: HEPARIN NA (PORCINE) 5,000 UNITS/ML 1ML VIAL SQ SCH ×2 (14:20→21:44)
[2023-05-22] MEDS: SODIUM CHLORIDE 0.45% 1,000 ML IV SCH (15:52)
[2023-05-22] MEDS: SODIUM ZIRCONIUM CYCLOSILICATE (LOKELMA) 5 GM PACKET PO SCH (15:52)
[2023-05-22 16:34] VITALS: BMI 26.6
[2023-05-22] MEDS: ATORVASTATIN CA 40 MG TABLET (FP) PO SCH (21:44)
[2023-05-23] MEDS ORDERED: ONDANSETRON 4 MG/2 ML VIAL IVPUSH ONE (02:39)
[2023-05-23] MEDS: SENNOSIDES 8.6MG TABLET (FP) PO PRN (03:02)
[2023-05-23] MEDS: INSULIN SLIDING SCALE (NOVOLOG) 1 VIAL SQ SCH ×4 (06:43→21:58)
[2023-05-23] MEDS: METOCLOPRAMIDE HCL 10 MG TABLET (FP) PO SCH ×3 (06:43→15:49)
[2023-05-23] MEDS: HEPARIN NA (PORCINE) 5,000 UNITS/ML 1ML VIAL SQ SCH ×4 (06:43→21:59)
[2023-05-23] MEDS: SODIUM CHLORIDE 0.45% 1,000 ML IV SCH ×2 (06:44→15:50)
[2023-05-23 08:02] LABS: EOS % 1.3 % (0-4.5); HEMATOCRIT 27.7 % (32.4-45.2); HEMOGLOBIN 9.1 GM/dL (10.7-15.3); LYMPH % 12.4 % (8-40); MCH 28.4 pg (25.7-33.7); MCHC 32.8 g/dl (32.0-36.0); MEAN CELL VOLUME 86.5 fl (80-96); MEAN PLT VOLUME 7.7 fl (7.5-11.1); MONO % 4.7 % (3.8-10.2); NEUT % 80.6 % (42.8-82.8); PLATELET COUNT 382 10^3/uL (134-434); RBC 3.21 M/mm3 (3.60-5.2); RDW 13.1 % (11.6-15.6); WHITE BLOOD COUNT 8.2 K/mm3 (4.0-10.0)
[2023-05-23 08:23] LABS: CHLORIDE 106 mmol/L (98-107); POTASSIUM 4.2 mmol/L (3.5-5.1); SODIUM 136 mmol/L (136-145)
[2023-05-23 08:29] LABS: ALBUMIN 2.6 g/dl (3.4-5.0); ANION GAP 10 mmol/L (4-13); CO2 20 mmol/L (21-32); MAGNESIUM 1.7 mg/dL (1.8-2.4)
[2023-05-23 08:31] LABS: PHOSPHOROUS 4.4 mg/dL (2.5-4.9); SGPT/ALT 13 U/L (13-61)
[2023-05-23 08:32] LABS: CREATININE 2.4 mg/dL (0.55-1.3); SGOT/AST 10 U/L (15-37)
[2023-05-23 08:33] LABS: BILIRUBIN,TOTAL 0.3 mg/dL (0.2-1); TOT PROT 6.2 g/dl (6.4-8.2)
[2023-05-23 08:34] LABS: ALK PHOS 122 U/L (45-117)
[2023-05-23 09:07] VITALS: RESP 18
[2023-05-23] MEDS: NIFEdipine E.R. 90 MG TABLET PO SCH (09:12)
[2023-05-23] MEDS: SODIUM ZIRCONIUM CYCLOSILICATE (LOKELMA) 5 GM PACKET PO SCH (09:12)
[2023-05-23 09:17] LABS: GLUCOSE,RANDOM 413 mg/dL (74-106)
[2023-05-23] MEDS: POLYETHYLENE GLYCOL (HEALTHYLAX) 3350 17 GM PACKET PO SCH ×2 (19:50→21:51)
[2023-05-23] MEDS: ATORVASTATIN CA 40 MG TABLET (FP) PO SCH (21:51)
[2023-05-24] MEDS: SENNOSIDES 8.6MG TABLET (FP) PO PRN (00:54)
[2023-05-24] MEDS: METOCLOPRAMIDE HCL 10 MG TABLET (FP) PO SCH ×2 (06:01→10:06)
[2023-05-24] MEDS: HEPARIN NA (PORCINE) 5,000 UNITS/ML 1ML VIAL SQ SCH ×2 (06:01→14:08)
[2023-05-24] MEDS: INSULIN SLIDING SCALE (NOVOLOG) 1 VIAL SQ SCH ×3 (06:23→11:45)
[2023-05-24 09:59] LABS: BASO % 0.4 % (0-2.0); EOS % 0.1 % (0-4.5); HEMATOCRIT 27.7 % (32.4-45.2); HEMOGLOBIN 9.2 GM/dL (10.7-15.3); LYMPH % 4.9 % (8-40); MCH 28.1 pg (25.7-33.7); MCHC 33.3 g/dl (32.0-36.0); MEAN CELL VOLUME 84.6 fl (80-96); MEAN PLT VOLUME 7.5 fl (7.5-11.1); MONO % 4.9 % (3.8-10.2); NEUT % 89.7 % (42.8-82.8); PLATELET COUNT 378 10^3/uL (134-434); RBC 3.27 M/mm3 (3.60-5.2); RDW 13.1 % (11.6-15.6); WHITE BLOOD COUNT 13.7 K/mm3 (4.0-10.0)
[2023-05-24] MEDS: POLYETHYLENE GLYCOL (HEALTHYLAX) 3350 17 GM PACKET PO SCH (10:06)
[2023-05-24] MEDS: SODIUM ZIRCONIUM CYCLOSILICATE (LOKELMA) 5 GM PACKET PO SCH (10:06)
[2023-05-24] MEDS: NIFEdipine E.R. 90 MG TABLET PO SCH (10:06)
[2023-05-24 10:21] LABS: POTASSIUM 3.6 mmol/L (3.5-5.1)
[2023-05-24 10:29] LABS: ALBUMIN 2.8 g/dl (3.4-5.0); BLOOD UREA NITROGEN 34.8 mg/dL (7-18); CREATININE 2.6 mg/dL (0.55-1.3)
[2023-05-24 10:30] LABS: BILIRUBIN,TOTAL 0.2 mg/dL (0.2-1); TOT PROT 6.3 g/dl (6.4-8.2)
[2023-05-24 10:33] LABS: CALCIUM 8.1 mg/dL (8.5-10.1)
[2023-05-24] MEDS ORDERED: SODIUM CHLORIDE 500 ML IV STA (10:46)
[2023-05-24] MEDS ORDERED: LACTULOSE 20 GM/30 ML UDC (FOR ORAL USE ONLY) PO ONE (11:15)
[2023-05-24 14:48] VITALS: BP 163/84; PULSE 76; TEMP 98.3
== END 2023-05-24 15:46 | disposition home or self-care (01) | DRG 74 ==
LOC: JER 14:59 → JERBED 05-22 01:56 → OBSVTOIN 05-22 04:23 → J7W 05-22 15:30
PROVIDERS: ADMIT Internal Medicine; ATTEND Internal Medicine
PROC: 30233N1 Transfusion of Nonautologous Red Blood Cells into Peripheral Vein, Percutaneous Approach (ICD-10-PCS; principal; 2023-05-22)
DX: E11.43 Type 2 diabetes mellitus with diabetic autonomic (poly)neuropathy (principal); N17.9 Acute kidney failure, unspecified; D64.9 Anemia, unspecified; J45.909 Unspecified asthma, uncomplicated; E11.65 Type 2 diabetes mellitus with hyperglycemia; I12.9 Hypertensive chronic kidney disease with stage 1 through stage 4 chronic kidney disease, or unspecified chronic kidney disease; E11.22 Type 2 diabetes mellitus with diabetic chronic kidney disease; N18.9 Chronic kidney disease, unspecified; Z79.4 Long term (current) use of insulin; E78.5 Hyperlipidemia, unspecified; K21.9 Gastro-esophageal reflux disease without esophagitis; N28.1 Cyst of kidney, acquired; K59.00 Constipation, unspecified; E87.5 Hyperkalemia; K31.84 Gastroparesis
CPT/HCPCS: 36415; 36430; 70450-TC; 71045-TC-FY; 74176-TC; 80048; 80053; 81003; 82010; 82803; 82962; 83690; 83735; 84100; 84484; 85025; 86850; 86900; 86901; 86922; 93005; 93010; 93971-TC; 99285-25; G0378; J1644; P9058

== ENCOUNTER 2023-12-03 04:40 | Day surgery (SDC) | payer MEDICARE, OTHER ==
[2023-12-01 13:16] VITALS: BMI 25.9
[2023-12-03 08:41] VITALS: TEMP 97.7
[2023-12-03 08:51] VITALS: RESP 18
[2023-12-03 09:22] VITALS: PULSE 64
[2023-12-03 09:23] VITALS: BP 137/62
== END 2023-12-03 09:23 | disposition home or self-care (01) ==
LOC: JASU-ENDO 04:40
PROVIDERS: ATTEND Student in an Organized Health Care Education/Training Program
PROC: 0DBM8ZX Excision of Descending Colon, Via Natural or Artificial Opening Endoscopic, Diagnostic (ICD-10-PCS; principal; 2023-12-03 08:00)
DX: Z12.11 Encounter for screening for malignant neoplasm of colon (principal); D12.4 Benign neoplasm of descending colon; K64.8 Other hemorrhoids; Z86.010 Personal history of colon polyps; I10 Essential (primary) hypertension
CPT/HCPCS: 82962; 88305-TC

== ENCOUNTER 2024-05-15 11:52 | Observation (INO) | payer MEDICARE, OTHER ==
[2024-05-15 14:39] LABS: EOS % 1.3 % (0-4.5); HEMATOCRIT 26.1 % (32.4-45.2); HEMOGLOBIN 8.8 GM/dL (10.7-15.3); LYMPH % 21.9 % (8-40); MCH 28.9 pg (25.7-33.7); MCHC 33.8 g/dl (32.0-36.0); MEAN CELL VOLUME 85.4 fl (80-96); MEAN PLT VOLUME 7.2 fl (7.5-11.1); MONO % 8.8 % (3.8-10.2); PLATELET COUNT 429 10^3/uL (134-434); RBC 3.05 M/mm3 (3.60-5.2); RDW 13.2 % (11.6-15.6)
[2024-05-15 14:40] LABS: VENOUS BASE EXCESS -3.5 mmol/L (-2-2); VENOUS O2 SATURATION 20.6 % (70-80); VENOUS PCO2 46.2 mmHg (38-52); VENOUS PH 7.309 (7.310-7.410)
[2024-05-15 14:41] LABS: EPI CELLS 9 /uL (0-25.1); HYALINE CASTS 0 /uL (0-3.1); PH,URINE 6.5 (5.0-8.0); URINE APPEARANCE CLOUDY; URINE BACTERIA 136 /uL (0-1359); URINE BILIRUBIN NEGATIVE (NEGATIVE); URINE COLOR YELLOW; URINE GLUCOSE (UA) 1+ (NEGATIVE); URINE KETONE NEGATIVE (NEGATIVE); URINE LEUK ESTERASE NEGATIVE (NEGATIVE); URINE NITRITE NEGATIVE (NEGATIVE); URINE PROTEIN 3+ (NEGATIVE); URINE RBC 18 /uL (0-23.9); URINE UROBILINOGEN 0.2 mg/dL (0.2-1.0); URINE WBC 12 /uL (0-25.8)
[2024-05-15 14:45] LABS: INR 1.13 (0.83-1.09); PROTHROMBIN TIME (PATIENT) 12.7 SEC (9.7-13.0)
[2024-05-15 14:48] LABS: ACTIVATED PTT 38.5 SECONDS (25.2-36.5)
[2024-05-15 14:59] LABS: POTASSIUM 4.9 mmol/L (3.5-5.1)
[2024-05-15 15:01] LABS: CALCIUM 8.6 mg/dL (8.5-10.1)
[2024-05-15 15:02] LABS: BLOOD UREA NITROGEN 62.2 mg/dL (7-18)
[2024-05-15 15:03] LABS: ALBUMIN 3.1 g/dl (3.4-5.0); MAGNESIUM 2.4 mg/dL (1.8-2.4)
[2024-05-15 15:05] LABS: CREATININE 3.6 mg/dL (0.55-1.3)
[2024-05-15 15:07] LABS: BILIRUBIN,TOTAL 0.3 mg/dL (0.2-1); PHOSPHOROUS 4.8 mg/dL (2.5-4.9)
[2024-05-15] MEDS ORDERED: ACETAMINOPHEN 500 MG TABLET (FP) ONE (16:05)
[2024-05-15] MEDS: ACETAMINOPHEN 500 MG TABLET (FP) PO ONE (16:10)
[2024-05-15] MEDS: LACTATED RINGERS SOLUTION 1000 ML INFUS.BAG IV ONE (16:20)
[2024-05-15 17:17] LABS: RETICULOCYTES 1.25 % (0.5-1.5)
[2024-05-15 17:20] LABS: IRON SERUM 86 ug/dL (50-175); TOTAL IRON BINDING CAPACITY 288 ug/dL (250-450)
[2024-05-15] MEDS ORDERED: MECLIZINE HCL 25 MG TABLET (FP) ONE (17:59)
[2024-05-15] MEDS: MECLIZINE HCL 25 MG TABLET (FP) PO SCH (18:03)
[2024-05-15] MEDS: EPOETIN ALFA-EPBX 10,000 UNIT/ML VIAL SQ ONE (21:48)
[2024-05-15] MEDS: ATORVASTATIN CA 40 MG TABLET (FP) PO SCH (21:50)
[2024-05-15] MEDS: HEPARIN NA (PORCINE) 5,000 UNITS/ML 1ML VIAL SQ SCH (21:50)
[2024-05-15 23:36] VITALS: BMI 27.7
[2024-05-16] MEDS: PANTOPRAZOLE 40 MG TABLET PO SCH (09:02)
[2024-05-16] MEDS: NIFEdipine E.R. 90 MG TABLET PO SCH (09:02)
[2024-05-16 09:38] LABS: BASO % 1.5 % (0-2.0); EOS % 2.4 % (0-4.5); HEMATOCRIT 24.6 % (32.4-45.2); HEMOGLOBIN 8.3 GM/dL (10.7-15.3); LYMPH % 24.1 % (8-40); MCH 28.8 pg (25.7-33.7); MCHC 33.7 g/dl (32.0-36.0); MEAN CELL VOLUME 85.4 fl (80-96); MEAN PLT VOLUME 7.8 fl (7.5-11.1); PLATELET COUNT 417 10^3/uL (134-434); RBC 2.88 M/mm3 (3.60-5.2); RDW 13.2 % (11.6-15.6); WHITE BLOOD COUNT 5.1 K/mm3 (4.0-10.0)
[2024-05-16] MEDS ORDERED: PATIENT'S OWN MEDICATION (NON-FORMULARY) (Linaclotide [Linzess] 290 MCG Capsule) PO SCH (10:00)
[2024-05-16 10:37] LABS: POTASSIUM 4.5 mmol/L (3.5-5.1)
[2024-05-16 10:43] LABS: CALCIUM 8.8 mg/dL (8.5-10.1)
[2024-05-16 10:44] LABS: BLOOD UREA NITROGEN 56.5 mg/dL (7-18); MAGNESIUM 2.3 mg/dL (1.8-2.4)
[2024-05-16 10:45] LABS: BILIRUBIN,TOTAL 0.2 mg/dL (0.2-1)
[2024-05-16 10:46] LABS: TOT PROT 6.6 g/dl (6.4-8.2)
[2024-05-16 10:51] LABS: CREATININE 3.5 mg/dL (0.55-1.3); PHOSPHOROUS 5.6 mg/dL (2.5-4.9)
[2024-05-16] MEDS: POLYETHYLENE GLYCOL (HEALTHYLAX) 3350 17 GM PACKET PO SCH (12:19)
[2024-05-16] MEDS ORDERED: MIDODRINE HCL 5 MG TABLET PO SCH (14:00)
[2024-05-16] MEDS: INSULIN ASPART SLIDING SCALE (NOVOLOG) 1 VIAL SQ SCH (16:22)
[2024-05-16] MEDS: MIDODRINE HCL 2.5 MG TABLET PO SCH (17:34)
[2024-05-16] MEDS: INSULIN (LEVEMIR) 100 UNITS/ML UNITS SQ SCH (21:14)
[2024-05-16] MEDS ORDERED: INSULIN (LEVEMIR) 100 UNITS/ML UNITS SQ SCH (22:00)
[2024-05-17 10:34] LABS: BASO % 1.2 % (0-2.0); EOS % 2.5 % (0-4.5); HEMATOCRIT 25.6 % (32.4-45.2); HEMOGLOBIN 8.5 GM/dL (10.7-15.3); LYMPH % 22.1 % (8-40); MCH 28.6 pg (25.7-33.7); MCHC 33.3 g/dl (32.0-36.0); MEAN CELL VOLUME 85.8 fl (80-96); MEAN PLT VOLUME 7.7 fl (7.5-11.1); MONO % 8.3 % (3.8-10.2); NEUT % 65.9 % (42.8-82.8); PLATELET COUNT 400 10^3/uL (134-434); RBC 2.99 M/mm3 (3.60-5.2); RDW 13.2 % (11.6-15.6); RETICULOCYTES 1.04 % (0.5-1.5); WHITE BLOOD COUNT 5.6 K/mm3 (4.0-10.0)
[2024-05-17] MEDS ORDERED: MIDODRINE HCL 2.5 MG TABLET PO SCH (10:42)
[2024-05-17 10:54] LABS: CALCIUM 8.2 mg/dL (8.5-10.1)
[2024-05-17 10:55] LABS: BLOOD UREA NITROGEN 63.7 mg/dL (7-18)
[2024-05-17 10:58] LABS: CREATININE 3.7 mg/dL (0.55-1.3)
[2024-05-17 10:59] LABS: BILIRUBIN,TOTAL 0.2 mg/dL (0.2-1)
[2024-05-17 11:00] LABS: TOT PROT 6.7 g/dl (6.4-8.2)
[2024-05-17] MEDS: BISACODYL 10 MG SUPP.RECT PR ONE (15:35)
[2024-05-18] MEDS: EPOETIN ALFA-EPBX 10,000 UNIT/ML VIAL SQ ONE (09:15)
[2024-05-18 13:35] VITALS: BP 132/60; PULSE 69; RESP 18; TEMP 98.1
== END 2024-05-18 14:29 | disposition home or self-care (01) ==
LOC: JER 11:52 → JERBED 15:13 → J6S 18:50
PROVIDERS: ADMIT Internal Medicine; ATTEND Internal Medicine
PROC: 3E013VG Introduction of Insulin into Subcutaneous Tissue, Percutaneous Approach (ICD-10-PCS; principal; 2024-05-15)
PROC: 3E023GC Introduction of Other Therapeutic Substance into Muscle, Percutaneous Approach (ICD-10-PCS; 2024-05-15)
PROC: 3E0337Z Introduction of Electrolytic and Water Balance Substance into Peripheral Vein, Percutaneous Approach (ICD-10-PCS; 2024-05-15)
DX: R42 Dizziness and giddiness (principal); I12.9 Hypertensive chronic kidney disease with stage 1 through stage 4 chronic kidney disease, or unspecified chronic kidney disease; N17.9 Acute kidney failure, unspecified; E78.5 Hyperlipidemia, unspecified; I95.1 Orthostatic hypotension; D64.9 Anemia, unspecified; E10.9 Type 1 diabetes mellitus without complications; R25.2 Cramp and spasm; N18.9 Chronic kidney disease, unspecified; Z79.4 Long term (current) use of insulin; Z96.41 Presence of insulin pump (external) (internal); J45.909 Unspecified asthma, uncomplicated; K21.9 Gastro-esophageal reflux disease without esophagitis; I69.90 Unspecified sequelae of unspecified cerebrovascular disease; Z90.49 Acquired absence of other specified parts of digestive tract; Z87.891 Personal history of nicotine dependence
CPT/HCPCS: 0241U-QW; 36415; 70450-TC; 70551-TC; 71045-TC-FY; 76705-TC; 76775-TC; 80053; 81003; 82533; 82728; 82803; 82962; 83036; 83540; 83550; 83690; 83735; 84100; 84300; 84443; 84484; 85025; 85045; 85610; 85730; 86850; 86900; 86901; 87086; 93005; 93010; 93306-TC; 93880-TC; 93970-TC; 96372; 97116-GP; 97161-GP; 99285-25; G0378; J1644; Q5106